=== PATIENT | female | born 1995 | race Caucasian/White ===

== ENCOUNTER → 2021-02-11 14:50 | Outpatient (CLI) | payer OTHER, SELFPAY ==
[2021-02-11 15:15] LABS: COVID19 -Nasal RAPID POSITIVE (Negative)
== END ==
PROVIDERS: Visit Provider Physician Assistant
DX: U07.1 COVID-19 (principal)
CPT/HCPCS: 87635

== ENCOUNTER → 2021-08-29 07:06 | Outpatient (CLI) | payer OTHER, SELFPAY ==
[2021-08-29 09:34] LABS: Glucose 1 Hour 126 mg/dL (70-170)
[2021-08-29 09:34] LABS: Glucose Fasting 81 mg/dL (70-100)
[2021-08-29 09:38] LABS: Glucose Tol Interpretation INTERPRETATION
[2021-08-29 10:32] LABS: Glucose 2 Hour 115 mg/dL (70-140)
== END ==
PROVIDERS: Referring Provider Nurse Practitioner Obstetrics & Gynecology; Visit Provider Nurse Practitioner Obstetrics & Gynecology
DX: Z13.1 Encounter for screening for diabetes mellitus (principal)
CPT/HCPCS: 36415; 82951; 82952

== ENCOUNTER → 2021-09-28 12:15 | Outpatient (CLI) | payer OTHER, SELFPAY ==
--- NOTE | 2021-09-28 | DI.US.S_ITS ---
PROCEDURE: US OB >= 14 WEEKS FETUS INDICATIONS: 20 WEEK ANATOMY OUTSIDE/PRIOR DATING DATA: Last menstrual period (LMP): 05/03/2021. LMP-based estimated date of delivery (SILVIO): 02/07/2022 First dating scan (date and location): 09/28/2021. Estimated date of delivery (SILVIO) from first dating scan: 02/04/2022. TECHNIQUE: Real-time scanning was performed of the fetus, with image documentation and biometric measurements. COMPARISON: None. FINDINGS: General: A single living intrauterine gestation is present. Presentation: Transverse, head is towards maternal right side. Placenta: Placental position is right anterior, without previa. Amniotic fluid index: 18.9 cm, normal range is 5-24 cm. Single deepest vertical pocket is 5.6 cm. heart rate: 141 beats per minute. Maternal cervical canal: 4.4 cm long. Normal lower limit is 2.5 cm. biometrics: Biparietal diameter: 5.2 cm, 21 weeks, 6 days. Head circumference: 19.3 cm, 21 weeks, 4 days. Abdominal circumference: 16.0 cm, 21 weeks, 1 day. Femur length: 3.7 cm, 21 weeks, 6 days Clinically estimated gestational age: . 21 weeks, 1 day. Composite gestational age from present scan: 21 weeks, 4 days. Estimated weight and percentile: 426 g, 62% Anatomic survey: Neuro: Ventricles are non-dilated at less than 10 mm. Cisterna magna is normal at 3-11 mm. Cerebellum is normal in size and morphology. Nuchal skin fold: Normal at less than 6 mm between 14-21 weeks gestational age. Face: Nose and lips, facial profile are normal. Spine: No evidence for spina bifida. Heart: 4-chambered heart is present, with normal ventricular outflow tracts. Diaphragm: Diaphragm is intact. Stomach: Left-sided stomach is present. Kidneys: No hydronephrosis. Normal is less than 5 mm in 2nd trimester, less than 7 mm in 3rd trimester. Cord: 3-vessel cord has orthotopic insertion. Bladder: Normal in size. Extremities: All 4 extremities identified. IMPRESSION: 1. Single live intrauterine with fetus in transverse presentation. heart rate is 141 beats per minute. Normal amount of amniotic fluid. Normal growth with estimated weight measures 426 g and is at 62%. 2. Normal anatomic survey. We strive to produce accurate, complete, and clear reports of imaging services. To assist us in improving patient care, this report was composed using standard report templates and voice recognition software. Therefore, it may contain abnormal punctuation, insertions and/or omissions. Occasional wrong-word or sound-alike substitutions may occur. Though we review the report and make efforts to correct it, we do recommend that the report be read carefully in proper context to recognize any text inaccuracies. Dictated by: Mk Wallace M.D. on 09/28/2021 at 14:12 Approved by: Mk Wallace M.D. on 09/28/2021 at 14:15
== END ==
PROVIDERS: Referring Provider Nurse Practitioner Obstetrics & Gynecology; Visit Provider Nurse Practitioner Obstetrics & Gynecology
DX: Z34.92 Encounter for supervision of normal pregnancy, unspecified, second trimester (principal); Z3A.21 21 weeks gestation of pregnancy
CPT/HCPCS: 76811

== ENCOUNTER → 2021-10-31 07:10 | Outpatient (CLI) | payer OTHER, SELFPAY ==
[2021-10-31 08:55] LABS: Hematocrit 36.8 % (36-46); Hemoglobin 11.9 g/dL (12.0-16.0); Mean Corpuscular HGB Conc 32.4 % (30-36); Mean Corpuscular Hemoglobin 27.8 PG (26-34); Platelet Count 308 X10^3/uL (150-400); Red Blood Cell Count 4.28 X10^6/uL (4.0-5.2)
[2021-10-31 09:20] LABS: Glucose Fasting 80 mg/dL (70-100)
[2021-10-31 09:53] LABS: Glucose Tol Interpretation INTERPRETATION
[2021-10-31 10:15] LABS: Glucose 1 Hour 93 mg/dL (70-170)
[2021-10-31 11:44] LABS: Glucose 2 Hour 114 mg/dL (70-140)
== END ==
PROVIDERS: Referring Provider Nurse Practitioner Obstetrics & Gynecology; Visit Provider Nurse Practitioner Obstetrics & Gynecology
DX: Z34.90 Encounter for supervision of normal pregnancy, unspecified, unspecified trimester (principal); Z3A.26 26 weeks gestation of pregnancy
CPT/HCPCS: 36415; 82951; 82952; 85027

== ENCOUNTER 2021-12-29 15:35 | Observation (INO) | payer OTHER, SELFPAY ==
[2021-12-29] VITALS (9 sets, daily range): BP systolic 122–141; BP diastolic 66–97; PULSE 97–116; RESP 18–29; TEMP 36.8; O2SAT 96–98; BMI 44.1
--- NOTE | 2021-12-29 15:51 | DI.RAD.S_ITS ---
PROCEDURE: XR CHEST 2V INDICATIONS: shortness of breath TECHNIQUE: 2 views of the chest were acquired. COMPARISON: None. FINDINGS: Surgical changes and devices: None. Lungs and pleura: Lungs are clear. No pleural effusions or pneumothorax. Mediastinum: Mediastinal contours are normal. Heart size is normal. Bones and chest wall: No suspicious bony abnormalities. Soft tissues appear unremarkable. IMPRESSION: No acute pulmonary process. Dictated by: Radha Lind M.D. on 12/29/2021 at 15:21 Approved by: Radha Lind M.D. on 12/29/2021 at 15:21
--- NOTE | 2021-12-29 16:24 | ED_ITS ---
HPI - Chest Pain General Chief Complaint: Chest Pain Stated Complaint: Troubled breathing, possible UTI Time Seen by Provider: 12/29/21 16:05 Source: patient Mode of arrival: Ambulatory Limitations: no limitations History of Present Illness HPI narrative: Patient is a 26-year-old female currently 34 weeks history of asthma presenting today this chest discomfort and shortness of breath. She says been ongoing for the last 4 days. She has been using her albuterol inhaler but not getting much relief. She says that she has or shortness of breath with exertion normal all. She experiences some chest tightness as well. She denies any fever or cough. She is having some abdominal pain affect yesterday she felt like she did when she stood up yesterday but today it is better. No vaginal bleeding. She also is having some low back discomfort with has low discomfort. No vaginal bleeding. Related Data Previous Rx's Medication Instructions Recorded albuterol sulfate 90 mcg/actuation 2 puff INHALATION Q4-6H PRN #8.5 g 02/11/21 aerosol inhaler cephalexin 500 mg capsule 500 mg PO BID 7 Days #14 cap 12/29/21 Review of Systems Review of Systems Narrative: GENERAL: Denies chills, fatigue, malaise, fever, sweats, travel HEENT: Denies sinus pain, ear pain, sore throat, difficulty swallowing, neck pain RESPIRATORY: See HPI CARDIOVASCULAR: see HPI GASTROINTESTINAL: Denies nausea, vomiting, abdominal pain, diarrhea, constipation, melena. : Denies dysuria, frequency, incontinence, hematuria, urinary retention, flank pain. MUSCULOSKELETAL: Denies weakness, joint pain, or bony pain SKIN: No rash, no erythema, no pruritus NEUROLOGIC: Denies weakness, dizziness, headache, numbness, change in speech, confusion PSYCHIATRIC: No concerning psychosocial issues. 12 point review of systems is negative except for those stated above and HPI Patient History Social History Smoking Status: Never smoker Smoking Status: Never smoker Exam Initial Vital Signs Initial Vital Signs: Vital Signs Temperature 98.3 F 12/29/21 15:50 Pulse Rate 116 H 12/29/21 15:50 Respiratory Rate 18 12/29/21 15:50 Blood Pressure 122/85 12/29/21 15:50 Pulse Oximetry 98 12/29/21 15:50 GENERAL: Alert pleasant 26-year-old female and in no acute distress. HEENT: Head atraumatic,EOMI, pupils reactive, face symmetric, moist mucous membranes CARDIOVASCULAR: Regular rate and rhythm without murmurs, rubs or gallops. RESPIRATORY: Breath sounds equal bilaterally, no wheezes rales or rhonchi. ABDOMEN: Soft, nontender. Gravid nontender. Normoactive bowel sounds all 4 quadrants. No guarding or rebound. : No CVA tenderness EXTREMITIES: Normal range of motion, no clubbing or edema. Neurovascularly intact NEUROLOGICAL: Alert and oriented x4.Normal gait and speech. SKIN: Warm, dry, no laceration, no petechiae, no rashes or lesions. Course Orders Ordered: ED Orders 12/29/21 15:51 XR chest 2V Stat EKG-12 Lead Stat Measure peak expiratory flow ONCE RT Consult Eval and Treat Now 12/29/21 16:05 UA Complete [Urinalysis and Microscopic] Stat 12/29/21 16:19 COVID19 -Nasal RAPID/Pre-Proc Stat Complete Blood Count AUTO DIFF Stat Comprehensive Metabolic Panel Stat NT-proBNP (BNP-Adult 18+) Stat Prothrombin Time INR Stat 12/29/21 17:55 Troponin & CK Cardiac Panel Stat Discontinued Medications Albuterol (Albuterol 2.5 Mg/3 Ml Neb (Adult)) 2.5 mg INH NOW ONE Stop: 12/29/21 16:32 Last Admin: 12/29/21 17:33 Dose: 2.5 mg Documented by: RIYA Lactated Ringer's (Lactated Ringers) 1,000 mls @ 1,000 mls/hr IV BOLUS ONE Stop: 12/29/21 18:01 Last Infusion: 12/29/21 18:13 Dose: 0 mls/hr Documented by: Admin: 12/29/21 17:05 Dose: 1,000 mls/hr Documented by: OMAR Vital Signs Vital signs: Vital Signs - 8 hr 12/29/21 15:50 12/29/21 16:13 12/29/21 16:30 Temperature 98.3 F Pulse Rate 116 H 104 H 98 H Respiratory Rate 18 19 Blood Pressure 122/85 140/97 H Pulse Oximetry 98 97 97 12/29/21 17:00 12/29/21 17:30 12/29/21 18:00 Temperature Pulse Rate 101 H 100 H 99 H Respiratory Rate 29 H 23 25 H Blood Pressure 132/66 141/79 H 126/74 Pulse Oximetry 96 98 96 12/29/21 18:30 12/29/21 19:00 12/29/21 19:30 Temperature Pulse Rate 103 H 97 H 98 H Respiratory Rate 19 20 24 Blood Pressure 127/78 127/82 123/77 Pulse Oximetry 97 97 96 MDM - Chest Pain Lab Data Result diagrams: 12/29/21 16:19 12/29/21 16:19 Labs: Lab Results 12/29/21 12/29/21 12/29/21 Range/Units 16:05 16:19 16:19 WBC 18.4 H (4.5-11.0) X10^3/uL RBC 4.24 (4.0-5.2) X10^6/uL Hgb 11.7 L (12.0-16.0) g/dL Hct 34.5 L (36-46) % MCV 81.4 (80-100) fL MCH 27.5 (26-34) PG MCHC 33.8 (30-36) % RDW 13.1 (11.6-14.8) % Plt Count 346 (150-400) X10^3/uL Neut % (Auto) 74.7 (50-75) % Lymph % (Auto) 16.8 L (25-40) % [place] % (Auto) 5.6 (3-14) % Eos % (Auto) 2.0 (2-4) % Baso % (Auto) 0.9 (0-2) % Neut # (Auto) 43159 H (4737-0751) /uL Lymph # (Auto) 3100 (2692-2673) /uL [place] # (Auto) 1000 H (0-900) /uL Eos # (Auto) 400 (0-450) /uL Baso # (Auto) 200 H (0-100) /uL PT 11.1 (10.1-12.7) SECONDS INR 1.0 (0.9-1.3) Sodium (137-145) mmol/L Potassium (3.4-5.1) mmol/L Chloride (98-107) mmol/L Carbon Dioxide (22-32) mmol/L BUN (7-17) mg/dL Creatinine (0.52-1.04) mg/dL Estimated GFR (>60) mL/min BUN/Creatinine Ratio (6-22) Glucose (70-100) mg/dL Lactate Calcium (8.4-10.2) mg/dL Total Bilirubin (0.2-1.3) mg/dL AST (14-36) IU/L ALT (<35) IU/L Alkaline Phosphatase (38-126) U/L Total Creatine Kinase (30-135) U/L CK-MB (CK-2) CK-MB (CK-2) Rel Index Troponin I (0.01-0.034) ng/mL NT-Pro-B Natriuret Pep (<125) pg/mL Total Protein (6.3-8.2) g/dL Albumin (3.5-5.0) g/dL Globulin (1.7-4.1) g/dL Albumin/Globulin Ratio (1.0-2.8) Urine Color Yellow Urine Appearance Clear Urine pH 7.0 (4.5-8.0) Ur Specific [place] 1.010 (1.000-1.035) Urine Protein Negative (Negative) Urine Glucose (UA) Negative (Negative) g/dL Urine Ketones Negative (NEGATIVE) Urine Occult Blood Negative (Negative) Urine Nitrate Negative (Negative) Urine Bilirubin Negative (NEGATIVE) Urine Urobilinogen 0.2 (0.2) E.U./dL Ur Leukocyte Esterase Negative (NEGATIVE) Urine RBC 0-1/hpf (0-5/HPF) Urine WBC 0-1/hpf (0-5/HPF) Ur Squamous Epith Cells 1-5 /hpf (0-5/HPF) Urine Bacteria Moderate (10-30) H (None) Ur Culture Indicated? Cult not indicated SARS-CoV-2 (PCR) (Negative) 12/29/21 12/29/21 12/29/21 Range/Units 16:19 16:19 16:19 WBC (4.5-11.0) X10^3/uL RBC (4.0-5.2) X10^6/uL Hgb (12.0-16.0) g/dL Hct (36-46) % MCV (80-100) fL MCH (26-34) PG MCHC (30-36) % RDW (11.6-14.8) % Plt Count (150-400) X10^3/uL Neut % (Auto) (50-75) % Lymph % (Auto) (25-40) % [place] % (Auto) (3-14) % Eos % (Auto) (2-4) % Baso % (Auto) (0-2) % Neut # (Auto) (1608-9507) /uL Lymph # (Auto) (7039-3273) /uL [place] # (Auto) (0-900) /uL Eos # (Auto) (0-450) /uL Baso # (Auto) (0-100) /uL PT (10.1-12.7) SECONDS INR (0.9-1.3) Sodium 135 L (137-145) mmol/L Potassium 3.9 (3.4-5.1) mmol/L Chloride 107 (98-107) mmol/L Carbon Dioxide 19 L (22-32) mmol/L BUN 9 (7-17) mg/dL Creatinine 0.52 (0.52-1.04) mg/dL Estimated GFR > 60 (>60) mL/min BUN/Creatinine Ratio 17.3 (6-22) Glucose 87 (70-100) mg/dL Lactate Cancelled Calcium 8.8 (8.4-10.2) mg/dL Total Bilirubin 0.3 (0.2-1.3) mg/dL AST 22 (14-36) IU/L ALT 17 (<35) IU/L Alkaline Phosphatase 140 H (38-126) U/L Total Creatine Kinase (30-135) U/L CK-MB (CK-2) CK-MB (CK-2) Rel Index Troponin I (0.01-0.034) ng/mL NT-Pro-B Natriuret Pep < 11 (<125) pg/mL Total Protein 7.2 (6.3-8.2) g/dL Albumin 4.0 (3.5-5.0) g/dL Globulin 3.2 (1.7-4.1) g/dL Albumin/Globulin Ratio 1.3 (1.0-2.8) Urine Color Urine Appearance Urine pH (4.5-8.0) Ur Specific [place] (1.000-1.035) Urine Protein (Negative) Urine Glucose (UA) (Negative) g/dL Urine Ketones (NEGATIVE) Urine Occult Blood (Negative) Urine Nitrate (Negative) Urine Bilirubin (NEGATIVE) Urine Urobilinogen (0.2) E.U./dL Ur Leukocyte Esterase (NEGATIVE) Urine RBC (0-5/HPF) Urine WBC (0-5/HPF) Ur Squamous Epith Cells (0-5/HPF) Urine Bacteria (None) Ur Culture Indicated? SARS-CoV-2 (PCR) Negative (Negative) 12/29/21 Range/Units 17:55 WBC (4.5-11.0) X10^3/uL RBC (4.0-5.2) X10^6/uL Hgb (12.0-16.0) g/dL Hct (36-46) % MCV (80-100) fL MCH (26-34) PG MCHC (30-36) % RDW (11.6-14.8) % Plt Count (150-400) X10^3/uL Neut % (Auto) (50-75) % Lymph % (Auto) (25-40) % [place] % (Auto) (3-14) % Eos % (Auto) (2-4) % Baso % (Auto) (0-2) % Neut # (Auto) (1676-9408) /uL Lymph # (Auto) (3545-8636) /uL [place] # (Auto) (0-900) /uL Eos # (Auto) (0-450) /uL Baso # (Auto) (0-100) /uL PT (10.1-12.7) SECONDS INR (0.9-1.3) Sodium (137-145) mmol/L Potassium (3.4-5.1) mmol/L Chloride (98-107) mmol/L Carbon Dioxide (22-32) mmol/L BUN (7-17) mg/dL Creatinine (0.52-1.04) mg/dL Estimated GFR (>60) mL/min BUN/Creatinine Ratio (6-22) Glucose (70-100) mg/dL Lactate Calcium (8.4-10.2) mg/dL Total Bilirubin (0.2-1.3) mg/dL AST (14-36) IU/L ALT (<35) IU/L Alkaline Phosphatase (38-126) U/L Total Creatine Kinase 70 (30-135) U/L CK-MB (CK-2) TNP CK-MB (CK-2) Rel Index TNP Troponin I < 0.012 (0.01-0.034) ng/mL NT-Pro-B Natriuret Pep (<125) pg/mL Total Protein (6.3-8.2) g/dL Albumin (3.5-5.0) g/dL Globulin (1.7-4.1) g/dL Albumin/Globulin Ratio (1.0-2.8) Urine Color Urine Appearance Urine pH (4.5-8.0) Ur Specific [place] (1.000-1.035) Urine Protein (Negative) Urine Glucose (UA) (Negative) g/dL Urine Ketones (NEGATIVE) Urine Occult Blood (Negative) Urine Nitrate (Negative) Urine Bilirubin (NEGATIVE) Urine Urobilinogen (0.2) E.U./dL Ur Leukocyte Esterase (NEGATIVE) Urine RBC (0-5/HPF) Urine WBC (0-5/HPF) Ur Squamous Epith Cells (0-5/HPF) Urine Bacteria (None) Ur Culture Indicated? SARS-CoV-2 (PCR) (Negative) Imaging Data Chest x-ray: Radiologist's Impression: t: Ann Camarillo MR#: [id number] : 1995 Acct:[id number] Age/Sex: 26 / F Date of Service: 12/29/21 Loc: Accession Number: [id number] ?? Procedure: XR chest 2V Ordering Provider: Leah Nguyen D.O. PROCEDURE:? XR CHEST 2V ? INDICATIONS:? shortness of breath ? TECHNIQUE:? 2 views of the chest were acquired.? ? COMPARISON:? None. ? FINDINGS:? ? Surgical changes and devices:? None.? ? Lungs and pleura:? Lungs are clear.? No pleural effusions or pneumothorax.? ? Mediastinum:? Mediastinal contours are normal.? Heart size is normal.? ? Bones and chest wall:? No suspicious bony abnormalities.? Soft tissues appear unremarkable.? ? IMPRESSION:? No acute pulmonary process. ? ? Dictated by: Radha Lind M.D. on 12/29/2021 at 15:21 ? ? Approved by: Radha Lind M.D. on 12/29/2021 at 15:21? ECG Data Interpretation: Normal sinus rhythm rate 104 LA interval 142 QRS [address] changes no T- wave inversions no priors to compare MDM Narrative Medical decision making narrative: Patient has a history of a of asthma she has had increasing shortness of breath and some chest tightness. No fever or productive cough. Chest x-ray is negative. She Is Given albuterol, no significant change. She is noted to have leukocytosis but likely related to . Urinalysis does not show leukocytes or nitrates but is positive for bacteria without wbc's. Treat her for a UTI. She is given a L fluid while in the emergency department as well. Patient is then taken over to L&D for further evaluation. Discharge Plan Departure Patient Disposition: Home Clinical Impression: Asthma, UTI (urinary tract infection)
[2021-12-29 16:45] LABS: Add Manual Diff / Slide Review NO; Basophils Absolute Auto 200 /uL (0-100); Basophils Percent Auto 0.9 % (0-2); Eosinophils Absolute Auto 400 /uL (0-450); Hematocrit 34.5 % (36-46); Hemoglobin 11.7 g/dL (12.0-16.0); Lymphocytes Absolute Auto 3100 /uL (1100-4500); Lymphocytes Percent Auto 16.8 % (25-40); Mean Corpuscular HGB Conc 33.8 % (30-36); Mean Corpuscular Hemoglobin 27.5 PG (26-34); Mean Corpuscular Volume 81.4 fL (80-100); Monocytes Absolute Auto 1000 /uL (0-900); Monocytes Percent Auto 5.6 % (3-14); Neutrophils Absolute Auto 13800 /uL (1500-7000); Neutrophils Percent Auto 74.7 % (50-75); Platelet Count 346 X10^3/uL (150-400); Red Blood Cell Count 4.24 X10^6/uL (4.0-5.2); Red Cell Distribution Width 13.1 % (11.6-14.8); White Blood Cell Count 18.4 X10^3/uL (4.5-11.0)
--- NOTE | 2021-12-29 16:49 | PC.NURSE ---
Pt reports 5/10 substernal chest pressure, intermittent SOB, dizziness and occasional spots in my vision that began 12/26/21. States she is 34 weeks . heart assessed at 159 via doppler. Pt took tylenol this morning and reported no relief of chest pressure.
[2021-12-29 16:58] LABS: Prothrombin Time 11.1 SECONDS (10.1-12.7)
[2021-12-29 17:03] LABS: Alanine Aminotransferase 17 IU/L (<35); Albumin Globulin Ratio 1.3 (1.0-2.8); Alkaline Phosphatase 140 U/L (38-126); Aspartate Aminotransferase 22 IU/L (14-36); BUN Creatinine Ratio 17.3 (6-22); Bilirubin Total 0.3 mg/dL (0.2-1.3); Blood Urea Nitrogen 9 mg/dL (7-17); Calcium 8.8 mg/dL (8.4-10.2); Carbon Dioxide 19 mmol/L (22-32); Chloride 107 mmol/L (98-107); Estimated Glomerular Filt Rate > 60 mL/min (>60); Globulin 3.2 g/dL (1.7-4.1); Glucose 87 mg/dL (70-100); HEMOLYSIS < 15 (0-50); Potassium 3.9 mmol/L (3.4-5.1); Sodium 135 mmol/L (137-145); Total Protein 7.2 g/dL (6.3-8.2)
[2021-12-29] MEDS: LACTATED RINGERS 1,000 ML 1000 ML IV (17:05)
[2021-12-29 17:06] LABS: COVID19 -Nasal RAPID Negative (Negative)
[2021-12-29 17:12] LABS: NT-proBNP (BNP-Adult 18+) < 11 pg/mL (<125)
[2021-12-29] MEDS: ALBUTEROL 2.5 MG/3 ML NEB (ADULT) INH (17:33)
[2021-12-29 18:07] LABS: Creatine Kinase 70 U/L (30-135)
[2021-12-29 18:20] LABS: Troponin I < 0.012 ng/mL (0.01-0.034)
[2021-12-29 19:15] LABS: Appearance Urine UA CLEAR; Bilirubin Urine UA NEGATIVE (NEGATIVE); Color Urine UA YELLOW; Glucose Urine UA NEGATIVE (Negative); Ketones Urine UA NEGATIVE (NEGATIVE); Leukocyte Esterase Urine UA NEGATIVE (NEGATIVE); Nitrite Urine UA NEGATIVE (Negative); Occult Blood Urine UA NEGATIVE (Negative); Protein Urine UA NEGATIVE (Negative); Urobilinogen Urine UA 0.2 E.U./dL (0.2)
[2021-12-29 19:22] LABS: Bacteria Urine Moderate (10-30); Culture Indicated Urine Cult Not Indicated; RBC Urine 0-1/HPF (0-5/HPF); Squamous Epithelial Cell Urine 1-5 /HPF (0-5/HPF); WBC Urine 0-1/HPF (0-5/HPF)
--- NOTE | 2021-12-29 19:37 | PC.NURSE ---
Pt discharging to Center, called Center concerning IV and they requested IV stay until their evaluation, state they will d/c the IV.
--- NOTE | 2021-12-29 20:46 | PM.OBTRLD ---
Visit Information Visit Information Date of evaluation: 12/29/21 Primary OB Provider: Gloria Bowman On-call OB Provider: Maria Del Carmen Laureano Reason for Evaluation: Yes non-stress test Vital Signs Vital Signs: Vital Signs - 8 hr 12/29/21 15:50 12/29/21 16:13 12/29/21 16:30 Temperature 98.3 F Pulse Rate 116 H 104 H 98 H Respiratory Rate 18 19 Blood Pressure 122/85 140/97 H Pulse Oximetry 98 97 97 12/29/21 17:00 12/29/21 17:30 12/29/21 18:00 Temperature Pulse Rate 101 H 100 H 99 H Respiratory Rate 29 H 23 25 H Blood Pressure 132/66 141/79 H 126/74 Pulse Oximetry 96 98 96 12/29/21 18:30 12/29/21 19:00 12/29/21 19:30 Temperature Pulse Rate 103 H 97 H 98 H Respiratory Rate 19 20 24 Blood Pressure 127/78 127/82 123/77 Pulse Oximetry 97 97 96 [facility] Social History Smoking Status: Never smoker Exam Vital Signs (past 8 hours): - 12/29/21 15:50 12/29/21 16:13 12/29/21 16:30 Temperature 98.3 F Pulse Rate 116 H 104 H 98 H Respiratory Rate 18 19 Blood Pressure 122/85 140/97 H Pulse Oximetry 98 97 97 12/29/21 17:00 12/29/21 17:30 12/29/21 18:00 Temperature Pulse Rate 101 H 100 H 99 H Respiratory Rate 29 H 23 25 H Blood Pressure 132/66 141/79 H 126/74 Pulse Oximetry 96 98 96 12/29/21 18:30 12/29/21 19:00 12/29/21 19:30 Temperature Pulse Rate 103 H 97 H 98 H Respiratory Rate 19 20 24 Blood Pressure 127/78 127/82 123/77 Pulse Oximetry 97 97 96 Oxygen Delivery Method Room Air Objective Labs Result Diagrams: 12/29/21 16:19 12/29/21 16:19 Labs: Laboratory Results - last 24 hr 12/29/21 12/29/21 12/29/21 16:05 16:19 16:19 WBC 18.4 H RBC 4.24 Hgb 11.7 L Hct 34.5 L MCV 81.4 MCH 27.5 MCHC 33.8 RDW 13.1 Plt Count 346 Neut % (Auto) 74.7 Lymph % (Auto) 16.8 L [place] % (Auto) 5.6 Eos % (Auto) 2.0 Baso % (Auto) 0.9 Neut # (Auto) 43357 H Lymph # (Auto) 3100 [place] # (Auto) 1000 H Eos # (Auto) 400 Baso # (Auto) 200 H PT 11.1 INR 1.0 Sodium Potassium Chloride Carbon Dioxide BUN Creatinine Estimated GFR BUN/Creatinine Ratio Glucose Lactate Calcium Total Bilirubin AST ALT Alkaline Phosphatase Total Creatine Kinase CK-MB (CK-2) CK-MB (CK-2) Rel Index Troponin I NT-Pro-B Natriuret Pep Total Protein Albumin Globulin Albumin/Globulin Ratio Urine Color Yellow Urine Appearance Clear Urine pH 7.0 Ur Specific [place] 1.010 Urine Protein Negative Urine Glucose (UA) Negative Urine Ketones Negative Urine Occult Blood Negative Urine Nitrate Negative Urine Bilirubin Negative Urine Urobilinogen 0.2 Ur Leukocyte Esterase Negative Urine RBC 0-1/hpf Urine WBC 0-1/hpf Ur Squamous Epith Cells 1-5 /hpf Urine Bacteria Moderate (10-30) H Ur Culture Indicated? Cult not indicated SARS-CoV-2 (PCR) 12/29/21 12/29/21 12/29/21 16:19 16:19 16:19 WBC RBC Hgb Hct MCV MCH MCHC RDW Plt Count Neut % (Auto) Lymph % (Auto) [place] % (Auto) Eos % (Auto) Baso % (Auto) Neut # (Auto) Lymph # (Auto) [place] # (Auto) Eos # (Auto) Baso # (Auto) PT INR Sodium 135 L Potassium 3.9 Chloride 107 Carbon Dioxide 19 L BUN 9 Creatinine 0.52 Estimated GFR > 60 BUN/Creatinine Ratio 17.3 Glucose 87 Lactate Cancelled Calcium 8.8 Total Bilirubin 0.3 AST 22 ALT 17 Alkaline Phosphatase 140 H Total Creatine Kinase CK-MB (CK-2) CK-MB (CK-2) Rel Index Troponin I NT-Pro-B Natriuret Pep < 11 Total Protein 7.2 Albumin 4.0 Globulin 3.2 Albumin/Globulin Ratio 1.3 Urine Color Urine Appearance Urine pH Ur Specific [place] Urine Protein Urine Glucose (UA) Urine Ketones Urine Occult Blood Urine Nitrate Urine Bilirubin Urine Urobilinogen Ur Leukocyte Esterase Urine RBC Urine WBC Ur Squamous Epith Cells Urine Bacteria Ur Culture Indicated? SARS-CoV-2 (PCR) Negative 12/29/21 17:55 WBC RBC Hgb Hct MCV MCH MCHC RDW Plt Count Neut % (Auto) Lymph % (Auto) [place] % (Auto) Eos % (Auto) Baso % (Auto) Neut # (Auto) Lymph # (Auto) [place] # (Auto) Eos # (Auto) Baso # (Auto) PT INR Sodium Potassium Chloride Carbon Dioxide BUN Creatinine Estimated GFR BUN/Creatinine Ratio Glucose Lactate Calcium Total Bilirubin AST ALT Alkaline Phosphatase Total Creatine Kinase 70 CK-MB (CK-2) TNP CK-MB (CK-2) Rel Index TNP Troponin I < 0.012 NT-Pro-B Natriuret Pep Total Protein Albumin Globulin Albumin/Globulin Ratio Urine Color Urine Appearance Urine pH Ur Specific [place] Urine Protein Urine Glucose (UA) Urine Ketones Urine Occult Blood Urine Nitrate Urine Bilirubin Urine Urobilinogen Ur Leukocyte Esterase Urine RBC Urine WBC Ur Squamous Epith Cells Urine Bacteria Ur Culture Indicated? SARS-CoV-2 (PCR) Evaluation Evaluation Baseline heart rate: 130 Variability: Moderate (11-25) monitor accelerations: Present Monitor Decelerations: Absent Category of Tracing: Reactive Diagnosis, Plan/Disposition Final Diagnosis (1) 34 weeks gestation of : Status: Acute Plan/Disposition Plan: 26 year old at 34 weeks gestation evaluated in the ER for chest pain, SOB and possible UTI. Work up reassuring, labs and CXR normal. Urine without infection. She was then sent to the center for NST which is reactive. Denies contractions, leaking or bleeding. Follow up for next OB appointment or return to center as indicated. OB Disposition: home
== END 2021-12-29 20:50 | disposition home or self-care (01) ==
LOC: ED 19:33 → LABOR 19:51
PROVIDERS: Admitting Provider Family Medicine; Emergency Provider Emergency Medicine; Referring Provider Family Medicine; Visit Provider Family Medicine
DX: O26.893 Other specified pregnancy related conditions, third trimester (principal); R07.9 Chest pain, unspecified; J45.909 Unspecified asthma, uncomplicated; O23.43 Unspecified infection of urinary tract in pregnancy, third trimester; N39.0 Urinary tract infection, site not specified; Z3A.34 34 weeks gestation of pregnancy; Z20.822 Contact with and (suspected) exposure to COVID-19
CPT/HCPCS: 36415; 59025; 71046; 80053; 81001; 82550; 83880; 84484; 85025; 85610; 87635; 93005; 93010; 99284; C9803; G0378; J7613

== ENCOUNTER → 2022-01-13 15:22 | Outpatient (ROUT) | payer OTHER, SELFPAY | PROVIDERS: Visit Provider Nurse Practitioner Obstetrics & Gynecology | DX: Z34.90 Encounter for supervision of normal pregnancy, unspecified, unspecified trimester (principal); Z36.85 Encounter for antenatal screening for Streptococcus B; Z3A.36 36 weeks gestation of pregnancy | CPT/HCPCS: 87081 ==

== ENCOUNTER 2022-02-07 05:43 | Inpatient (IN) | payer OTHER, MEDICAID, SELFPAY ==
[2022-02-07 07:51] LABS: Creatinine Urine Random 42.9 mg/dL; Protein (Total) Urine Random 1.3 mg/dL (0-12); Protein Creatinine Ratio Urine 0.03 GRAM/24H
--- NOTE | 2022-02-07 07:58 | PM.OBTRLD ---
Visit Information Visit Information Date of evaluation: 02/07/22 Primary OB Provider: Gloria Bowman On-call OB Provider: Alexandro Calle Reason for Evaluation: Yes other Comments/Additional reasons for admission: 26YO @ 40 weeks EGA by LMP and 7wk US who presents for evaluation of blood pressure. Was feeling dizzy in the shower last night and checked her BP a few times overnight, all were elevated >140/90. No SOLORIO, vision changes, RUQ pain or increased edema. Uncomplicated PN care w/ CNM. Agreeable to IOL at any time. Desires low intervention . is present and supportive. PFSH Social History Smoking Status: Never smoker Objective Labs Labs: Laboratory Results - last 24 hr 02/07/22 07:00 U Random Total Protein 1.3 Urine Creatinine 42.9 Protein/Creatinin Ratio 0.03
[2022-02-07 08:13] LABS: Uric Acid 3.9 mg/dL (2.5-6.2)
[2022-02-07 08:39] LABS: Add Manual Diff / Slide Review NO; Basophils Absolute Auto 100 /uL (0-100); Basophils Percent Auto 0.4 % (0-2); Eosinophils Absolute Auto 200 /uL (0-450); Eosinophils Percent Auto 1.4 % (2-4); Hematocrit 34.5 % (36-46); Hemoglobin 11.4 g/dL (12.0-16.0); Lymphocytes Absolute Auto 3000 /uL (1100-4500); Lymphocytes Percent Auto 20.3 % (25-40); Mean Corpuscular HGB Conc 33.1 % (30-36); Mean Corpuscular Volume 78.4 fL (80-100); Monocytes Absolute Auto 900 /uL (0-900); Monocytes Percent Auto 5.9 % (3-14); Neutrophils Absolute Auto 10700 /uL (1500-7000); Platelet Count 308 X10^3/uL (150-400); Red Cell Distribution Width 13.8 % (11.6-14.8); White Blood Cell Count 14.9 X10^3/uL (4.5-11.0)
--- NOTE | 2022-02-07 08:39 | P.HPOB_ITS ---
OB HPI Date/Time Date of admission: 02/07/22 Date Patient Seen: 02/07/22 Time Patient Seen: 07:20 History of Present Condition Chief complaint: OBS : 1 Para: 0 Estimated Date of Delivery: 02/07/22 Estimated Gestational Age (weeks): 40.0 Narrative: Ann Camarillo is a 26 year old female @ 40 weeks EGA by LMP and 7wk US who presents for evaluation of blood pressure. Was feeling dizzy in the shower last night and checked her BP a few times overnight, all were elevated >140/90. No SOLORIO, vision changes, RUQ pain or increased edema. Uncomplicated PN care w/ CNM. Labile BPs in clinic with first elevated BP @ 36 weeks and negative preeclampsia labs at that time. Agreeable to IOL at any time. Desires low intervention . is present and supportive. Comments: VS: BP 142/92, HR 90, T 36.1C Temporal Indications Indication for induction OB: gestational HTN/pre-eclampsia History of Present care: good care, initiated at week # (8), number of visits (10) and pounds weight gain (19) Dating criteria: LMP confirmed by 1st trimester US Ultrasounds: normal mid trimester US Obstetrical complications: gestational hypertension Medical complications: none Preadmission Labs Blood type: O (+) positive -: Antibody screen: negative, GBS status: negative, HBsAG: negative, HIV: negative and RPR/VDLR: negative -: Chlamydia screen: not detected and Gonorrhea screen: not detected -: Rubella: immune and Varicella: immune HCT: 36.8 HCAB: negative PAP: Normal Cell-free DNA: Negative Narrative: Hgb A1c: 5.1, Early 2hr gtt: 81/126/115, 25wk 2hr gtt: 80/93/114 Evaluation Evaluation Baseline heart rate: 135 Variability: Moderate (11-25) monitor accelerations: Present Monitor Decelerations: Absent Contraction Frequency (minutes): 0 Category of Tracing: Reactive Status: Category l Dilation (cm): 1.5 Effacement (%): 75 Dilation: 1-2 cm Effacement: 60-70% station: -3 Position of cervix: posterior Consistency: soft Stone score: 5 Comments: Macdonald balloon placed during exam and inflated w/ 60mL NS. [facility] Medical History (Updated 02/07/22 @ 08:54 by Gloria Bowman CNM) Anxiety Asthma Bipolar 1 disorder Depression Morbid obesity with BMI of 40.0-44.9, adult PCOS (polycystic ovarian syndrome) Surgical History (Updated 02/07/22 @ 08:54 by Gloria Bowman CNM) H/O bilateral breast reduction surgery Social History (Updated 02/07/22 @ 08:55 by Gloria Bowman CNM) marital status: household members: spouse lives independently: Yes occupational status: employed Smoking Status: Never smoker Meds Home Medications and Allergies Home Medications Medication Instructions Recorded Confirmed Type albuterol sulfate 90 mcg/actuation 2 puff inhalation Q4-6H PRN 02/11/21 02/11/21 Rx aerosol inhaler shortness of breath or wheezing #8.5 grams Allergies Allergy/AdvReac Type Severity Reaction Status Date / Time No Known Drug Allergies Allergy Verified 02/07/22 07:03 Review of Systems Review of Systems ROS: Yes All systems reviewed with the patient and are negative except as otherwise documented OB Exam Resp Effort & Inspection: normal respiratory effort Auscultation: clear to auscultation bilaterally Cardio Rate: regular rate Rhythm: regular rhythm Presentation: vertex Objective Labs Result Diagrams: 02/07/22 07:40 02/07/22 07:40 Labs: Laboratory Results - last 24 hr 02/07/22 02/07/22 07:00 07:30 Uric Acid 3.9 U Random Total Protein 1.3 Urine Creatinine 42.9 Protein/Creatinin Ratio 0.03 SARS-CoV-2: POSITIVE Assessment and Plan Assessment and Plan Assessment and Plan narrative: A: Term [place]ara IOL for GHTN No indication for GBS prophylaxis BMI 42 Asthma Droplet precautions indicated Cat I FHR P: Admit, routine orders. Obtained informed consent for IOL for GHTN prior to initiating cervical ripening. Low dose (not to exceed 6mu/min) pitocin until Macdonald balloon is out. Discussed POC w/ who is in agreement. BPs Q hour and continuous EFM.
[2022-02-07 08:46] LABS: Aspartate Aminotransferase 36 IU/L (14-36); Blood Urea Nitrogen 11 mg/dL (7-17); Estimated Glomerular Filt Rate > 60 mL/min (>60)
[2022-02-07 09:26] LABS: COVID19 -Nasal RAPID POSITIVE (Negative)
[2022-02-07] MEDS: ONDANSETRON 4 MG/2 ML INJ IV (11:10)
[2022-02-07 12:19] VITALS: BP 141/98
--- NOTE | 2022-02-07 12:25 | PM.OBPNLAB ---
Date/Time Date Patient Seen: 02/07/22 Time Patient Seen: 12:25 Pain Control Pain control: tolerating well (breathing through regular contractions) Comments: Has been vomiting and ambulating in the room. Nausea improved with IV Zofran. COVID precautions in place. VS: BP 128/78, HR 92bp, RR 18/min. T 35.6C Temporal Pelvic Exam Effacement (%): 75 station: -3 Comments: CE deferred. Macdonald balloon still in place. Contractions Monitor mode: External Pitocin rate (mU/min): 0 Contraction frequency (min): 2 Contraction duration (min): 1 Contraction pattern: Regular Contraction intensity: Moderate Status status: Category l Heart Rate Baseline: 135 Monitor Accelerations: Present Monitor Decelerations: Absent Assessment and Plan Assessment: induction ongoing Plan: continuous present management and begin patient augmentation Comments: RN unable to initiate low dose pitocin d/t staffing. Plan to augment w/ pitocin, per protocol 1, soon. Reassess after Macdonald balloon is out.
[2022-02-07] MEDS: LACTATED RINGERS 1,000 ML 100 ML IV (13:34)
[2022-02-07] MEDS: METOCLOPRAMIDE 10 MG/2 ML INJ IV (13:36)
[2022-02-07] MEDS: fentaNYL 100 MCG/2 ML INJ IV (13:39)
[2022-02-07] MEDS: OXYTOCIN PREMIX 30 UNIT/500 ML PLAST..BAG IV (14:10)
--- NOTE | 2022-02-07 16:28 | PM.OBPNLAB ---
Date/Time Date Patient Seen: 02/07/22 Time Patient Seen: 16:00 Pain Control Pain control: epidural (resting comfortably) Comments: VS: 120/56, HR 107bpm, T 36.3C Temporal Pelvic Exam Dilation (cm): 7 Effacement (%): 90 station: -1 Comments: Macdonald bag removed from vagina prior to exam. BBOW. Contractions Monitor mode: External Pitocin rate (mU/min): 1 Contraction frequency (min): 2 Contraction duration (min): 1 Contraction pattern: Regular Contraction intensity: Moderate Status status: Category l Heart Rate Baseline: 130 Monitor Accelerations: Present Monitor Decelerations: Absent Monitor Variability: Moderate Assessment and Plan Assessment: active labor Plan: continuous present management Comments: Reassess in 4 hours or sooner, PRN
--- NOTE | 2022-02-07 20:01 | PM.OBPRVD ---
Events: Induced HTN Labor & Delivery Delivery date: 02/07/22 Intrapartal Events: None Cervical ripening method: per Macdonald bulb protocol Induction method: none Delivery augmentation: pitocin Delivery monitor: external FHT and external uterine Route of delivery: Episiotomy description: None L&D Laceration Description: Perineal - 1st Degree Delivery repair: chromic (3.0) Estimated blood loss (mL): 150 Anesthesia Type: Epidural Narrative: Ann began to feel increasing rectal pressure with an anterior lip. Was assisted to high Johnson[employer] and labored down for 30 minutes. Pushing was initiated at 1853. Patient pushed well on her left side with coaching and encouragement. NSVB of a vigorous baby girl in LILIANE position. A compound right hand was manually reduced. The shoulders delivered without additional maneuvers and a loose body cord was noted. was placed on maternal abdomen for drying and skin to skin. Remaining 30 units of pitocin in 500mL LR was increased to 250mL/hr for AMTSL. After cessation of pulsation, the cord was double clamped by CNM and cut by FOB. Cord blood sample was collected. Gentle cord traction led to spontaneous, Schultze delivery of an apparently intact placenta. Fundus was immediately firm and bleeding was minimal. Inspection revealed a short first degree perineal laceration, repaired w/ 3.0 chromic in the usual fashion, under adequate epidural anesthesia. QBL 150mL. Both mother and baby stable and skin to skin as I left the room. [place] Baby 1: Infant gender: Female Presentation: vertex Position: Right Occiput Anterior Placenta delivery description: Spontaneous Cord Vessel Description: 3 Vessels and Around Body x1 score (1 min): 9 score (5 min): 9 weight: 3.68 kg Plan for aftercare: Routine care
[2022-02-07] MEDS: KETOROLAC 30 MG/ML VIAL IV (22:17)
[2022-02-08] MEDS: IBUPROFEN 600 MG TABLET PO ×3 (04:24→18:02)
--- NOTE | 2022-02-08 07:36 | P.DS_ITS ---
Discharge Providers Provider Date of admission: 02/07/22 05:43 Discharge Date: 02/08/22 Primary care physician: LORRIE Arellano Consults: 02/08/22 19:59 Consult to Cant Hooker Routine Comment: Discharge provider: Gloria Bowman CNM Summary Hospital Course Date Patient Seen: 02/08/22 Time Patient Seen: 07:36 Diagnoses: O70.0 Hospital Course: PPD1 S/P NSVB w/ 1st degree perineal laceration. Voiding and ambulating independently. Needs lots of help with breast feeding. Tolerating a general diet. Pain is well controlled w/ PO medication. Vaginal bleeding is minimal with no clots. Feels ready for d/c to home once breast feeding is better established. Peripartum Data Delivery Method: Natural Vaginal Laceration Description: Perineal - 1st Degree Episiotomy description: None complications: none [place] 1: Gender: Female Disposition of : home Discharge Diagnosis (1) COVID-19 affecting puerperium: Status: Acute Problem Details: asymptomatic (2) First degree perineal laceration during delivery: Status: Acute Problem Details: routine course Status at Discharge Cognitive/behavioral status at discharge: oriented Functional status at discharge: independent ambulation Overall status at discharge: patient is progressing back to baseline Time Spent with Patient Time attestation: Total time spent providing and/or coordinating discharge services: Objective Labs Result Diagrams: 02/07/22 07:40 02/07/22 07:40 Labs: Laboratory Results - last 24 hr 02/07/22 02/07/22 02/07/22 07:00 07:30 07:40 WBC 14.9 H RBC 4.40 Hgb 11.4 L Hct 34.5 L MCV 78.4 L MCH 26.0 MCHC 33.1 RDW 13.8 Plt Count 308 Neut % (Auto) 72.0 Lymph % (Auto) 20.3 L [place] % (Auto) 5.9 Eos % (Auto) 1.4 L Baso % (Auto) 0.4 Neut # (Auto) 05862 H Lymph # (Auto) 3000 [place] # (Auto) 900 Eos # (Auto) 200 Baso # (Auto) 100 BUN Creatinine Estimated GFR BUN/Creatinine Ratio Uric Acid 3.9 AST U Random Total Protein 1.3 Urine Creatinine 42.9 Protein/Creatinin Ratio 0.03 SARS-CoV-2 (PCR) Blood Type Antibody Screen 02/07/22 02/07/22 02/07/22 07:40 08:52 08:52 WBC RBC Hgb Hct MCV MCH MCHC RDW Plt Count Neut % (Auto) Lymph % (Auto) [place] % (Auto) Eos % (Auto) Baso % (Auto) Neut # (Auto) Lymph # (Auto) [place] # (Auto) Eos # (Auto) Baso # (Auto) BUN 11 Creatinine 0.58 Estimated GFR > 60 BUN/Creatinine Ratio 19.0 Uric Acid 4.0 AST 36 U Random Total Protein Urine Creatinine Protein/Creatinin Ratio SARS-CoV-2 (PCR) Positive H Blood Type O Positive Antibody Screen Negative Exam Vital Signs (past 8 hours): BP 113/74mmHg HR 95bp, RR 18/min, T 36.4C Temporal Other: Fundus firm @ u-1, lochia scant, no clots. Perineum well approximated. Discharge Plan Discharge Plan Patient Disposition: Home Provider Discharge Comment: once is independent, after contultation Discharge orders & Medications Prescriptions: New ibuprofen 600 mg Tablet 600 mg PO Q6HR PRN (Reason: Pain, Mild (1-3)) 14 Days Qty: 60 0RF Continued albuterol sulfate 90 mcg/actuation HFA aerosol inhaler 2 puff inhalation Q4-6H PRN (Reason: shortness of breath or wheezing) Qty: 8.5 2RF Follow up/Referrals: Gloria Bowman CNM [[employer]] - (1. 12:45pm Sunday, February 22, 2022 TeleHealth Call on 2. 10:15am Sunday, March 20, 2022 appointment in office) Diet/Activity/Treatments Diet: Diet as Tolerated Activity: pelvic rest x 6 weeks Skin/Wound/Dressing Care Report to your healthcare provider any signs of infection, such as:: chills, fever, increased pain, unusual drainage and unusual redness Visit Report/Discharge Packet Instructions: Depression
[2022-02-08] MEDS: ACETAMINOPHEN 325 MG TABLET 650 MG PO ×2 (10:29→18:02)
[2022-02-08] MEDS: DERMOPLAST SPRAY 20% 60 ML 1 SPRAY TOP (10:29)
[2022-02-08 16:29] VITALS: BP 114/67; PULSE 87; RESP 18; TEMP 36.6
== END 2022-02-08 18:17 | disposition home or self-care (01) | DRG 805 ==
PROVIDERS: Admitting Provider Nurse Practitioner Obstetrics & Gynecology; Visit Provider Nurse Practitioner Obstetrics & Gynecology
DX: O98.52 Other viral diseases complicating childbirth (principal); U07.1 COVID-19; Z37.0 Single live birth; O48.0 Post-term pregnancy; Z3A.40 40 weeks gestation of pregnancy; O13.4 Gestational [pregnancy-induced] hypertension without significant proteinuria, complicating childbirth; O70.0 First degree perineal laceration during delivery
CPT/HCPCS: 01967; 36415; 59025; 59050; 82570; 84156; 84450; 84550; 85025; 86850; 86900; 86901; 87635; C9803; G0379; J1885; J2405; J2590; J2765; J3010

== ENCOUNTER → 2023-11-14 13:31 | Outpatient (CLI) | payer OTHER, MEDICAID, SELFPAY ==
[2023-11-14 14:49] LABS: Hemoglobin A1C% w Est Avg Glu 5.2 % (4.0-6.0)
[2023-11-14 15:14] LABS: BUN Creatinine Ratio 15.3 (6-22); Blood Urea Nitrogen 9 mg/dL (7-17); Estimated Glomerular Filt Rate > 60 mL/min (>60)
== END ==
PROVIDERS: PCP Nurse Practitioner Family; Referring Provider Nurse Practitioner Family; Visit Provider Nurse Practitioner Family
DX: R73.03 Prediabetes (principal)
CPT/HCPCS: 36415; 82565; 83036; 84520

== ENCOUNTER 2023-12-17 09:26 | Emergency (ER) | payer OTHER, MEDICAID, SELFPAY ==
[2023-12-17 09:32] VITALS: BP 121/87; PULSE 88; RESP 14; TEMP 36.3; O2SAT 99; BMI 42.3
--- NOTE | 2023-12-17 09:35 | DI.US.S_ITS ---
PROCEDURE: US OB <= 14 WEEKS FETUS INDICATIONS: vag bleeding, lmp 09/19/23, + IUP per previous us. OUTSIDE/PRIOR DATING DATA: Last menstrual period (LMP): 09/19/2023. LMP-based estimated date of delivery (SILVIO): 06/25/2024. First dating scan (date and location): 12/17/2023. Estimated date of delivery (SILVIO) from first dating scan: 06/20/2024. TECHNIQUE: Real-time scanning was performed of the fetus and maternal pelvic organs, with image documentation. Endovaginal scanning was also performed to better visualize the fetus and maternal ovaries. COMPARISON: None. FINDINGS: Embryo: Single live intrauterine with gestational age of 13 weeks 3 days corresponding to crown-rump length at 7.3 cm. Heart rate: 152 beats per minute Maternal organs: Ovaries are not well seen. IMPRESSION: Single live intrauterine with gestational age today of 13 weeks 3 days. We strive to produce accurate, complete, and clear reports of imaging services. To assist us in improving patient care, this report was composed using standard report templates and voice recognition software. Therefore, it may contain abnormal punctuation, insertions and/or omissions. Occasional wrong-word or sound-alike substitutions may occur. Though we review the report and make efforts to correct it, we do recommend that the report be read carefully in proper context to recognize any text inaccuracies. Dictated by: Radha Lind M.D. on 12/17/2023 at 11:43 Approved by: Radha Lind M.D. on 12/17/2023 at 11:44
[2023-12-17 10:02] LABS: Add Manual Diff / Slide Review NO; Basophils Absolute Auto 100 /uL (0-100); Basophils Percent Auto 0.6 % (0-2); Eosinophils Absolute Auto 200 /uL (0-450); Eosinophils Percent Auto 1.8 % (2-4); Hemoglobin 12.6 g/dL (12.0-16.0); Lymphocytes Absolute Auto 3500 /uL (1100-4500); Lymphocytes Percent Auto 27.7 % (25-40); Mean Corpuscular HGB Conc 33.2 % (30-36); Mean Corpuscular Hemoglobin 26.5 PG (26-34); Monocytes Absolute Auto 600 /uL (0-900); Monocytes Percent Auto 4.4 % (3-14); Neutrophils Absolute Auto 8200 /uL (1500-7000); Neutrophils Percent Auto 65.5 % (50-75); Platelet Count 315 X10^3/uL (150-400); Red Blood Cell Count 4.76 X10^6/uL (4.0-5.2); Red Cell Distribution Width 16.2 % (11.6-14.8); White Blood Cell Count 12.5 X10^3/uL (4.5-11.0)
[2023-12-17 10:08] LABS: Alanine Aminotransferase 14 IU/L (<35); Albumin Globulin Ratio 1.4 (1.0-2.8); Alkaline Phosphatase 112 U/L (38-126); Aspartate Aminotransferase 17 IU/L (14-36); Bilirubin Total 0.4 mg/dL (0.2-1.3); Blood Urea Nitrogen 6 mg/dL (7-17); Calcium 8.7 mg/dL (8.4-10.2); Carbon Dioxide 22 mmol/L (22-32); Chloride 108 mmol/L (98-107); Estimated Glomerular Filt Rate > 60 mL/min (>60); Globulin 2.8 g/dL (1.7-4.1); Glucose 89 mg/dL (70-100); HEMOLYSIS < 15 (0-50); Potassium 3.8 mmol/L (3.4-5.1); Sodium 135 mmol/L (137-145); Total Protein 6.8 g/dL (6.3-8.2)
--- NOTE | 2023-12-17 10:42 | ED.GENADULT ---
HPI - General Adult General Chief complaint: Vaginal Bleeding Stated complaint: 12 WEEKS , BLEEDING Time Seen by Provider: 12/17/23 09:57 Source: patient Mode of arrival: Ambulatory History of Present Illness HPI narrative: 28-year-old at 12 weeks comes in complaining of blood in the toilet after voiding. She initially thought that it was coming from her vagina, she placed a pad and came to the emergency department immediately. She now is wondering if it was simply gross hematuria. She notes the has been going well, she has not complaining of vaginal discharge, pelvic cramping or any loss of vaginal fluid. She also is not having any suprapubic tenderness, dysuria, flank pain, fevers or general malaise. No nausea vomiting or diarrhea. Related Data Home Medications Medication Instructions Recorded Confirmed metformin 500 mg tablet 500 mg PO BID 11/14/23 11/14/23 Previous Rx's Medication Instructions Recorded albuterol sulfate 90 mcg/actuation 2 puff inhalation Q4-6H PRN 02/11/21 aerosol inhaler shortness of breath or wheezing #8.5 grams metformin 500 mg tablet,extended 500 mg PO BID #180 tabs 11/14/23 release 24 hr Allergies Allergy/AdvReac Type Severity Reaction Status Date / Time fluoxetine [From Prozac] Allergy Severe Agitated Verified 12/17/23 09:35 nitrofurantoin Allergy Severe Nausea Verified 12/17/23 09:35 [From Macrobid] Review of Systems Review of Systems Narrative: Pertinent positive and negative findings as per HPI Patient History Medical History Anxiety Depression PCOS (polycystic ovarian syndrome) Bipolar 1 disorder Morbid obesity with BMI of 40.0-44.9, adult Asthma Surgical History H/O bilateral breast reduction surgery Social History marital status: household members: spouse lives independently: Yes occupational status: employed Smoking Status: Former smoker Smoking Status: Former smoker alcohol intake frequency: 0-2 drinks per day Substance Use Type: does not use Exam Initial Vital Signs Initial Vital Signs: Vital Signs Temperature 97.3 F L 12/17/23 09:32 Pulse Rate 88 12/17/23 09:32 Respiratory Rate 14 12/17/23 09:32 Blood Pressure 121/87 12/17/23 09:32 Pulse Oximetry 99 12/17/23 09:32 Oxygen Delivery Method Room Air 12/17/23 09:32 General: Alert appropriate in no acute distress Respiratory: Able to speak in full sentences, no obvious respiratory distress Abdomen: No lower quadrant or pelvic pain on palpation. No flank tenderness. Skin: No obvious rashes, warm and dry Neurologic: Grossly intact no obvious asymmetries or abnormalities Psych: appropriate insight and affect, cooperative Course Orders Ordered: ED Orders 12/17/23 09:35 US OB <= 14 weeks fetus Stat 12/17/23 09:50 Complete Blood Count AUTO DIFF Stat Comprehensive Metabolic Panel Stat HCG Quantitative /Beta subunit Stat Vital Signs Vital signs: Vital Signs - 8 hr 12/17/23 09:32 Temperature 97.3 F L Pulse Rate 88 Respiratory Rate 14 Blood Pressure 121/87 Pulse Oximetry 99 Oxygen Delivery Method Room Air Medical Decision Making Lab Data 12/17/23 09:50 12/17/23 09:50 Labs: Lab Results 12/17/23 Range/Units 09:50 WBC 12.5 H (4.5-11.0) X10^3/uL RBC 4.76 (4.0-5.2) X10^6/uL Hgb 12.6 (12.0-16.0) g/dL Hct 38.0 (36-46) % MCV 80.0 (80-100) fL MCH 26.5 (26-34) PG MCHC 33.2 (30-36) % RDW 16.2 H (11.6-14.8) % Plt Count 315 (150-400) X10^3/uL Neut % (Auto) 65.5 (50-75) % Lymph % (Auto) 27.7 (25-40) % [place] % (Auto) 4.4 (3-14) % Eos % (Auto) 1.8 L (2-4) % Baso % (Auto) 0.6 (0-2) % Neut # (Auto) 8200 H (4972-3248) /uL Lymph # (Auto) 3500 (7790-6264) /uL [place] # (Auto) 600 (0-900) /uL Eos # (Auto) 200 (0-450) /uL Baso # (Auto) 100 (0-100) /uL Sodium 135 L (137-145) mmol/L Potassium 3.8 (3.4-5.1) mmol/L Chloride 108 H (98-107) mmol/L Carbon Dioxide 22 (22-32) mmol/L BUN 6 L (7-17) mg/dL Creatinine 0.46 L (0.52-1.04) mg/dL Estimated GFR > 60 (>60) mL/min BUN/Creatinine Ratio 13.0 (6-22) Glucose 89 (70-100) mg/dL Calcium 8.7 (8.4-10.2) mg/dL Total Bilirubin 0.4 (0.2-1.3) mg/dL AST 17 (14-36) IU/L ALT 14 (<35) IU/L Alkaline Phosphatase 112 (38-126) U/L Total Protein 6.8 (6.3-8.2) g/dL Albumin 4.0 (3.5-5.0) g/dL Globulin 2.8 (1.7-4.1) g/dL Albumin/Globulin Ratio 1.4 (1.0-2.8) MDM Narrative Medical decision making narrative: CC: with bleeding, question vaginal versus urinary Complicating co-morbidities: 12 week , BMI of 42 Data collected from: patient Differential considered: Urinary tract infection, miscarriage, cervical bleeding Exam documented above, pertinent findings include: Exam is entirely benign. Patient has not noticed any additional bleeding since arrival in the emergency department. Urine is quite concentrated, has gross hematuria and quite a bit of debris appreciated Lab Test results independently reviewed as above. Pertinent findings: CBC shows mild leukocytosis without significant left shift consistent with CMP is unremarkable Imaging studies independently reviewed: Initial impression of ultrasound shows 13.3 weeks in size heart rate in the 150 range, active fetus, no signs of abnormalities or placental abruption Discussion: 28-year-old woman at 12-13 weeks gestational age with what appears to be a developing urinary tract infection without signs or symptoms of sepsis. With urinary tract infection early asymptomatic will treat with amoxicillin to make sure that group B strep is covered. Urine will be cultured and she will be contacted should antibiotic choice need to be changed. Reviewed signs and symptoms of miscarriage as well as developing sepsis and pyelonephritis and patient or are well aware of need to return to the emergency department with any of these. At this point additional imaging, blood work or hospitalization are not required. Questions are answered and they are safe for discharge Discharge Plan Departure Patient Disposition: Home Clinical Impression: 12 weeks gestation of Urinary tract infection Qualifiers: Urinary tract infection type: acute cystitis Hematuria presence: with hematuria Qualified Code(s): N30.01 - Acute cystitis with hematuria Instructions: DI for Urinary Tract Infection (UTI) Activity Restrictions/Additional Instructions: Thank you for coming in today Your urine is quite concentrated, I would recommend quite a bit more water today. It does look like the bleeding is coming from your bladder and in your urine rather than your vagina. I am going to treat you with the amoxicillin for 7 days for a bladder infection. Your urine did we cultured and if changes to antibiotics required we will contact you. In the meantime, if you notice fevers, chills, flank pain or other signs of sickness you do need to return to the ER We did ultrasound your baby. Baby appears to be growing appropriately and there are no complications. The bleeding does not appear to be coming from your vagina If you find that you are getting worse or develop any new symptoms, please feel free to return to the emergency department for further evaluation. Prescriptions: No Action albuterol sulfate 90 mcg/actuation HFA aerosol inhaler 2 puff inhalation Q4-6H PRN (Reason: shortness of breath or wheezing) Qty: 8.5 2RF metformin 500 mg tablet 500 mg PO BID metformin 500 mg tablet extended release 24 hr 500 mg PO BID Qty: 180 2RF Referrals: Valencia Albert FNP-BC [Primary Care Provider] - Stand Alone Forms: Patient Portal/API
[2023-12-17 10:49] LABS: HCG Quantitative /Beta subunit 28313 mIU/mL
[2023-12-17 11:18] LABS: Appearance Urine UA CLOUDY; Bilirubin Urine UA NEGATIVE (NEGATIVE); Color Urine UA RED; Glucose Urine UA NEGATIVE (Negative); Ketones Urine UA NEGATIVE (NEGATIVE); Leukocyte Esterase Urine UA TRACE (NEGATIVE); Nitrite Urine UA NEGATIVE (Negative); Occult Blood Urine UA 3+ (Negative); Protein Urine UA 2+ (Negative); Specific Gravity Urine UA 1.015 (1.000-1.035)
[2023-12-17 11:20] VITALS: BP 126/77; PULSE 73; RESP 16; O2SAT 98
[2023-12-17 11:20] LABS: pH Urine UA 8.5 (4.5-8.0)
[2023-12-17 11:27] LABS: Bacteria Urine Many (>30); Culture Indicated Urine Specimen Cultured; RBC Urine 30-100/HPF (0-5/HPF); Squamous Epithelial Cell Urine 1-5 /HPF (0-5/HPF); Urine Volume 10mL (spun); WBC Urine 0-1/HPF (0-5/HPF)
== END 2023-12-17 11:20 | disposition home or self-care (01) ==
PROVIDERS: Emergency Provider Emergency Medicine; PCP Nurse Practitioner Family
DX: O23.11 Infections of bladder in pregnancy, first trimester (principal); N30.01 Acute cystitis with hematuria; Z3A.12 12 weeks gestation of pregnancy
CPT/HCPCS: 36415; 76801; 80053; 81001; 84702; 85025; 87086; 99281; 99283

== ENCOUNTER 2023-12-23 07:42 | Observation (INO) | payer OTHER, MEDICAID, SELFPAY ==
[2023-12-23] VITALS (28 sets, daily range): BP systolic 99–165; BP diastolic 60–113; PULSE 67–114; RESP 10–34; TEMP 36.3–36.7; O2SAT 95–100; BMI 42.3
[2023-12-23 08:15] LABS: Appearance Urine UA CLOUDY; Bilirubin Urine UA NEGATIVE (NEGATIVE); Color Urine UA RED; Glucose Urine UA NEGATIVE (Negative); Ketones Urine UA TRACE (NEGATIVE); Leukocyte Esterase Urine UA TRACE (NEGATIVE); Nitrite Urine UA NEGATIVE (Negative); Occult Blood Urine UA 3+ (Negative); Protein Urine UA 2+ (Negative); Specific Gravity Urine UA >=1.030 (1.000-1.035)
[2023-12-23 08:16] LABS: Bacteria Urine Occasional (0-1); Culture Indicated Urine Specimen Cultured; RBC Urine >100/HPF (0-5/HPF); Squamous Epithelial Cell Urine 0-1 /HPF (0-5/HPF); Urine Volume 9; WBC Urine 1-5/HPF (0-5/HPF); pH Urine UA 5.5 (4.5-8.0)
--- NOTE | 2023-12-23 08:20 | ED.FEMALEGU ---
HPI - Female Genitourinary General Chief complaint: Urogenital-Female Stated complaint: bladder infect. spread to kidneys per pt/14wk preg Time Seen by Provider: 12/23/23 08:20 Source: patient, RN notes reviewed and old records reviewed Mode of arrival: Ambulatory Limitations: no limitations History of Present Illness HPI Narrative: 28-year-old female 14 weeks who was seen a week ago initially thought she was having vaginal bleeding but then thought hematuria and was started on amoxicillin. Patient's urine culture from 12/17/2023 shows mixed Gram-positive harry. Patient also had ultrasound single intrauterine live 13 weeks and 3 days of 52 beats per minute. Patient states she has not had any additional bleeding throughout the week until today. She has had increasing suprapubic pain that is felt crampy and then radiating up to her left flank. Patient denies any fevers or chills. When the pain became quite intense she has been nauseated had some episodes of vomiting but that just started today. She states she has had a bowel movement yesterday thought she was little constipated but did not feel like she did not have a bowel movement today. She denies any dysuria, urgency or frequency. She denies any persistent hematuria this week. She denies any vaginal bleeding or fluid leakage. Patient states she did take a dose of Tylenol at 7:00 a.m. patient states she has almost completed her amoxicillin. She does have allergies to fluoxetine and Macrobid. Former smoker, occasional alcohol, no recreational drugs. Valencia Albert is her primary care. Gloria Kerns is her provider. Related Data Home Medications Medication Instructions Recorded Confirmed vit 122-ferrous fumarate 1 tab PO DAILY 12/23/23 12/23/23 27 mg iron-folic acid 800 mcg tablet ( Multi) Previous Rx's Medication Instructions Recorded albuterol sulfate 90 mcg/actuation 2 puff inhalation Q4-6H PRN 02/11/21 aerosol inhaler shortness of breath or wheezing #8.5 grams amoxicillin 500 mg capsule 500 mg PO TID #21 caps 12/17/23 Allergies Allergy/AdvReac Type Severity Reaction Status Date / Time fluoxetine [From Prozac] AdvReac Severe Agitated Verified 12/23/23 08:59 nitrofurantoin AdvReac Severe Nausea Verified 12/23/23 08:59 [From Macrobid] Review of Systems Review of Systems ROS Unobtainable: All systems reviewed & are unremarkable except as noted in HPI and below Patient History Medical History Ovarian cyst (~2015) Anxiety Depression PCOS (polycystic ovarian syndrome) Bipolar 1 disorder (~2014) Morbid obesity with BMI of 40.0-44.9, adult Asthma Surgical History Anesthesia H/O bilateral breast reduction surgery (~01/2018) Family History Mother Hypertension Mental health problem Brother Mental health problem Brother Mental health problem Sister Mental health problem Grandfather Mental health problem Grandmother Diabetes mellitus Grandfather Skin cancer Diabetes mellitus Grandmother Mental health problem alcohol intake frequency: 0-2 drinks per day Substance Use Type: does not use Exam Narrative Exam Narrative: GENERAL: Alert and oriented x three, obese female in moderate distress HEENT: Head normocephalic, atraumatic, EOMI, pupils reactive, face symmetric, moist mucous membranes NECK: Supple, full range of motion CARDIOVASCULAR: Regular rate and rhythm without murmurs, rubs or gallops. RESPIRATORY: Breath sounds equal bilaterally, no wheezes rales or rhonchi. ABDOMEN: Soft, nontender. Normoactive bowel sounds all 4 quadrants. No guarding or rebound, rigidity, no mass : No CVA tenderness bilaterally EXTREMITIES: Normal range of motion, no clubbing or edema. Neurovascularly intact NEUROLOGICAL: Cranial nerves II through XII grossly intact. Moving all extremities SKIN: Warm, dry, no petechiae, no rashes or lesions. Initial Vital Signs Initial Vital Signs: Vital Signs Temperature 98.1 F 12/23/23 07:55 Pulse Rate 85 12/23/23 07:55 Respiratory Rate 16 12/23/23 07:55 Blood Pressure 116/87 12/23/23 07:55 Pulse Oximetry 99 12/23/23 07:55 Oxygen Delivery Method Room Air 12/23/23 07:55 Course Orders Ordered: Acetaminophen (Acetaminophen 325 Mg Tablet) 975 mg PO Q8H PRN PRN Reason: Pain, Mild (1-3) Last Admin: 12/24/23 08:12 Dose: 975 mg Documented By: CLP Albuterol (Albuterol 2.5 Mg/3 Ml Neb (Adult)) 2.5 mg INH Q4H PRN PRN Reason: shortness of breath or wheezing Hydromorphone HCl (Hydromorphone 1 Mg Inj) 1 mg IV Q3H PRN PRN Reason: Pain, Severe (7-10) Last Admin: 12/24/23 13:18 Dose: 1 mg Documented By: Admin: 12/24/23 10:05 Dose: 1 mg Documented By: Admin: 12/24/23 04:02 Dose: 1 mg Documented By: Admin: 12/23/23 22:21 Dose: 1 mg Documented By: Admin: 12/23/23 16:35 Dose: 1 mg Documented By: EV Hydromorphone HCl (Hydromorphone 2 Mg Tablet) 2 mg PO Q3H PRN PRN Reason: Pain, Moderate (4-6) Last Admin: 12/23/23 15:08 Dose: 2 mg Documented By: EV Ondansetron HCl 8 mg/ Sodium (Chloride) 54 mls @ 216 mls/hr IV Q6HR PRN PRN Reason: Nausea And Vomiting Last Infusion: 12/24/23 08:15 Dose: Infused Documented By: Admin: 12/24/23 08:00 Dose: 216 mls/hr Documented By: Infusion: 12/24/23 00:12 Dose: Infused Documented By: Admin: 12/23/23 23:57 Dose: 216 mls/hr Documented By: Infusion: 12/23/23 17:45 Dose: Infused Documented By: Admin: 12/23/23 16:25 Dose: 216 mls/hr Documented By: EV Ceftriaxone Sodium 1,000 mg/ (Sodium Chloride) 100 mls @ 200 mls/hr IV Q24H JOY Metformin HCl (Metformin Hcl 500 Mg Tablet) 500 mg PO BIDWM JOY Last Admin: 12/24/23 08:19 Dose: Not Given Documented By: Admin: 12/23/23 14:54 Dose: Not Given Documented By: EV Naloxone HCl (Naloxone 0.4 Mg/Ml Vial) 0.2 mg IV Q2MIN PRN PRN Reason: Opiate Reversal Sodium Chloride (Sodium Chloride 0.9% Flush) 10 ml IV BID JOY Last Admin: 12/24/23 08:01 Dose: 10 ml Documented By: Admin: 12/23/23 20:54 Dose: 10 ml Documented By: Admin: 12/23/23 14:45 Dose: 10 ml Documented By: EV Sodium Chloride (Sodium Chloride 0.9% Flush) 10 ml IV PRN PRN PRN Reason: Flush Discontinued Medications Hydromorphone HCl (Hydromorphone 0.5 Mg Inj) 0.5 mg IV NOW ONE Stop: 12/23/23 12:13 Last Admin: 12/23/23 13:09 Dose: 0.5 mg Documented By: ES Sodium Chloride (Normal Saline 0.9%) 1,000 mls @ 1,000 mls/hr IV BOLUS ONE Stop: 12/23/23 09:48 Last Infusion: 12/23/23 10:04 Dose: Infused Documented By: Admin: 12/23/23 09:02 Dose: 1,000 mls/hr Documented By: RB Lidocaine HCl 9 ml/ Sodium (Chloride) 59 mls @ 354 mls/hr IV NOW ONE Stop: 12/23/23 09:47 Last Infusion: 12/23/23 10:59 Dose: Infused Documented By: Admin: 12/23/23 10:44 Dose: 354 mls/hr Documented By: RB Sodium Chloride (Normal Saline 0.9%) 1,000 mls @ 1,000 mls/hr IV BOLUS ONE Stop: 12/23/23 13:11 Last Admin: 12/23/23 13:09 Dose: 1,000 mls/hr Documented By: ES Ceftriaxone Sodium 1,000 mg/ (Sodium Chloride) 100 mls @ 200 mls/hr IV NOW ONE Stop: 12/23/23 12:14 Last Infusion: 12/23/23 14:19 Dose: Infused Documented By: Admin: 12/23/23 13:09 Dose: 200 mls/hr Documented By: ES Potassium Chloride/Dextrose/Sod Cl (Dextrose 5%-0.45%Ns W/Kcl 20meq) 1,000 mls @ 125 mls/hr IV CONT JOY Last Infusion: 12/23/23 22:43 Dose: Infused Documented By: Admin: 12/23/23 14:43 Dose: 125 mls/hr Documented By: EV Ceftriaxone Sodium 1,000 mg/ (Sodium Chloride) 100 mls @ 200 mls/hr IV NOW ONE Stop: 12/23/23 14:59 Last Admin: 12/23/23 14:48 Dose: 200 mls/hr Documented By: EV Lorazepam (Lorazepam 2 Mg/Ml Inj) 0.5 mg IV NOW ONE Stop: 12/23/23 09:55 Last Admin: 12/23/23 09:58 Dose: 0.5 mg Documented By: RB Metoclopramide HCl (Metoclopramide 10 Mg/2 Ml Inj) 10 mg IV NOW ONE Stop: 12/23/23 12:13 Last Admin: 12/23/23 13:09 Dose: 10 mg Documented By: ES Morphine Sulfate (Morphine 4 Mg/Ml Inj) 4 mg IV NOW ONE Stop: 12/23/23 08:50 Last Admin: 12/23/23 09:01 Dose: 4 mg Documented By: RB Morphine Sulfate (Morphine 4 Mg/Ml Inj) 4 mg IV NOW ONE Stop: 12/23/23 10:22 Last Admin: 12/23/23 10:25 Dose: 4 mg Documented By: RB Ondansetron HCl (Ondansetron 4 Mg/2 Ml Inj) 4 mg IV NOW ONE Stop: 12/23/23 08:50 Last Admin: 12/23/23 09:01 Dose: 4 mg Documented By: RB Sodium Chloride (Sodium Chloride 0.9% Flush) 10 ml IV BID JOY Last Admin: 12/23/23 09:01 Dose: 10 ml Documented By: RB Sodium Chloride (Sodium Chloride 0.9% Flush) 10 ml IV PRN PRN PRN Reason: Flush Last Admin: 12/23/23 10:44 Dose: 10 ml Documented By: Admin: 12/23/23 10:35 Dose: 10 ml Documented By: Admin: 12/23/23 10:26 Dose: 10 ml Documented By: Admin: 12/23/23 09:56 Dose: 10 ml Documented By: Admin: 12/23/23 09:02 Dose: 10 ml Documented By: RB Vital Signs Vital signs: Vital Signs - 8 hr 12/23/23 07:55 12/23/23 09:11 12/23/23 09:11 Temperature 98.1 F Pulse Rate 85 79 Respiratory Rate 16 15 Blood Pressure 116/87 120/68 Pulse Oximetry 99 Oxygen Delivery Method Room Air 12/23/23 09:15 12/23/23 09:15 12/23/23 09:30 Temperature Pulse Rate 81 Respiratory Rate 17 Blood Pressure 113/79 121/75 Pulse Oximetry 95 Oxygen Delivery Method 12/23/23 09:30 12/23/23 09:45 12/23/23 09:45 Temperature Pulse Rate 76 67 Respiratory Rate 13 18 Blood Pressure 114/67 Pulse Oximetry 99 100 Oxygen Delivery Method 12/23/23 10:00 12/23/23 10:01 12/23/23 10:16 Temperature Pulse Rate 81 76 75 Respiratory Rate 34 H 24 Blood Pressure Pulse Oximetry 100 Oxygen Delivery Method 12/23/23 10:16 12/23/23 10:30 12/23/23 10:31 Temperature Pulse Rate 76 75 Respiratory Rate 20 24 Blood Pressure 138/83 Pulse Oximetry 99 99 Oxygen Delivery Method 12/23/23 10:32 12/23/23 10:32 12/23/23 10:46 Temperature Pulse Rate 78 81 Respiratory Rate 23 Blood Pressure 121/80 Pulse Oximetry 98 97 Oxygen Delivery Method 12/23/23 10:46 12/23/23 11:00 12/23/23 11:01 Temperature Pulse Rate 74 74 Respiratory Rate 16 18 Blood Pressure 133/82 Pulse Oximetry 98 98 Oxygen Delivery Method 12/23/23 11:01 12/23/23 11:15 12/23/23 11:15 Temperature Pulse Rate 76 Respiratory Rate 16 Blood Pressure 162/97 H 165/113 H Pulse Oximetry 98 Oxygen Delivery Method 12/23/23 11:30 12/23/23 11:31 12/23/23 11:31 Temperature Pulse Rate 79 81 Respiratory Rate 23 19 Blood Pressure 153/72 H Pulse Oximetry 97 97 Oxygen Delivery Method Room Air MDM - Female Genitourinary Lab Data 12/23/23 08:41 12/23/23 08:41 Labs: Lab Results 12/23/23 12/23/23 12/23/23 Range/Units 07:45 08:30 08:41 WBC 17.6 H (4.5-11.0) X10^3/uL RBC 4.97 (4.0-5.2) X10^6/uL Hgb 13.1 (12.0-16.0) g/dL Hct 39.8 (36-46) % MCV 80.0 (80-100) fL MCH 26.4 (26-34) PG MCHC 33.0 (30-36) % RDW 16.3 H (11.6-14.8) % Plt Count 322 (150-400) X10^3/uL Neut % (Auto) 77.6 H (50-75) % Lymph % (Auto) 17.2 L (25-40) % [place] % (Auto) 3.5 (3-14) % Eos % (Auto) 1.1 L (2-4) % Baso % (Auto) 0.6 (0-2) % Neut # (Auto) 47700 H (8614-8331) /uL Lymph # (Auto) 3000 (0962-7612) /uL [place] # (Auto) 600 (0-900) /uL Eos # (Auto) 200 (0-450) /uL Baso # (Auto) 100 (0-100) /uL Sodium 135 L (137-145) mmol/L Potassium 3.9 (3.4-5.1) mmol/L Chloride 104 (98-107) mmol/L Carbon Dioxide 25 (22-32) mmol/L BUN 11 (7-17) mg/dL Creatinine 0.55 (0.52-1.04) mg/dL Estimated GFR > 60 (>60) mL/min BUN/Creatinine Ratio 20.0 (6-22) Glucose 95 (70-100) mg/dL Lactate 1.5 (0.7-2.1) mmol/L Calcium 9.5 (8.4-10.2) mg/dL Total Bilirubin 0.3 (0.2-1.3) mg/dL AST 20 (14-36) IU/L ALT 17 (<35) IU/L Alkaline Phosphatase 111 (38-126) U/L Total Protein 7.5 (6.3-8.2) g/dL Albumin 4.4 (3.5-5.0) g/dL Globulin 3.1 (1.7-4.1) g/dL Albumin/Globulin Ratio 1.4 (1.0-2.8) Lipase 68 (23-300) U/L Procalcitonin < 0.03 (<0.5) ng/mL Urine Color Red Urine Appearance Cloudy Urine pH 5.5 (4.5-8.0) Ur Specific Linch >=1.030 H (1.000-1.035) Urine Protein 2+ H (Negative) Urine Glucose (UA) Negative (Negative) g/dL Urine Ketones Trace H (NEGATIVE) Urine Occult Blood 3+ H (Negative) Urine Nitrate Negative (Negative) Urine Bilirubin Negative (NEGATIVE) Urine Urobilinogen 1.0 (0.2) E.U./dL Ur Leukocyte Esterase Trace H (NEGATIVE) Urine RBC >100/hpf H (0-5/HPF) Urine WBC 1-5/hpf (0-5/HPF) Ur Squamous Epith Cells 0-1 /hpf (0-5/HPF) Urine Bacteria Occasional (0-1) (None) Ur Culture Indicated? Specimen cultured Vol Urine Centrifuged 9 MDM Narrative Medical decision making narrative: UA today shows 2+ protein trace ketones 3+ blood, trace leuks greater than 100 RBCs. Patient appears quite uncomfortable. She notes pain started fairly abruptly today has been asymptomatic without any hematuria that she had visualized at home for the past several days suspect she might possibly have a kidney stone she does have blood and trace leuks. Pyelonephritis is in the differential as well. Vitals are not suspicious for sepsis. Sodium is 135 potassium 3 9 chloride 104 with a CO2 of 25 and a BUN 11 creatinine 0.55 otherwise appropriate LFTs. Lactate is 1.5 protocol is 0.03 blood cultures were obtained. Labs white count of 17, was 12.5 on 12/17/2023 normal hemoglobin platelets of 322. Renal ultrasound, mild left-sided hydro, no free fluid normal size and echotexture. No significant bladder abnormality but patient had voided prior to the study. OB ultrasound, normal interval growth compared to prior ultrasound low echogenicity fluid adjacent tip of the placenta most likely related to venous legs differential includes some cardiac hemorrhage concordant preliminary with heart tones at 1:39 a.m. fluid index was not measured but within normal limits by visual inspection. UA above shows protein trace ketones 3+ blood trace leuks greater than 100 RBCs. Patient received fluids, Zofran and a dose of narcotic pain medication as she has already had Tylenol 2 hours prior to evaluation, patient had some improvement but pain then returned was given additional dose of narcotic pain medication while awaiting lidocaine for possible kidney stone. Patient states lidocaine may has been more helpful. She is still quite nauseated trend crackers but still having some emesis. Was given additional dose of medication as well as pain medication she states it helps but she is never gone below 5/10. Reviewed her findings so far. Patient's workup could be consistent with kidney stone, pyelo as a possibility patient does have possible small subchorionic hemorrhage but seems unlikely to be causing her flank pain. Patient's vitals so far been appropriate. Spoke with on-call account services associate, spoke with Dr. Foley asks for cath urine sample. Continue with antibiotics until pyelonephritis ruled out. Asks for admit to medicine but if problematic can admit to OB service with medicine consult, consult with urology. Spoke with Dr. Evans, will consult. Discussed we will get urine cath specimen. Ultrasound did not show ureteral jets but patient had just voided. Seem somewhat more consistent with kidney stone but working on ruling out pyelonephritis as well. Spoke with Dr. Danielson, hospitalist: Happy to see patient would ask patient can be admitted to OBGYN with them to consult. Spoke with Dr. Foley, he asked that patient be admitted to his service we will hold off on medicine consultation. Discharge Plan Departure Patient Disposition: Admitted As Inpatient Clinical Impression: Flank pain Hematuria Qualifiers: Hematuria type: gross Qualified Code(s): R31.0 - Gross hematuria Admit Date/Time: 12/23/23 13:16 Admit Provider: Alexandro Foley
--- NOTE | 2023-12-23 08:49 | DI.US.S_ITS ---
PROCEDURE: US RENAL COMPLETE INDICATIONS: Left flank pain, pelvic pain, hematuria, 14 weeks preg TECHNIQUE: Real-time scanning was performed of the kidneys and bladder, with image documentation. COMPARISON: [facility], [place], 12/23/2023, 9:39. FINDINGS: Kidneys: Kidneys are normal in size. Right kidney measures 9.9 cm long; left kidney measures 11.6 cm long. Right renal cortical thickness is 1.2 cm; left renal cortical thickness is 1.2 cm. Renal cortical echotexture is normal. No nephrolithiasis. No suspicious solid mass lesions. There is mild left-sided hydronephrosis. Bladder: The patient voided prior to this study, which limits evaluation. No significant bladder abnormality can be seen. Miscellaneous: No free pelvic fluid. This is a technically difficult scan, secondary to the patient's sitting up and vomiting during scanning. IMPRESSION: Mild left-sided hydronephrosis is seen. Note: Concordant preliminary findings given by the sheeter operator upon the completion of the examination to Dr. Scott at 10:20 a.m. on December 23, 2023. Dictated by: Judson Do M.D. on 12/23/2023 at 9:51 Approved by: Judson Do M.D. on 12/23/2023 at 9:52
--- NOTE | 2023-12-23 08:49 | DI.US.S_ITS ---
PROCEDURE: US OB LIMITED INDICATIONS: Left flank pain, pelvic pain, hematuria, 14 weeks preg OUTSIDE/PRIOR DATING DATA: Last menstrual period (LMP): 09/19/2023. LMP-based estimated date of delivery (SILVIO): 06/25/2024. First dating scan (date and location): 12/17/2023. Estimated date of delivery (SILVIO) from first dating scan: 06/20/2024. TECHNIQUE: Real-time scanning was performed of the fetus, with image documentation and biometric measurements. COMPARISON: [facility], RENAL COMPLETE, 12/23/2023, 9:51. [facility], OB <= 14 WEEKS FETUS, 12/17/2023, 10:19. FINDINGS: General: A single living intrauterine gestation is present. Presentation: Transverse. Placenta: Placental position is posterior, without previa. Adjacent to the tip of the placenta, there can be seen low echogenicity fluid, measuring 3.4 x 2.3 x 3 cm. Amniotic fluid index: Not measured. Within normal limits by visual inspection. heart rate: 139 beats per minute. Maternal cervical canal: Not well seen. biometrics: Biparietal diameter: 2.6 cm equals 14 weeks 3 days Head circumference: 10 cm equals 14 weeks 4 days Abdominal circumference: 8.4 cm equals 14 weeks 5 days Femur length: 1.4 cm equals 14 weeks 0 days Clinically estimated gestational age: 14 weeks 4 days Composite gestational age from present scan: 14 weeks 2 days Estimated weight and percentile: Not calculated Other: Not applicable. IMPRESSION: A single live intrauterine is seen. Normal interval growth when compared to the prior ultrasound examination. Low echogenicity fluid can be seen adjacent to the tip of the placenta, which is most likely related to venous lakes. Differential diagnosis includes subchorionic hemorrhage. Please consider short-term follow-up. Note: Concordant preliminary findings given by the winchman/crane operator upon the completion of the examination to Dr. Scott at 10:30 a.m. We strive to produce accurate, complete, and clear reports of imaging services. To assist us in improving patient care, this report was composed using standard report templates and voice recognition software. Therefore, it may contain abnormal punctuation, insertions and/or omissions. Occasional wrong-word or sound-alike substitutions may occur. Though we review the report and make efforts to correct it, we do recommend that the report be read carefully in proper context to recognize any text inaccuracies. Dictated by: Judson Do M.D. on 12/23/2023 at 9:47 Approved by: Judson Do M.D. on 12/23/2023 at 9:51
[2023-12-23 08:55] LABS: Add Manual Diff / Slide Review NO; Basophils Absolute Auto 100 /uL (0-100); Basophils Percent Auto 0.6 % (0-2); Eosinophils Absolute Auto 200 /uL (0-450); Eosinophils Percent Auto 1.1 % (2-4); Hematocrit 39.8 % (36-46); Hemoglobin 13.1 g/dL (12.0-16.0); Lymphocytes Absolute Auto 3000 /uL (1100-4500); Lymphocytes Percent Auto 17.2 % (25-40); Mean Corpuscular Hemoglobin 26.4 PG (26-34); Monocytes Absolute Auto 600 /uL (0-900); Monocytes Percent Auto 3.5 % (3-14); Neutrophils Absolute Auto 13700 /uL (1500-7000); Neutrophils Percent Auto 77.6 % (50-75); Platelet Count 322 X10^3/uL (150-400); Red Blood Cell Count 4.97 X10^6/uL (4.0-5.2); Red Cell Distribution Width 16.3 % (11.6-14.8); White Blood Cell Count 17.6 X10^3/uL (4.5-11.0)
[2023-12-23 09:01] LABS: Alanine Aminotransferase 17 IU/L (<35); Albumin 4.4 g/dL (3.5-5.0); Albumin Globulin Ratio 1.4 (1.0-2.8); Alkaline Phosphatase 111 U/L (38-126); Aspartate Aminotransferase 20 IU/L (14-36); Bilirubin Total 0.3 mg/dL (0.2-1.3); Blood Urea Nitrogen 11 mg/dL (7-17); Calcium 9.5 mg/dL (8.4-10.2); Carbon Dioxide 25 mmol/L (22-32); Chloride 104 mmol/L (98-107); Estimated Glomerular Filt Rate > 60 mL/min (>60); Globulin 3.1 g/dL (1.7-4.1); Glucose 95 mg/dL (70-100); HEMOLYSIS < 15 (0-50); Lipase 68 U/L (23-300); Potassium 3.9 mmol/L (3.4-5.1); Sodium 135 mmol/L (137-145); Total Protein 7.5 g/dL (6.3-8.2)
[2023-12-23] MEDS: ONDANSETRON 4 MG/2 ML INJ IV (09:01)
[2023-12-23] MEDS: MORPHINE 4 MG/ML INJ IV ×2 (09:01→10:25)
[2023-12-23] MEDS: SODIUM CHLORIDE 0.9% FLUSH 10 ML IV ×8 (09:01→20:54)
[2023-12-23] MEDS: SODIUM CHLORIDE 0.9% 1,000 ML 1000 ML IV ×2 (09:02→13:09)
[2023-12-23 09:06] LABS: Lactate (Lactic Acid) 1.5 mmol/L (0.7-2.1)
[2023-12-23 09:24] LABS: Procalcitonin < 0.03 ng/mL (<0.5)
[2023-12-23] MEDS: LORazepam 2 MG/ML INJ 0.5 MG IV (09:58)
[2023-12-23] MEDS: LIDOCAINE 2% (PF) 9 ML in SODIUM CHLORIDE 0.9% 50 ML 354 ML IV (10:44)
[2023-12-23] MEDS: HYDROMORPHONE 0.5 MG INJ IV (13:09)
[2023-12-23] MEDS: cefTRIAXone 1,000 MG in SODIUM CHLORIDE 0.9% 100 ML 200 MG IV ×2 (13:09→14:48)
[2023-12-23] MEDS: METOCLOPRAMIDE 10 MG/2 ML INJ IV (13:09)
[2023-12-23] MEDS: DEXTROSE 5%-0.45NS W/KCL 20MEQ 1,000 ML 125 MEQ IV (14:43)
[2023-12-23] MEDS: HYDROMORPHONE 2 MG TABLET PO (15:08)
[2023-12-23] MEDS: ONDANSETRON 8 MG in SODIUM CHLORIDE 0.9% 50 ML 216 MG IV ×2 (16:25→23:57)
[2023-12-23] MEDS: HYDROMORPHONE 1 MG INJ IV ×2 (16:35→22:21)
--- NOTE | 2023-12-23 18:56 | P.HPOB_ITS ---
History of Present Illness History of Present Illness Reason for admission: other (Left flank and hematuria) Narrative: Ann Camarillo is a 28 year old , SILVIO 06/20/2024 admitted now 14+ 2 weeks gestational age due to gross hematuria and left flank pain. Patient began having blood in her urine on 12/17/2023, was originally diagnosed with a UTI and initiated on amoxicillin 500 mg t.i.d. but her urine culture showed mixed harry. The hematuria continued but this morning the patient began having severe left- sided flank pain associated with intractable nausea and vomiting for which she came to the emergency department. A repeat culture is pending but urinalysis today again shows 2+ proteinuria and large blood. Renal and obstetrical ultrasounds earlier with the OB ultrasound demonstrating appropriate growth and a viable IUP. Renal ultrasound shows mild left-sided hydronephrosis but no ureterolithiasis or nephrolithiasis was noted. Patient denies vaginal bleeding, uterine cramping, leakage per vagina, or change in vaginal discharge. [facility] Medical History Ovarian cyst (~2015) Anxiety Depression PCOS (polycystic ovarian syndrome) Bipolar 1 disorder (~2014) Morbid obesity with BMI of 40.0-44.9, adult Asthma Surgical History Anesthesia H/O bilateral breast reduction surgery (~01/2018) Family History Mother Hypertension Mental health problem Brother Mental health problem Brother Mental health problem Sister Mental health problem Grandfather Mental health problem Grandmother Diabetes mellitus Grandfather Skin cancer Diabetes mellitus Grandmother Mental health problem Social History marital status: household members: spouse lives independently: Yes occupational status: employed Smoking Status: Former smoker Meds Home Medications and Allergies Home Medications Medication Instructions Recorded Confirmed Type albuterol sulfate 90 mcg/actuation 2 puff inhalation Q4-6H PRN 02/11/21 12/23/23 Rx aerosol inhaler shortness of breath or wheezing #8.5 grams amoxicillin 500 mg capsule 500 mg PO TID #21 caps 12/17/23 12/23/23 Rx vit 122-ferrous fumarate 1 tab PO DAILY 12/23/23 12/23/23 History 27 mg iron-folic acid 800 mcg tablet ( Multi) Allergies Allergy/AdvReac Type Severity Reaction Status Date / Time fluoxetine [From Prozac] AdvReac Severe Agitated Verified 12/23/23 08:59 nitrofurantoin AdvReac Severe Nausea Verified 12/23/23 08:59 [From Macrobid] Review of Systems Review of Systems Narrative: Problem-specific ROS positives included in HPI Exam Vital Signs (past 8 hours): - 12/23/23 11:00 12/23/23 11:01 12/23/23 11:01 Temperature Pulse Rate 74 74 Respiratory Rate 16 18 Blood Pressure 162/97 H Pulse Oximetry 98 98 Oxygen Delivery Method 12/23/23 11:15 12/23/23 11:15 12/23/23 11:30 Temperature Pulse Rate 76 79 Respiratory Rate 16 23 Blood Pressure 165/113 H Pulse Oximetry 98 97 Oxygen Delivery Method 12/23/23 11:31 12/23/23 11:31 12/23/23 11:50 Temperature Pulse Rate 81 79 Respiratory Rate 19 16 Blood Pressure 153/72 H Pulse Oximetry 97 97 Oxygen Delivery Method Room Air 12/23/23 11:50 12/23/23 12:00 12/23/23 12:00 Temperature Pulse Rate 91 H Respiratory Rate 24 Blood Pressure 131/82 139/102 H Pulse Oximetry 99 Oxygen Delivery Method 12/23/23 12:15 12/23/23 12:15 12/23/23 12:30 Temperature Pulse Rate 77 75 Respiratory Rate 17 18 Blood Pressure 139/91 H Pulse Oximetry 99 98 Oxygen Delivery Method 12/23/23 12:30 12/23/23 12:45 12/23/23 12:45 Temperature Pulse Rate 114 H Respiratory Rate 18 Blood Pressure 137/91 H 126/86 Pulse Oximetry 98 Oxygen Delivery Method 12/23/23 13:00 12/23/23 13:00 12/23/23 13:16 Temperature Pulse Rate 72 Respiratory Rate 10 L Blood Pressure 136/73 134/94 H Pulse Oximetry 98 Oxygen Delivery Method 12/23/23 13:16 12/23/23 13:30 12/23/23 13:30 Temperature Pulse Rate 85 76 Respiratory Rate 18 16 Blood Pressure 126/82 Pulse Oximetry 98 97 Oxygen Delivery Method 12/23/23 14:27 Temperature 97.7 F Pulse Rate 77 Respiratory Rate 16 Blood Pressure 105/60 Pulse Oximetry 99 Oxygen Delivery Method Oxygen Delivery Method Room Air Const General: cooperative and comfortable Nutritional Appearance: average body habitus Orientation: alert and oriented x3 HENMT Head: normal to inspection, atraumatic and abrasion Ears: hearing grossly normal bilaterally Face and sinus: face symmetric Eyes General: appearance normal, both eyes and all related structures Conjunctivae: conjunctivae normal Sclera: sclerae normal EOM: EOM intact bilaterally Neck Neck: normal visual inspection Resp Effort & Inspection: normal respiratory effort and able to speak in complete sentences Auscultation: clear to auscultation bilaterally Cardio Rate: regular rate Rhythm: regular rhythm Heart Sounds: S1 normal, S2 normal and no murmurs GI Inspection: normal to inspection and incision (Surgical dressings clean and dry) Palpation: soft, no hepatosplenomegaly and tender (Mild, diffuse postsurgical tenderness) External Female Exam: other (No significant bleeding noted) Uterus Location (Fundal Height): 14 Extrem General: no calf tenderness Psych Appearance: grossly normal Mental Status: mental status grossly normal Speech and Movement: speech and movement normal Mood: congruent mood Affect: normal affect Attitude: cooperative Thought Process: normal Thought Content: normal Judgment: judgment good Objective Imaging OB US: Radiologist's impression: PROCEDURE: US OB LIMITED, 12/23/2023 INDICATIONS: Left flank pain, pelvic pain, hematuria, 14 weeks preg OUTSIDE/PRIOR DATING DATA: Last menstrual period (LMP): 09/19/2023. LMP-based estimated date of delivery (SILVIO): 06/25/2024. First dating scan (date and location): 12/17/2023. Estimated date of delivery (SILVIO) from first dating scan: 06/20/2024. TECHNIQUE: Real-time scanning was performed of the fetus, with image documentation and biometric measurements. COMPARISON: [facility], RENAL COMPLETE, 12/23/2023, 9:51. [facility], OB <= 14 WEEKS FETUS, 12/17/2023, 10:19. FINDINGS: General: A single living intrauterine gestation is present. Presentation: Transverse. Placenta: Placental position is posterior, without previa. Adjacent to the tip of the placenta, there can be seen low echogenicity fluid, measuring 3.4 x 2.3 x 3 cm. Amniotic fluid index: Not measured. Within normal limits by visual inspection. heart rate: 139 beats per minute. Maternal cervical canal: Not well seen. biometrics: Biparietal diameter: 2.6 cm equals 14 weeks 3 days Head circumference: 10 cm equals 14 weeks 4 days Abdominal circumference: 8.4 cm equals 14 weeks 5 days Femur length: 1.4 cm equals 14 weeks 0 days Clinically estimated gestational age: 14 weeks 4 days Composite gestational age from present scan: 14 weeks 2 days Estimated weight and percentile: Not calculated Other: Not applicable. IMPRESSION: A single live intrauterine is seen. Normal interval growth when compared to the prior ultrasound examination. Low echogenicity fluid can be seen adjacent to the tip of the placenta, which is most likely related to venous lakes. Differential diagnosis includes subchorionic hemorrhage. Please consider short-term follow-up. Note: Concordant preliminary findings given by the dental amalgam processor upon the completion of the examination to Dr. Scott at 10:30 a.m. Renal US: Radiologist's impression: PROCEDURE: US RENAL COMPLETE INDICATIONS: Left flank pain, pelvic pain, hematuria, 14 weeks preg TECHNIQUE: Real-time scanning was performed of the kidneys and bladder, with image documentation. COMPARISON: [facility], , OB LIMITED, 12/23/2023, 9:39. FINDINGS: Kidneys: Kidneys are normal in size. Right kidney measures 9.9 cm long; left kidney measures 11.6 cm long. Right renal cortical thickness is 1.2 cm; left renal cortical thickness is 1.2 cm. Renal cortical echotexture is normal. No nephrolithiasis. No suspicious solid mass lesions. There is mild left-sided hydronephrosis. Bladder: The patient voided prior to this study, which limits evaluation. No significant bladder abnormality can be seen. Miscellaneous: No free pelvic fluid. This is a technically difficult scan, secondary to the patient's sitting up and vomiting during scanning. IMPRESSION: Mild left-sided hydronephrosis is seen. Note: Concordant preliminary findings given by the dental amalgam processor upon the completion of the examination to Dr. Scott at 10:20 a.m. on December 23, 2023. Labs 12/23/23 08:41 12/23/23 08:41 Labs: Laboratory Results - last 24 hr 12/23/23 12/23/23 12/23/23 07:45 08:30 08:41 WBC 17.6 H RBC 4.97 Hgb 13.1 Hct 39.8 MCV 80.0 MCH 26.4 MCHC 33.0 RDW 16.3 H Plt Count 322 Neut % (Auto) 77.6 H Lymph % (Auto) 17.2 L Placer % (Auto) 3.5 Eos % (Auto) 1.1 L Baso % (Auto) 0.6 Neut # (Auto) 50871 H Lymph # (Auto) 3000 Placer # (Auto) 600 Eos # (Auto) 200 Baso # (Auto) 100 Sodium 135 L Potassium 3.9 Chloride 104 Carbon Dioxide 25 BUN 11 Creatinine 0.55 Estimated GFR > 60 BUN/Creatinine Ratio 20.0 Glucose 95 Lactate 1.5 Calcium 9.5 Total Bilirubin 0.3 AST 20 ALT 17 Alkaline Phosphatase 111 Total Protein 7.5 Albumin 4.4 Globulin 3.1 Albumin/Globulin Ratio 1.4 Lipase 68 Procalcitonin < 0.03 Urine Color Red Urine Appearance Cloudy Urine pH 5.5 Ur Specific [place] >=1.030 H Urine Protein 2+ H Urine Glucose (UA) Negative Urine Ketones Trace H Urine Occult Blood 3+ H Urine Nitrate Negative Urine Bilirubin Negative Urine Urobilinogen 1.0 Ur Leukocyte Esterase Trace H Urine RBC >100/hpf H Urine WBC 1-5/hpf Ur Squamous Epith Cells 0-1 /hpf Urine Bacteria Occasional (0-1) Ur Culture Indicated? Specimen cultured Vol Urine Centrifuged 9 Assessment & Plan Assessment and plan (1) : Qualifiers: Weeks of gestation: 14 weeks Qualified Code(s): Z3A.14 - 14 weeks gestation of Status: Acute (2) Hematuria: Qualifiers: Hematuria type: gross Qualified Code(s): R31.0 - Gross hematuria Status: Acute (3) Flank pain: Status: Acute (4) Hydronephrosis of left kidney: Status: Acute Assessment & Plan narrative: Admit for intravenous hydration, prophylactic antibiotic therapy, antiemetic therapy, and pain management; see admission orders. Urology consult submitted to Dr. Evans. Further decisions regarding evaluation/treatment will be based on patient's clinical response and results of the urology consultation.
[2023-12-24 00:12] VITALS: BP 110/68; PULSE 74; RESP 17; TEMP 36.6; O2SAT 96
[2023-12-24 04:00] VITALS: BP 120/78; PULSE 86; RESP 18; TEMP 36.6; O2SAT 96
[2023-12-24] MEDS: HYDROMORPHONE 1 MG INJ IV ×6 (04:02→23:54)
[2023-12-24 07:00] VITALS: BP 121/86; PULSE 76; RESP 18; TEMP 36.2; O2SAT 98
[2023-12-24] MEDS: ONDANSETRON 8 MG in SODIUM CHLORIDE 0.9% 50 ML 216 MG IV ×2 (08:00→15:39)
[2023-12-24] MEDS: SODIUM CHLORIDE 0.9% FLUSH 10 ML IV ×2 (08:01→20:56)
[2023-12-24] MEDS: ACETAMINOPHEN 325 MG TABLET 975 MG PO (08:12)
[2023-12-24 11:00] VITALS: BP 121/70; PULSE 74; RESP 16; TEMP 36.4; O2SAT 97
[2023-12-24] MEDS: cefTRIAXone 1,000 MG in SODIUM CHLORIDE 0.9% 100 ML 200 MG IV (14:48)
--- NOTE | 2023-12-24 15:13 | CM.DANOTE ---
Patient is a 28 yo female who was admitted INPT on 12/23/23 for failed outpt Abx and pyelonephritis. Pt has ANGIE POSEY and KAREEM for insurance and her PCP is Valencia Albert. EMR was reviewed. Per OBGYN, pt is 14 weeks and failed out abx for UTI and admitted with hematuria and pyelonephritis and Urologist to consult. Pt lives in [place] with her spouse and child and works at baseline and active and independent and does not use DME for ambulation. Pt does not anticipate any discharge planning needs at this time and preference is home with family when medically stable. Pt anticipates spouse can transport at d/c. Plan: SW to follow closely for medical progress to confirm safe plan of discharge home with family to [place] and outpt f/u. ARIANA Woods Discharge Planning/Care Management CM Discharge Assessment Start: 12/24/23 15:10 Freq: Status: Active Protocol: Document 12/24/23 15:11 BF (Rec: 12/24/23 15:13 BF [id number]) Discharge Planning Assessment Assigned Roll Over Loader ARIANA Kenny DPOA/Assigned Designee Name informally spouse Jakob Contact Information [phone] Advance Directives? No Advance Directives on File No History Provided By Patient,Significant Other, Medical Record Has Patient been admitted in last 30 No days? Prior Living Arrangements House Household Members spouse,children Type of transporation used prior to Drives own vehicle admit Independent with ADL's Yes Is patient alert and oriented? Yes Caregiver for Another Yes: child at home Barriers to Discharge No Discharge Plan Home Transportation Arrangement Likely spouse to transport at d/c Referrals Initiated None needed Whiteboard Updated in Patient Room with Yes name and ext. # of Roll Over Loader Review Status In Process Please Provide Date Initial DC 12/24/23 Assessment Was Performed Next Review Type Continued Stay Review
[2023-12-24] MEDS: HYDROMORPHONE 2 MG TABLET PO (15:39)
--- NOTE | 2023-12-24 16:32 | P.CONS_ITS ---
History of Present Illness Consult details Date Patient Seen: 12/24/23 Time Patient Seen: 06:10 Chief complaint: bladder infect. spread to kidneys per pt/14wk preg Reason for consult: Left renal colic Requesting provider: Alexandro Calle Narrative: Ann is a 28-year-old female at 14 weeks' gestation that presented to the [facility] ED last night with complaint of acute onset hematuria followed by severe left flank and lower abdominal pain. By history, she had had a history of a recent UTI treated with oral antibiotics. Review of the microbiology laboratory does not reveal a positive culture documenting a bacterial pathogen. She denies a history of previous stones. Urinalysis at presentation demonstrated many bacteria, many rbc's, and 1-5 epithelial cells per high-power field. Current culture indicates preliminary growth is scant and too early to characterize. Renal ultrasound demonstrated mild left hydronephrosis without visible stone. She would voided just prior to the ultrasound and ureteral jets could not be assessed. She was admitted for observation of her, and the baby as well as pain control and empiric treatment for possible left pyelonephritis. She reports that she has required fairly consistent and regular administration of IV Dilaudid for pain management since admission. She has been voiding in a commode hat without recovery of an offending stone. She reports that her urine is nearly normal in coloration over the last few hours. She describes her pain in the very low back with some radiation into the left groin/inguinal region. Denies dysuria. Meds Home Medications and Allergies Home Medications Medication Instructions Recorded Confirmed Type albuterol sulfate 90 mcg/actuation 2 puff inhalation Q4-6H PRN 02/11/21 12/23/23 Rx aerosol inhaler shortness of breath or wheezing #8.5 grams amoxicillin 500 mg capsule 500 mg PO TID #21 caps 12/17/23 12/23/23 Rx vit 122-ferrous fumarate 1 tab PO DAILY 12/23/23 12/23/23 History 27 mg iron-folic acid 800 mcg tablet ( Multi) Allergies Allergy/AdvReac Type Severity Reaction Status Date / Time fluoxetine [From Prozac] AdvReac Severe Agitated Verified 12/23/23 08:59 nitrofurantoin AdvReac Severe Nausea Verified 12/23/23 08:59 [From Macrobid] Review of Systems Review of Systems ROS: Yes All systems reviewed with the patient and are negative except as otherwise documented Exam Vital Signs (past 8 hours): - 12/24/23 11:00 Temperature 97.6 F Pulse Rate 74 Respiratory Rate 16 Blood Pressure 121/70 Pulse Oximetry 97 Oxygen Flow Rate 0 Oxygen Delivery Method Room Air Oxygen Flow Rate 0 Narrative Exam Narrative: She is a well-developed, over nourished young woman in a mild element of distress. She repositioned herself a couple of times during the interview and bedside exam. Objective Labs 12/23/23 08:41 12/23/23 08:41 [facility] Medical History (Updated 12/24/23 @ 16:39 by Juan Carlos Evans MD) History of UTI Hydronephrosis, left Left flank pain Ovarian cyst (~2015) Anxiety Depression PCOS (polycystic ovarian syndrome) Bipolar 1 disorder (~2014) Morbid obesity with BMI of 40.0-44.9, adult Asthma Surgical History Anesthesia H/O bilateral breast reduction surgery (~01/2018) Family History Mother Hypertension Mental health problem Brother Mental health problem Brother Mental health problem Sister Mental health problem Grandfather Mental health problem Grandmother Diabetes mellitus Grandfather Skin cancer Diabetes mellitus Grandmother Mental health problem Social History marital status: household members: spouse and children lives independently: Yes occupational status: employed Tobacco & Substance Use Smoking Status: Former smoker Assessment & Plan Assessment and plan (1) Left flank pain: Status: Acute (2) Hydronephrosis, left: Status: Acute (3) History of UTI: Status: Acute Plan 1. Observe clinical course, pain control, and continue to strain all urine for possible stone. 2. Await final culture and sensitivity and treat as indicated while on empiric antibiotic therapy for presumed/possible left pyelonephritis. 3. Option of placement of left stent verses left ureteroscopy with or without laser lithotripsy of ureteral stone was discussed at length and in detail. In the case of the former option, if she proved not to tolerate the stent in the coming weeks, 1 still could opt for ureteroscopic intervention while still in the 2nd trimester. Explained contraindication to high-dose imaging techniques in this setting. It is clear that if she does have a ureteral stone, that she has spontaneous passage, and capture for analysis. It was agreed, to assume NPO status after midnight tonight with clinical reassessment tomorrow morning. I informed them that it is important that we signs and symptoms before more serious consideration of the to interventional options I explained above.
[2023-12-24 16:46] VITALS: BP 116/77; PULSE 88; RESP 18; TEMP 36.4; O2SAT 100
[2023-12-24 20:00] VITALS: BP 133/70; PULSE 82; RESP 17; TEMP 36.2; O2SAT 98
[2023-12-24] MEDS: SODIUM CHLORIDE 0.9% 1,000 ML 75 ML IV (20:55)
[2023-12-25] VITALS (13 sets, daily range): BP systolic 91–135; BP diastolic 44–97; PULSE 80–99; RESP 9–18; TEMP 35.8–36.4; O2SAT 95–100; BMI 42.3
[2023-12-25] MEDS: HYDROMORPHONE 1 MG INJ IV ×4 (03:24→11:18)
[2023-12-25] MEDS: HYDROMORPHONE 2 MG TABLET PO (05:09)
[2023-12-25] MEDS: ONDANSETRON 8 MG in SODIUM CHLORIDE 0.9% 50 ML 216 MG IV (07:36)
--- NOTE | 2023-12-25 09:28 | PM.PN.1 ---
Subjective Subjective Date Patient Seen: 12/25/23 Time Patient Seen: 09:28 Interval history: 28yo at 14+4wks now hospital day #2 after being admitted from the ER for flank pain and hematuria. She has been treated for presumed pyelonephritis, however her clinical course at this point seems more consistent with nephrolithiasis. Her pain has been tolerable with IV Dilaudid, and she currently rates her pain a 4/10 after a recent dose. She said her pain prior to that was a 7 to 9/10. She is experiencing extreme nausea when she has pain, however now that her pain is controlled at the moment, she does not have any nausea. She is scheduled to go to the OR today with urology at 12:30 p.m. Exam Vital Signs (past 8 hours): - 12/25/23 04:00 12/25/23 07:41 Temperature 97.1 F L 97.1 F L Pulse Rate 84 80 Respiratory Rate 18 18 Blood Pressure 132/97 H 121/84 Pulse Oximetry 97 98 Oxygen Flow Rate 0 0 Oxygen Delivery Method Room Air Oxygen Flow Rate 0 Const General: comfortable and No acute distress Nutritional Appearance: obese Resp Effort & Inspection: normal respiratory effort and able to speak in complete sentences Psych Mood: congruent mood Affect: normal affect Objective Labs 12/23/23 08:41 12/23/23 08:41 [facility] Medical History (Updated 12/25/23 @ 09:38 by Deirdre Espitia DO) First degree perineal laceration during delivery History of UTI Hydronephrosis, left Left flank pain Ovarian cyst (~2015) Anxiety Depression PCOS (polycystic ovarian syndrome) Bipolar 1 disorder (~2014) Morbid obesity with BMI of 40.0-44.9, adult Asthma Surgical History Anesthesia H/O bilateral breast reduction surgery (~01/2018) Family History Mother Hypertension Mental health problem Brother Mental health problem Brother Mental health problem Sister Mental health problem Grandfather Mental health problem Grandmother Diabetes mellitus Grandfather Skin cancer Diabetes mellitus Grandmother Mental health problem Social History marital status: household members: spouse and children lives independently: Yes occupational status: employed Smoking Status: Former smoker Assessment & Plan Assessment and plan (1) Left flank pain: Status: Acute (2) Hydronephrosis of left kidney: Status: Acute Assessment & Plan narrative: 28-year-old at 14+4 weeks admitted for flank pain, hydronephrosis, and hematuria. Patient has plans to go to the OR today with urology for stent procedure. -will plan to do an ultrasound post-procedure to ensure well being -will continue to follow along with urology while she is in the hospital Time Spent With Patient Time with patient: less than 30 minutes
[2023-12-25] MEDS: SODIUM CHLORIDE 0.9% 1,000 ML 75 ML IV (11:17)
[2023-12-25] MEDS: LACTATED RINGERS 1,000 ML 21 ML IV (12:00)
[2023-12-25] MEDS: CEFAZOLIN 2 GM/100 ML PREMIX 100 ML IV (12:38)
--- NOTE | 2023-12-25 12:43 | SUR.OPER ---
Lithotomy on padded OR bed, head on pillow, arms secured on padded arm boards at <90 degrees abduction. Legs secured in padded yellow fins stirrups.
--- NOTE | 2023-12-25 12:58 | PM.PREOP ---
Pre-operative Note Interval Note History & Physical reviewed/Exam performed by Physician: Yes Changes to H&P: No H&P completed within 30 days and has changed as indicated here:: In the interval since admission she is continued to have unrelenting left flank and low pelvic pain difficult to control with Dilaudid intravenously. Blood and urine cultures are negative. The patient and her , Jakob, have elected to proceed with cystoscopy, left ureteral stone manipulation, and left stent placement as discussed at length in detail 12/24/2023.
--- NOTE | 2023-12-25 12:59 | PM.OP.1 ---
Operative Date/Time/Diagnoses Date of procedure: 12/25/23 Pre-op diagnosis: 1. Left flank pain 2. Hematuria 3. Left hydronephrosis Post-op diagnosis: same Procedure & Clinicians Procedure: 1. Cystoscopy/left ureteral stone manipulation without removal. 2. Cystoscopy/placement left ureteral stent (6 Citizen [place] by 22-32 cm multi-length). Same procedure as scheduled: Yes Indications: 1. Intractable left flank pain. 2. Gross hematuria. 3. 14 week IUP. Surgeon: Juan Carlos Evans Click Yes if Unassisted: Yes Anesthesia Type: General Operative Notes Findings: 1. Urethra-normal position without mass, lesion, or discharge. 2. Bladder-normal urothelium throughout. There were variably sized, tiny to small, heme containing amorphous debris lying dependently base. Immediately following advancement of the 0.35 hybrid ureteral guidewire somewhat cloudy, hemorrhagic obstructive efflux was witnessed emanating from the left ureteral orifice. Closure Type: not applicable Specimen(s): none sent (Recovered material from left ureter following dilation.) Applied: other (Six [place] by 22-32 cm multi-length stent) Estimated Blood Loss (mL): 0 Blood products transfused: none Procedure in detail: The patient was positioned in supine and was administered general anesthesia. She was then repositioned in semi lithotomy with appropriate placement of radiographic lead apron posterior to the pelvis and lower abdomen. The lower abdomen, genitalia, and groin were then prepped and draped in sterile fashion. A 22 [place] panendoscope was then advanced into lower urinary tract under direct visualization with the findings as described above. Next a 0.35 hybrid guidewire was advanced through the working port of the panendoscope and advanced in the left collecting system under direct visualization. A fluoroscopic window was carefully positioned at the very uppermost left abdomen and a brief spot film verified positioning of the coil within the left intrarenal collecting system. Next, 18 [place] by 6 cm length balloon dilating catheter was advanced over the hybrid guidewire and positioned across the left ureteral vesicle junction. The balloon was then inflated to 18 atmospheres and held in position for 5 minutes. The balloon was then deflated and backloaded off the hybrid guidewire. A 6 [place] by 22-32 cm multilink stent was then selected. This was then advanced over the hybrid guidewire under direct visualization. A 2nd, brief spot film over the left renal collecting system confirmed appropriately positioned proximal coil of the stent. The hybrid guidewire was then removed. No retrieval line was left attached. The bladder was then drained completely and the panendoscope removed. The patient was then repositioned in supine, was awakened, then transported recovery in stable condition. Complications: none Post-operative Condition: stable Disposition: PACU Plan for aftercare: Transfer to acute care-obstetrical service.
--- NOTE | 2023-12-25 13:19 | SUR.PHASEI ---
heart tones 134-141 per Janelle, center RN.
[2023-12-25] MEDS: ONDANSETRON 4 MG/2 ML INJ IV (13:31)
--- NOTE | 2023-12-25 13:35 | SUR.PHASEI ---
Ultrasound done at bedside by Dr. Espitia.
--- NOTE | 2023-12-25 13:37 | SUR.PHASEI ---
Report called to Amie Rizzo.
--- NOTE | 2023-12-25 13:41 | CM.DPC ---
DCP Cont: Per MD and Urology Consult, pt taken to OR today for stent placement for ureteral stone and may need another 1-2 days pending progress. Per RN, still no concerns noted and pt remains independent in room. Plan: SW to follow post stent placement to confirm safe d/c home with family and any further identified discharge planning needs. ARIANA Woods
--- NOTE | 2023-12-25 13:52 | SUR.PHASEI ---
Patient transferred to the floor. Bedside report given to Amie Winter VS stable. Patient awake and oriented.
[2023-12-25] MEDS: AMOXICILLIN 250 MG CAPSULE 500 MG PO (16:25)
--- NOTE | 2023-12-25 16:49 | PM.DS.1 ---
History of Present Illness History of Present Illness Chief complaint: bladder infect. spread to kidneys per pt/14wk preg Discharge Providers Provider Date of admission: 12/23/23 13:16 Discharge Date: 12/25/23 Primary care physician: SHARATH Lynch Consults: 12/23/23 13:54 Consult to Urology Routine Comment: Consulting Provider: Juan Carlos Evans Reason for consultation: L. flank pain and hydronephrosis Has provider been notified: Yes Discharge provider: Deirdre Espitia DO Summary Hospital Course Discharge Diagnosis: Left flank pain Left hydronephrosis Hematuria at 14wks EGA Hospital Course: 28yo at 14wks EGA admitted from the ER for severe left flank pain and hematuria. She was initially treated for pyelonephritis, however her urine culture was mixed harry and unable to be speciated. She remained afebrile during her hospital admission. She was evaluated by urology, and underwent cystoscopy with left ureteral stent placement on 12/25/23 with significant improvement in her pain. Thus on hospital day #2, she was discharged to home and advised to follow-up with urology and her care provider. Status at Discharge Cognitive/behavioral status at discharge: oriented Functional status at discharge: independent ambulation Overall status at discharge: patient is progressing back to baseline Time Spent with Patient Time spent: Less than 30 minutes Exam Vital Signs (past 8 hours): - 12/25/23 13:04 12/25/23 13:09 12/25/23 13:17 Temperature 97.4 F L Pulse Rate 99 H 92 H 91 H Respiratory Rate 18 9 L 12 Blood Pressure 91/44 L 107/65 101/66 Pulse Oximetry 100 99 99 Oxygen Delivery Method Simple Mask Room Air Room Air Oxygen Flow Rate 8 12/25/23 13:20 12/25/23 13:34 12/25/23 13:50 Temperature 96.8 F L 97.6 F Pulse Rate 86 87 82 Respiratory Rate 9 L 12 14 Blood Pressure 108/72 110/72 132/91 H Pulse Oximetry 99 98 98 Oxygen Delivery Method Room Air Room Air Oxygen Flow Rate 0 12/25/23 14:20 Temperature Pulse Rate 80 Respiratory Rate 12 Blood Pressure 117/75 Pulse Oximetry 95 Oxygen Delivery Method Oxygen Flow Rate 0 Oxygen Delivery Method Room Air Oxygen Flow Rate 0 Const General: comfortable and No acute distress Resp Effort & Inspection: normal respiratory effort and able to speak in complete sentences Neuro Cognition: normal cognition Speech: speech normal Psych Mood: congruent mood Affect: normal affect Objective Labs 12/23/23 08:41 12/23/23 08:41 [facility] Medical History (Updated 12/25/23 @ 09:38 by Deirdre Espitia DO) First degree perineal laceration during delivery History of UTI Hydronephrosis, left Left flank pain Ovarian cyst (~2015) Anxiety Depression PCOS (polycystic ovarian syndrome) Bipolar 1 disorder (~2014) Morbid obesity with BMI of 40.0-44.9, adult Asthma Surgical History Anesthesia H/O bilateral breast reduction surgery (~01/2018) Family History Mother Hypertension Mental health problem Brother Mental health problem Brother Mental health problem Sister Mental health problem Grandfather Mental health problem Grandmother Diabetes mellitus Grandfather Skin cancer Diabetes mellitus Grandmother Mental health problem Social History marital status: household members: spouse and children lives independently: Yes occupational status: employed Smoking Status: Former smoker Discharge Assessment & Plan Assessment and Plan Assessment: 28yo at 14wks EGA with left hydronephrosis and stent placement. Plan of Treatment: -discharge home with Urology follow-up outpatient -follow-up with care provider Discharge Plan Discharge Plan Patient Disposition: Home Provider Discharge Comment: You may take tylenol as needed for pain. You may use oxycodone as needed for breakthrough pain. Follow-up with urology and midwifery care as scheduled. Discharge orders & Medications Prescriptions: New oxycodone 5 mg capsule 5 mg PO Q6H PRN (Reason: pain) Qty: 7 0RF Continued albuterol sulfate 90 mcg/actuation HFA aerosol inhaler 2 puff inhalation Q4-6H PRN (Reason: shortness of breath or wheezing) Qty: 8.5 2RF amoxicillin 500 mg capsule 500 mg PO TID Qty: 21 0RF Multi 27-800 mg-mcg Tablet 1 tab PO DAILY Follow up/Referrals: Juan Carlos Evans MD [Physician] - McKittrick,Brandee S, CNM, PAD MACHINE OPERATOR [Advanced Operational Risk Analyst] - Diet/Activity/Treatments Diet: Diet as Tolerated Activity: As tolerated. Skin/Wound/Dressing Care Report to your healthcare provider any signs of infection, such as:: chills, fever, increased pain and unusual drainage Visit Report/Discharge Packet Instructions: DI for Cystoscopy, DI for Prescription Opioid Use, DI for Ureteral Stent Placement Stand Alone Forms: Patient Portal/API, Stroke Signs & Symptoms Discharge Data Primary Care Provider: Valencia Albert
--- NOTE | 2023-12-25 20:04 | PC.NURSE ---
Pt feels ready to d/c to home. Since the stent was placed the intense pain she had this morning is gone. Spouse is at bedside. Discharge packet given and reviewed. RX has been esent. Questions answered. Pt will make her appts tomorrow.
[2024-01-04 11:10] LABS: Ca oxalate dihydrate 100 % (.); Size <1 mm (.)
== END 2023-12-25 18:20 | disposition home or self-care (01) | DRG 566 ==
LOC: ED 13:17 → AC 12-24 08:32
PROVIDERS: Specialist; Admitting Provider Obstetrics & Gynecology; Emergency Provider Emergency Medicine; PCP Nurse Practitioner Family; Referring Provider Emergency Medicine; Visit Provider Obstetrics & Gynecology
PROC: (CPT 52330; principal; 2023-12-25 12:00)
DX: O99.891 Other specified diseases and conditions complicating pregnancy (principal); N13.30 Unspecified hydronephrosis; R31.0 Gross hematuria; O26.893 Other specified pregnancy related conditions, third trimester; J45.909 Unspecified asthma, uncomplicated; Z3A.14 14 weeks gestation of pregnancy; Z87.891 Personal history of nicotine dependence
CPT/HCPCS: 52330; 52332; 36415; 76770; 76815; 80053; 81001; 82365; 83605; 83690; 84145; 85025; 87040; 87086; 96365; 96375; 96376; 99233; 99284; 99285; G0378; J0690; J0696; J1170; J2060; J2270; J2405; J2704; J2765; J3010

== ENCOUNTER → 2023-12-27 14:47 | Outpatient (CLI) | payer OTHER, MEDICAID, SELFPAY ==
[2023-12-23 14:02] VITALS: BMI 42.3
[2023-12-27 16:17] LABS: Appearance Urine UA TURBID; Bilirubin Urine UA NEGATIVE (NEGATIVE); Color Urine UA RED; Glucose Urine UA NEGATIVE (Negative); Ketones Urine UA TRACE (NEGATIVE); Leukocyte Esterase Urine UA 1+ (NEGATIVE); Nitrite Urine UA NEGATIVE (Negative); Occult Blood Urine UA 3+ (Negative); Protein Urine UA 3+ (Negative); Specific Gravity Urine UA 1.025 (1.000-1.035); Urobilinogen Urine UA 0.2 E.U./dL (0.2)
[2023-12-27 16:20] LABS: Bacteria Urine Occasional (0-1); Culture Indicated Urine Specimen Cultured; Mucus Urine 1+ (Negative); RBC Urine >100/HPF (0-5/HPF); Squamous Epithelial Cell Urine 1-5 /HPF (0-5/HPF); Urine Volume 10mL (spun); WBC Urine 1-5/HPF (0-5/HPF)
== END ==
PROVIDERS: PCP Nurse Practitioner Family; Referring Provider Specialist; Visit Provider Specialist
DX: N13.30 Unspecified hydronephrosis (principal); R10.9 Unspecified abdominal pain; R31.0 Gross hematuria; N30.01 Acute cystitis with hematuria
CPT/HCPCS: 81001; 87086

== ENCOUNTER → 2024-01-09 10:35 | Outpatient (CLI) | payer OTHER, MEDICAID, SELFPAY ==
[2023-12-23 14:02] VITALS: BMI 42.3
== END ==
PROVIDERS: PCP Nurse Practitioner Family; Visit Provider Specialist
DX: Z87.440 Personal history of urinary (tract) infections (principal); R31.9 Hematuria, unspecified
CPT/HCPCS: 87086

== ENCOUNTER 2024-01-11 20:34 | Inpatient (IN) | payer OTHER, MEDICAID, SELFPAY ==
[2023-12-23 14:02] VITALS: BMI 42.3
[2024-01-11 20:38] VITALS: BP 122/83; PULSE 79; RESP 16; TEMP 36.4; O2SAT 99; BMI 42.3
[2024-01-11] MEDS: ONDANSETRON 4 MG/2 ML INJ IV (21:04)
[2024-01-11 21:17] LABS: Add Manual Diff / Slide Review NO; Basophils Absolute Auto 200 /uL (0-100); Basophils Percent Auto 0.8 % (0-2); Eosinophils Absolute Auto 600 /uL (0-450); Eosinophils Percent Auto 2.8 % (2-4); Hematocrit 38.2 % (36-46); Hemoglobin 12.8 g/dL (12.0-16.0); Lymphocytes Absolute Auto 4800 /uL (1100-4500); Lymphocytes Percent Auto 21.4 % (25-40); Mean Corpuscular HGB Conc 33.6 % (30-36); Mean Corpuscular Hemoglobin 26.7 PG (26-34); Mean Corpuscular Volume 79.4 fL (80-100); Monocytes Absolute Auto 1000 /uL (0-900); Monocytes Percent Auto 4.5 % (3-14); Neutrophils Absolute Auto 15700 /uL (1500-7000); Neutrophils Percent Auto 70.5 % (50-75); Platelet Count 389 X10^3/uL (150-400); Red Blood Cell Count 4.81 X10^6/uL (4.0-5.2); Red Cell Distribution Width 15.9 % (11.6-14.8); White Blood Cell Count 22.3 X10^3/uL (4.5-11.0)
[2024-01-11 21:21] LABS: Alanine Aminotransferase 22 IU/L (<35); Albumin 4.1 g/dL (3.5-5.0); Albumin Globulin Ratio 1.5 (1.0-2.8); Alkaline Phosphatase 109 U/L (38-126); Aspartate Aminotransferase 23 IU/L (14-36); Bilirubin Total 0.3 mg/dL (0.2-1.3); Blood Urea Nitrogen 11 mg/dL (7-17); Calcium 8.8 mg/dL (8.4-10.2); Carbon Dioxide 21 mmol/L (22-32); Chloride 106 mmol/L (98-107); Estimated Glomerular Filt Rate > 60 mL/min (>60); Globulin 2.8 g/dL (1.7-4.1); Glucose 89 mg/dL (70-100); HEMOLYSIS 16 (0-50); Lipase 87 U/L (23-300); Potassium 3.8 mmol/L (3.4-5.1); Sodium 135 mmol/L (137-145); Total Protein 6.9 g/dL (6.3-8.2)
[2024-01-11 21:47] LABS: Bacteria Urine Many (>30); Culture Indicated Urine Specimen Cultured; RBC Urine 10-30/HPF (0-5/HPF); Squamous Epithelial Cell Urine 10-30 /HPF (0-5/HPF); Urine Volume 10mL (spun); WBC Urine 10-30/HPF (0-5/HPF)
[2024-01-11] MEDS: MORPHINE 4 MG/ML INJ IV (22:02)
--- NOTE | 2024-01-11 22:07 | ED.ABDPAIN ---
HPI - Abdominal Pain General Chief Complaint: Abdominal Pain Stated Complaint: poss rt kidney issues/16 wks preg Time Seen by Provider: 01/11/24 21:42 Source: patient Mode of arrival: Family Vehicle History of Present Illness HPI narrative: 28-year-old female currently , , believes herself to be current gestation 16 weeks 3 days, care through [facility], recent visits for left-sided flank pain and hematuria, urine cultures were negative, course of antibiotics were given, recalls prior ultrasound left kidney showing dilated ureter/kidney, underwent ureteral stenting on 12/25/2023 with subsequent resolution of left flank pain. Her last antibiotic oral dose was finished on 12/26/2023. She was doing better, now complains of other right-sided pain increasing since Sunday now for 5 days, nausea today with multiple nonbloody episodes x5, no loose stools, no diarrhea. No syncope or presyncope symptoms, does not feel weak or dizzy. She has persisting nausea. Her right flank is still hurting. She has not tried any oral or other medications. Related Data Home Medications Medication Instructions Recorded Confirmed vit 122-ferrous fumarate 1 tab PO DAILY 12/23/23 01/12/24 27 mg iron-folic acid 800 mcg tablet ( Multi) oxycodone 5 mg tablet 5 mg PO Q6H PRN pain 01/12/24 01/12/24 Previous Rx's Medication Instructions Recorded albuterol sulfate 90 mcg/actuation 2 puff inhalation Q4-6H PRN 02/11/21 aerosol inhaler shortness of breath or wheezing #8.5 grams amoxicillin 500 mg capsule 500 mg PO TID #21 caps 12/17/23 Allergies Allergy/AdvReac Type Severity Reaction Status Date / Time fluoxetine [From Prozac] AdvReac Severe Agitated Verified 12/23/23 08:59 nitrofurantoin AdvReac Severe Nausea Verified 12/23/23 08:59 [From Macrobid] Patient History Medical History First degree perineal laceration during delivery History of UTI Hydronephrosis, left Left flank pain Ovarian cyst (~2015) Anxiety Depression PCOS (polycystic ovarian syndrome) Bipolar 1 disorder (~2014) Morbid obesity with BMI of 40.0-44.9, adult Asthma Surgical History Anesthesia H/O bilateral breast reduction surgery (~01/2018) Family History Mother Hypertension Mental health problem Brother Mental health problem Brother Mental health problem Sister Mental health problem Grandfather Mental health problem Grandmother Diabetes mellitus Grandfather Skin cancer Diabetes mellitus Grandmother Mental health problem Social History marital status: household members: spouse and children lives independently: Yes occupational status: employed Smoking Status: Former smoker alcohol intake: former Smoking Status: Former smoker alcohol intake frequency: 0-2 drinks per day Substance Use Type: does not use Exam Narrative Exam Narrative: GENERAL: Well-developed patient, in moderate distress due to right flank pain. HEAD: Atraumatic. Normocephalic. EYES: Pupils equal round and reactive. Extraocular motions intact. No scleral icterus. No injection or drainage. ENT: Nose without bleeding, purulent drainage. Throat without erythema, tonsillar hypertrophy or exudate. Airway patent. NECK: Trachea midline. Non tender CARDIOVASCULAR: Regular rate and rhythm without murmurs, gallops, or rubs. RESPIRATORY: Clear to auscultation. Breath sounds equal bilaterally. No wheezes, rales, or rhonchi. GASTROINTESTINAL: Obese, abdomen soft, non-tender, nondistended. Some CVAT right none on the left EXTREMITIES: No edema or joint tenderness. BACK: Nontender without deformity or crepitance. No flank tenderness. NEURO: AOx3. SKIN: No rash or erythema of visible areas Initial Vital Signs Initial Vital Signs: Vital Signs Temperature 97.6 F 01/11/24 20:38 Pulse Rate 79 01/11/24 20:38 Respiratory Rate 16 01/11/24 20:38 Blood Pressure 122/83 01/11/24 20:38 Pulse Oximetry 99 01/11/24 20:38 Oxygen Delivery Method Room Air 01/11/24 20:38 Course Orders Ordered: ED Orders 01/11/24 21:00 Complete Blood Count AUTO DIFF Stat Comprehensive Metabolic Panel Stat Lipase Stat 01/11/24 21:25 Urine Culture Stat Urine Microscopic Stat 01/11/24 22:25 Blood Culture Stat 01/11/24 22:39 US renal complete Stat Acetaminophen (Acetaminophen 325 Mg Tablet) 650 mg PO Q6H PRN PRN Reason: Fever/Mild Pain (1-3) Albuterol (Albuterol 2.5 Mg/3 Ml Neb (Adult)) 2.5 mg INH [id number] PRN PRN Reason: Dyspnea Docusate Sodium (Docusate 100 Mg Capsule) 100 mg PO BID JOY Hydralazine HCl (Hydralazine 20 Mg/Ml Vial) 10 mg IV Q6HR PRN PRN Reason: SBP>= 160 or DBP >=110 Sodium Chloride (Normal Saline 0.9%) 1,000 mls @ 100 mls/hr IV CONT JOY Last Admin: 01/12/24 03:14 Dose: 100 mls/hr Documented By: HOUSTON Ceftriaxone Sodium 1,000 mg/ (Sodium Chloride) 100 mls @ 200 mls/hr IV Q24H [facility] Melatonin (Melatonin 3 Mg Tablet) 9 mg PO BEDTIME PRN PRN Reason: insomnia Morphine Sulfate (Morphine 4 Mg/Ml Inj) 3 mg IV Q2HR JOY Last Admin: 01/12/24 05:23 Dose: Not Given Documented By: Admin: 01/12/24 03:19 Dose: 3 mg Documented By: HOUSTON Naloxone HCl (Naloxone 0.4 Mg/Ml Vial) 0.2 mg IV Q2MIN PRN PRN Reason: Opiate Reversal Ondansetron HCl (Ondansetron 4 Mg/2 Ml Inj) 4 mg IV Q8HR PRN PRN Reason: Nausea And Vomiting Last Admin: 01/12/24 03:57 Dose: 4 mg Documented By: HOUSTON Oxycodone HCl (Oxycodone Ir 10 Mg Tablet) 5 mg PO Q3H PRN PRN Reason: Pain, Severe (7-10) Vit/Calcium/Iron/Folic Ac ( Vit,Calc/Iron/Folic 1 Tablet) 1 tab PO DAILY [facility] Discontinued Medications Albuterol (Albuterol Hfa Mdi 60 Puff/8 Gm Inhaler) 2 puff INH Q4-6H PRN PRN Reason: shortness of breath or wheezing Hydromorphone HCl (Hydromorphone 0.5 Mg Inj) 0.5 mg IV NOW ONE Stop: 01/11/24 23:16 Last Admin: 01/11/24 23:31 Dose: 0.5 mg Documented By: ANTONIO Ceftriaxone Sodium 1,000 mg/ (Sodium Chloride) 100 mls @ 200 mls/hr IV NOW ONE Stop: 01/11/24 22:11 Last Infusion: 01/11/24 23:00 Dose: Infused Documented By: Admin: 01/11/24 22:29 Dose: 200 mls/hr Documented By: SEBASTIÁN Sodium Chloride (Normal Saline 0.9%) 1,000 mls @ 1,000 mls/hr IV BOLUS ONE Stop: 01/12/24 01:37 Last Admin: 01/12/24 03:43 Dose: Not Given Documented By: HOUSTON Morphine Sulfate (Morphine 4 Mg/Ml Inj) 4 mg IV NOW ONE Stop: 01/11/24 21:56 Last Admin: 01/11/24 22:02 Dose: 4 mg Documented By: KELBY Ondansetron HCl (Ondansetron 4 Mg Odt) 4 mg PO NOW PRN PRN Reason: Nausea And Vomiting Ondansetron HCl (Ondansetron 4 Mg/2 Ml Inj) 4 mg IV NOW PRN PRN Reason: Nausea And Vomiting Last Admin: 01/11/24 21:04 Dose: 4 mg Documented By: ANTONIO Vital Signs Vital signs: Vital Signs - 8 hr 01/11/24 20:38 Temperature 97.6 F Pulse Rate 79 Respiratory Rate 16 Blood Pressure 122/83 Pulse Oximetry 99 Oxygen Delivery Method Room Air MDM - Abdominal Pain Lab Data Attestation: I reviewed the patient's lab results. 01/11/24 21:00 01/11/24 21:00 Labs: Lab Results 01/11/24 01/11/24 Range/Units 21:00 21:25 WBC 22.3 H (4.5-11.0) X10^3/uL RBC 4.81 (4.0-5.2) X10^6/uL Hgb 12.8 (12.0-16.0) g/dL Hct 38.2 (36-46) % MCV 79.4 L (80-100) fL MCH 26.7 (26-34) PG MCHC 33.6 (30-36) % RDW 15.9 H (11.6-14.8) % Plt Count 389 (150-400) X10^3/uL Neut % (Auto) 70.5 (50-75) % Lymph % (Auto) 21.4 L (25-40) % Phillips % (Auto) 4.5 (3-14) % Eos % (Auto) 2.8 (2-4) % Baso % (Auto) 0.8 (0-2) % Neut # (Auto) 08130 H (5221-3747) /uL Lymph # (Auto) 4800 H (2467-7831) /uL Phillips # (Auto) 1000 H (0-900) /uL Eos # (Auto) 600 H (0-450) /uL Baso # (Auto) 200 H (0-100) /uL Sodium 135 L (137-145) mmol/L Potassium 3.8 (3.4-5.1) mmol/L Chloride 106 (98-107) mmol/L Carbon Dioxide 21 L (22-32) mmol/L BUN 11 (7-17) mg/dL Creatinine 0.58 (0.52-1.04) mg/dL Estimated GFR > 60 (>60) mL/min BUN/Creatinine Ratio 19.0 (6-22) Glucose 89 (70-100) mg/dL Calcium 8.8 (8.4-10.2) mg/dL Total Bilirubin 0.3 (0.2-1.3) mg/dL AST 23 (14-36) IU/L ALT 22 (<35) IU/L Alkaline Phosphatase 109 (38-126) U/L Total Protein 6.9 (6.3-8.2) g/dL Albumin 4.1 (3.5-5.0) g/dL Globulin 2.8 (1.7-4.1) g/dL Albumin/Globulin Ratio 1.5 (1.0-2.8) Triglycerides 188 H (35-150) mg/dL Cholesterol 294 H (140-199) mg/dL LDL Cholesterol, Calc 156 H (<100) mg/dL HDL Cholesterol 100 H (40-60) mg/dL Lipase 87 (23-300) U/L Urine RBC 10-30/hpf H (0-5/HPF) Urine WBC 10-30/hpf H (0-5/HPF) Ur Squamous Epith Cells 10-30 /hpf H D (0-5/HPF) Urine Bacteria Many (>30) H (None) Ur Culture Indicated? Specimen cultured Vol Urine Centrifuged 10ml (spun) Point of care testing: Urine Dip Bedside Urine Glucose Negative Bedside Urine Bilirubin - Negative Bedside Urine Ketone - Negative Urine Specific [place] 1.015 Bedside Urine Occult Blood +++ Bedside Urine pH 6.0 Bedside Urine Protein +/- 15 Bedside Urine Urobilinogen - Negative Bedside Urine Nitrite - Negative Bedside Urine Leukocytes +++ 500 Esterase Imaging Data US - abdomen: Radiologist's Impression: [address] [address] Ultrasound Report Signed Patient: Ann Camarillo MR#: [id number] : 1995 Acct:[id number] Age/Sex: 28 / F Date of Service: 01/11/24 Loc: ED Accession Number: [id number] Procedure: US renal complete Ordering Provider: Milton Renteria MD PROCEDURE: US RENAL COMPLETE INDICATIONS: LEFT URETERAL STENT; NEW RT FLANK PAIN TECHNIQUE: Real-time scanning was performed of the kidneys and bladder, with image documentation. COMPARISON: [facility], US, US RENAL COMPLETE, 12/23/2023, 9:51. FINDINGS: Kidneys: Kidneys are normal in size. Right kidney measures 10.6 cm long; left kidney measures 11.5 cm long. Right renal cortical thickness is 1.7 cm; left renal cortical thickness is 2.1 cm. Renal cortical echotexture is normal. No hydronephrosis or nephrolithiasis. No suspicious solid mass lesions. Bladder: Pre-void bladder volume is 119 mL. Post-void residual is 0 mL. Pre-void images demonstrate no intraluminal masses or stones. The right ureteral jet is seen. Left ureteral jet is not seen. Stent within the left bladder. Miscellaneous: No free pelvic fluid. heart rate 131 bpm. IMPRESSION: 1. No hydronephrosis. Left ureteral stent. 2. No postvoid residual. 3. heart rate 131 bpm. Dictated by: Gallo Lowe M.D. on 01/12/2024 at 1:08 Approved by: Gallo Lowe M.D. on 01/12/2024 at 1:10 MDM Narrative Medical decision making narrative: Current 16-17 weeks gestation, status post left-sided ureteral stenting on 12/25/23, urine cultures were negative, completed course of oral antibiotics on 12/26/23, now with 4 days duration increasing right-sided opposite side pain. Nausea and nonbloody emesis. No vaginal bleeding. White blood cell count 65649, lactate normal, urinalysis shows pyuria and hematuria with bacteriuria, urine culture requested, blood cultures sent, IV ceftriaxone antibiotic given. Ultrasound kidneys requested, also ultrasound of current . Ultrasound both kidneys, left-sided ureteral stent seen in the bladder windows, no hydronephrosis on that side, right side however has moderate hydro nephrosis and hydroureter. Live Tapia IUP on limited transabdominal view of . Case discussed with urology on-call, [facility] Dr. Moon, agrees with need for transfer for ureteral stenting, no local other bed alternatives known (from recent attempts to transfer alternate patient), he can consult through [facility] or [facility]. We will contact [facility] intake, to see if perinatology would be the accepting service, or hospitalist service, to coordinate consultation with Urology and possible right-sided ureteral stenting. 0030, discussed with intake 0115, renal ultrasound reported, see dictation radiologist, there is no hydronephrosis mentioned, left ureteral stent is noted. But there is no mention of right-sided hydronephrosis. This might preclude need for transfer for right-sided ureteral stenting. Consider admission here with hospitalist/obstetrics consulting, for treatment of right-sided pyelonephritis 0120, discussed with Obstetrics on-call here Dr. Calle, agrees with admission here he can consult, no urgent need for ureteral stenting based on radiologist over read of the ultrasound, no hydronephrosis mentioned. He requests admit to hospitalist Service, he will consult 0145, case discussed with Dr. [place] hospitalist, who requests update consult with urology for admission here, we will update [facility] urologist Dr. Moon regarding the normal ultrasound right-sided kidney, no hydronephrosis, anticipate admission here 0150, case discussed again with Dr. Moon Urology [facility] on-call, agrees with treatment appear, he can consult if needed. Hospitalist Dr Adler accepts patient for admission Critical Care Time Critical Care Time Critical Care Time: Yes Total Critical Care Time: 60 Attestation: The high probability of a clinically significant, sudden or life threatening deterioration of the [obstetric, renal, urologic] system(s) required my full and direct attention, intervention and personal management. The aggregate critical care time was [60] minutes. This time is in addition to time spent performing reported procedures but includes the following: [x] Data Review and interpretation [x] Patient assessment and monitoring of vital signs [x] Documentation x Medication orders and management Discharge Plan Departure Patient Disposition: [facility] Clinical Impression: Acute right flank pain, Hydroureter on right, 14-20 weeks gestation of , Urinary tract infection
[2024-01-11] MEDS: cefTRIAXone 1,000 MG in SODIUM CHLORIDE 0.9% 100 ML 200 MG IV (22:29)
--- NOTE | 2024-01-11 22:39 | DI.US.S_ITS ---
PROCEDURE: US RENAL COMPLETE INDICATIONS: LEFT URETERAL STENT; NEW RT FLANK PAIN TECHNIQUE: Real-time scanning was performed of the kidneys and bladder, with image documentation. COMPARISON: [facility], , RENAL COMPLETE, 12/23/2023, 9:51. FINDINGS: Kidneys: Kidneys are normal in size. Right kidney measures 10.6 cm long; left kidney measures 11.5 cm long. Right renal cortical thickness is 1.7 cm; left renal cortical thickness is 2.1 cm. Renal cortical echotexture is normal. No hydronephrosis or nephrolithiasis. No suspicious solid mass lesions. Bladder: Pre-void bladder volume is 119 mL. Post-void residual is 0 mL. Pre-void images demonstrate no intraluminal masses or stones. The right ureteral jet is seen. Left ureteral jet is not seen. Stent within the left bladder. Miscellaneous: No free pelvic fluid. heart rate 131 bpm. IMPRESSION: 1. No hydronephrosis. Left ureteral stent. 2. No postvoid residual. 3. heart rate 131 bpm. Dictated by: Gallo Lowe M.D. on 01/12/2024 at 1:08 Approved by: Gallo Lowe M.D. on 01/12/2024 at 1:10
[2024-01-11] MEDS: HYDROMORPHONE 0.5 MG INJ IV (23:31)
--- NOTE | 2024-01-12 02:44 | PC.NURSE ---
Pt report given to Emi STARK #[id number].
[2024-01-12 02:47] VITALS: BP 96/55; PULSE 88; RESP 16; O2SAT 97
[2024-01-12 02:50] VITALS: BMI 42.3
[2024-01-12 02:55] VITALS: BP 123/66; PULSE 87; RESP 18; TEMP 36; O2SAT 100
[2024-01-12 02:56] LABS: Cholesterol 294 mg/dL (140-199); HDL Cholesterol 100 mg/dL (40-60); LDL Cholesterol Calculated 156 mg/dL (<100); Triglycerides 188 mg/dL (35-150)
[2024-01-12] MEDS: SODIUM CHLORIDE 0.9% 1,000 ML 100 ML IV ×3 (03:14→22:11)
[2024-01-12] MEDS: MORPHINE 4 MG/ML INJ 3 MG IV ×3 (03:19→22:25)
[2024-01-12] MEDS: ONDANSETRON 4 MG/2 ML INJ IV ×3 (03:57→22:11)
--- NOTE | 2024-01-12 04:04 | PC.NURSE ---
0250 Pt. admitted from ER via wheelchair, accopmanied by her spouse Mr. Camarillo. Oriented to her room & encouraged to call for assistance if she needed to get up to the bathroom. Denies any fall for the last 3 months, C/O pain medicated with 3 mg. of IVP Morphine. Reported nausea, 4 mg. Zofran administered. Will continue plan of care & monitor.
--- NOTE | 2024-01-12 04:15 | PM.HP.1 ---
History of Present Illness History of Present Illness Chief complaint: poss rt kidney issues/16 wks preg Narrative: 28 years old female currently , gestation 16 weeks, presented to the ER with right-sided flank pain and hematuria since Sunday along with nausea and vomiting. The patient had similar symptoms with left flank pain when she was diagnosed kidney stone with hydronephrosis and underwent ureteral stent on 12/25/2023. She also had course of antibiotics at that time. Today she is coming with similar symptoms including the right flank pain, feeling weak, dizzy, nausea and vomiting. Denies any fever, shortness of breath chest pain. In the ER she had abdominal ultrasound which shows no hydronephrosis and left ureteral stent. Case discussed with Dr. Moon urologist metal fabrication supervisor from [facility] and recommended no transfer and manage her with antibiotics in our facility. He will consult if needed. Physical Therapy Assistant on-call Dr. Calle was also notified and agreed to consult for her . Laboratory shows WBC 22.3, creatinine 0.58 and UA shows UTI. She was given ceftriaxone 1 g IV and morphine 4 mg IV in the ED. [facility] Medical History First degree perineal laceration during delivery History of UTI Hydronephrosis, left Left flank pain Ovarian cyst (~2015) Anxiety Depression PCOS (polycystic ovarian syndrome) Bipolar 1 disorder (~2014) Morbid obesity with BMI of 40.0-44.9, adult Asthma Surgical History Anesthesia H/O bilateral breast reduction surgery (~01/2018) Family History Mother Hypertension Mental health problem Brother Mental health problem Brother Mental health problem Sister Mental health problem Grandfather Mental health problem Grandmother Diabetes mellitus Grandfather Skin cancer Diabetes mellitus Grandmother Mental health problem Social History marital status: household members: spouse and children lives independently: Yes occupational status: employed Smoking Status: Former smoker alcohol intake: former Meds Home Medications and Allergies Home Medications Medication Instructions Recorded Confirmed Type albuterol sulfate 90 mcg/actuation 2 puff inhalation Q4-6H PRN 02/11/21 01/12/24 Rx aerosol inhaler shortness of breath or wheezing #8.5 grams amoxicillin 500 mg capsule 500 mg PO TID #21 caps 12/17/23 01/12/24 Rx vit 122-ferrous fumarate 1 tab PO DAILY 12/23/23 01/12/24 History 27 mg iron-folic acid 800 mcg tablet ( Multi) oxycodone 5 mg tablet 5 mg PO Q6H PRN pain 01/12/24 01/12/24 History Allergies Allergy/AdvReac Type Severity Reaction Status Date / Time fluoxetine [From Prozac] AdvReac Severe Agitated Verified 12/23/23 08:59 nitrofurantoin AdvReac Severe Nausea Verified 12/23/23 08:59 [From Macrobid] Review of Systems Review of Systems ROS: Yes All systems reviewed with the patient and are negative except as otherwise documented Constitutional Constitutional: Reports as per HPI and Reports system reviewed and no additional complaints, except as documented Eyes Eyes: Reports as per HPI and Reports system reviewed and no additional complaints, except as documented ENT Ears, Nose, Mouth, and Throat: Yes as per HPI and Yes system reviewed and no additional complaints, except as documented Cardiovascular Cardiovascular: Reports system reviewed and no additional complaints, except as documented Respiratory Respiratory: Reports system reviewed and no additional complaints, except as documented Gastrointestinal Gastrointestinal: Reports system reviewed and no additional complaints, except as documented Genitourinary Genitourinary: Reports system reviewed and no additional complaints, except as documented Musculoskeletal Musculoskeletal: Reports system reviewed and no additional complaints, except as documented, Reports abnormal gait and Reports numbness Neurologic Neurologic: Reports system reviewed and no additional complaints, except as documented, Reports abnormal gait, Reports confusion and Reports numbness Psychiatric Psychiatric: Reports system reviewed and no additional complaints, except as documented and Reports confusion Exam Vital Signs (past 8 hours): - 01/11/24 20:38 01/12/24 02:47 01/12/24 02:55 Temperature 97.6 F 96.8 F L Pulse Rate 79 88 87 Respiratory Rate 16 16 18 Blood Pressure 122/83 96/55 L 123/66 Pulse Oximetry 99 97 100 Oxygen Delivery Method Room Air Room Air Oxygen Flow Rate 0 Oxygen Delivery Method Room Air Oxygen Flow Rate 0 Const General: cooperative, comfortable and well developed Orientation: alert and oriented x3 HENMT Head: normal to inspection, normocephalic and atraumatic Face and sinus: normal facial exam Mouth: oral mucosae normal and moist mucous membranes Throat: posterior oropharynx normal Eyes General: appearance normal, both eyes and all related structures Pupils: PERRL EOM: EOM intact bilaterally Neck Neck: normal visual inspection and full ROM Chest Chest: normal inspection of the chest Resp Effort & Inspection: normal respiratory effort and able to speak in complete sentences Auscultation: clear to auscultation bilaterally Cardio Palpation: normal PMI Rate: regular rate Rhythm: regular rhythm Heart Sounds: S1 normal and S2 normal GI Inspection: normal to inspection Palpation: soft and no hepatosplenomegaly Auscultation: normal bowel sounds Skin General: no rashes or lesions noted Lesions: no lesions Rashes: no rashes Trauma: no lacerations or abrasions Neuro General: patient alert, patient awake, patient oriented x3 and no focal motor deficits Cranial Nerves: CN's II-XI intact bilaterally Cognition: normal cognition Speech: speech normal Gait: normal gait Motor: muscle tone normal throughout Sensory Exam: no sensory deficits noted Extrem General: full ROM and no calf tenderness Psych Appearance: grossly normal Mental Status: mental status grossly normal Speech and Movement: speech and movement normal Objective Labs 01/11/24 21:00 01/11/24 21:00 Labs: Laboratory Results - last 24 hr 01/11/24 01/11/24 21:00 21:25 WBC 22.3 H RBC 4.81 Hgb 12.8 Hct 38.2 MCV 79.4 L MCH 26.7 MCHC 33.6 RDW 15.9 H Plt Count 389 Neut % (Auto) 70.5 Lymph % (Auto) 21.4 L H[place] % (Auto) 4.5 Eos % (Auto) 2.8 Baso % (Auto) 0.8 Neut # (Auto) 23043 H Lymph # (Auto) 4800 H Houghton # (Auto) 1000 H Eos # (Auto) 600 H Baso # (Auto) 200 H Sodium 135 L Potassium 3.8 Chloride 106 Carbon Dioxide 21 L BUN 11 Creatinine 0.58 Estimated GFR > 60 BUN/Creatinine Ratio 19.0 Glucose 89 Calcium 8.8 Total Bilirubin 0.3 AST 23 ALT 22 Alkaline Phosphatase 109 Total Protein 6.9 Albumin 4.1 Globulin 2.8 Albumin/Globulin Ratio 1.5 Triglycerides 188 H Cholesterol 294 H LDL Cholesterol, Calc 156 H HDL Cholesterol 100 H Lipase 87 Urine RBC 10-30/hpf H Urine WBC 10-30/hpf H Ur Squamous Epith Cells 10-30 /hpf H D Urine Bacteria Many (>30) H Ur Culture Indicated? Specimen cultured Vol Urine Centrifuged 10ml (spun) Assessment & Plan Assessment & Plan narrative: Acute pyelonephritis without any hydronephrosis. Meets the criteria for sepsis. -IV fluids -Pain medications, Tylenol for fever and antiemetics as needed -Blood culture, urine culture, -Antibiotics, ceftriaxone, -Monitor for urine retention, check post void residuals. -Urology consult for follow-up 16-week . -[employer] consult. -Restart vitamins. Asthma. Albuterol as needed Time Spent With Patient Time with patient: 50 to 69 minutes with 50% spent counseling/coordinating care Quality VTE Deep Vein Thrombosis/Pulmonary Embolism Present on Admission: No MIPS - Admit I confirm the patient?s Advance Care Plan is present, Code status is documented, Surrogate decision maker is in patient?s record [If Yes, STOP here]: Yes MIPS - Meds 'Current medications' to include all prescriptions, [id number] products, herbals, cannabis/cannabidiol products, and vitamin/mineral/dietary (nutritional) supplements. I have utilized all available resources to obtain, update, or review the patient?s current medications. [If Yes, STOP here]: Yes
--- NOTE | 2024-01-12 04:20 | PC.NURSE ---
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 seen patient to check heart rate reported HR. 130 & feels lots of movement.
[2024-01-12] MEDS: DOCUSATE 100 MG CAPSULE PO ×2 (08:31→20:42)
[2024-01-12] MEDS: PRENATAL VIT,CALC/IRON/FOLIC 1 TABLET 1 TAB PO (08:32)
[2024-01-12 11:56] LABS: Add Manual Diff / Slide Review NO; Basophils Absolute Auto 100 /uL (0-100); Basophils Percent Auto 0.7 % (0-2); Eosinophils Absolute Auto 500 /uL (0-450); Eosinophils Percent Auto 3.3 % (2-4); Hemoglobin 12.1 g/dL (12.0-16.0); Lymphocytes Absolute Auto 3400 /uL (1100-4500); Lymphocytes Percent Auto 24.3 % (25-40); Mean Corpuscular HGB Conc 33.5 % (30-36); Mean Corpuscular Hemoglobin 27.1 PG (26-34); Mean Corpuscular Volume 80.8 fL (80-100); Monocytes Absolute Auto 600 /uL (0-900); Monocytes Percent Auto 4.7 % (3-14); Neutrophils Absolute Auto 9300 /uL (1500-7000); Platelet Count 334 X10^3/uL (150-400); Red Blood Cell Count 4.46 X10^6/uL (4.0-5.2); Red Cell Distribution Width 15.8 % (11.6-14.8); White Blood Cell Count 13.8 X10^3/uL (4.5-11.0)
[2024-01-12 12:00] VITALS: BP 102/55; PULSE 73; RESP 12; TEMP 36.2; O2SAT 100
[2024-01-12 12:07] LABS: BUN Creatinine Ratio 13.1 (6-22); Blood Urea Nitrogen 8 mg/dL (7-17); Calcium 8.4 mg/dL (8.4-10.2); Carbon Dioxide 26 mmol/L (22-32); Chloride 108 mmol/L (98-107); Estimated Glomerular Filt Rate > 60 mL/min (>60); Glucose 75 mg/dL (70-100); HEMOLYSIS < 15 (0-50); Potassium 3.9 mmol/L (3.4-5.1); Sodium 137 mmol/L (137-145)
[2024-01-12 12:23] LABS: Procalcitonin 0.055 ng/mL (<0.5)
--- NOTE | 2024-01-12 13:04 | CM.DANOTE ---
Initial DCP Assessment Visit Note Reviewed EMR and team rounds for status updates. Met with pt at bedside to introduce self and role, pt was found to be awake/oriented, and able to discuss her needs/preferences for d/c back home once medically cleared. Pt lives independently with her spouse and small dtr in a [id number] apartment above her parents' house. Her mother is taking care of her dtr while pt is in the hospital. No anticipated home d/c needs identified at this time. Payor: Ashish Granados PCP: Valencia Albert Pt is a 28 year-old F readmitted due to R-sided flank pain for over 5-days. Her recent hospitalization in November was for a stent placement due to L-sided kidney infection and a course of antibiotics. Pt was found to have a R-sided kidney infection in the ED last evening, and was admitted with a plan for 48-hours of IV ABO's. Blood and urine cultures remain pending at this time. Pt is expressing feeling comfortable, and the center RN came up to the room and checked baby's heart rate, which is healthy and normal, lots of movement noted. DCP will continue to monitor and assist with any further evolving home d/c needs during this stay. Discharge Planning/Care Management Advanced directive, confirm from FAMILY Start: 01/12/24 03:37 Freq: Q24H Status: Active Protocol: Document 01/12/24 03:37 MP (Rec: 01/12/24 04:14 MP [id number]) Advance Directive, confirm on record Time 03:37 Person contacted Pt. Copy received No CM Discharge Assessment Start: 01/12/24 12:38 Freq: Status: Active Protocol: Document 01/12/24 12:38 DPL (Rec: 01/12/24 13:04 DPL [id number]) Discharge Planning Assessment Assigned Tank Operator ARIANA Li Advance Directives? No Advance Directives on File No History Provided By Patient,Medical Record Has Patient been admitted in last 30 Yes days? Comment Admitted 12/16-12/25/23 for L- sided kidney infection and stent placement. Prior Living Arrangements House Household Members spouse,children Type of transporation used prior to Drives own vehicle admit Independent with ADL's Yes Is patient alert and oriented? Yes Comment No anticipated d/c needs identified at this time. Barriers to Discharge No Discharge Plan Home Transportation Arrangement Likely spouse to transport at d/c Referrals Initiated None needed Review Status In Process Please Provide Date Initial DC 01/12/24 Assessment Was Performed
--- NOTE | 2024-01-12 13:59 | PM.HP.1 ---
History of Present Illness History of Present Illness Date Patient Seen: 01/12/24 Time Patient Seen: 13:59 Chief complaint: poss rt kidney issues/16 wks preg Narrative: 28 F approx 16 weeks with recent left ureteral stenting (possible pyelo?) for presumed nephrolithiasis who presented yesterday with worsening R flank pain and nausea. She had been given a week of amoxicillin on 12/16, but presented with worsening L flank pain a week later. She had stent placed with mild hydronephrosis noted on ultrasound and there was presumed to be a kidney stone at the time as the cause of her symptoms. She completed the remaining 2 days of amoxicillin at that time. Represented to urology clinic a few days ago with R flank pain, repeat UA grew multiple bacteria presumed contamination / not suitable for growth. This was similar to her prior culture as well from 12/16. Imaging this time of her R flank showed no R hydronephrosis. She was given ceftriaxone for presumed pyelonephritis, OB service requested admission to medicine service. heart rate was 131 on check by L&D. Patient feels much improved this morning, pain now at a 3/10, WBC has improved to 13.8 from on presentation. [facility] Medical History First degree perineal laceration during delivery History of UTI Hydronephrosis, left Left flank pain Ovarian cyst (~2015) Anxiety Depression PCOS (polycystic ovarian syndrome) Bipolar 1 disorder (~2014) Morbid obesity with BMI of 40.0-44.9, adult Asthma Surgical History Anesthesia H/O bilateral breast reduction surgery (~01/2018) Family History Mother Hypertension Mental health problem Brother Mental health problem Brother Mental health problem Sister Mental health problem Grandfather Mental health problem Grandmother Diabetes mellitus Grandfather Skin cancer Diabetes mellitus Grandmother Mental health problem Social History marital status: household members: spouse and children lives independently: Yes occupational status: employed Smoking Status: Former smoker alcohol intake: former Meds Home Medications and Allergies Home Medications Medication Instructions Recorded Confirmed Type albuterol sulfate 90 mcg/actuation 2 puff inhalation Q4-6H PRN 02/11/21 01/12/24 Rx aerosol inhaler shortness of breath or wheezing #8.5 grams amoxicillin 500 mg capsule 500 mg PO TID #21 caps 12/17/23 01/12/24 Rx vit 122-ferrous fumarate 1 tab PO DAILY 12/23/23 01/12/24 History 27 mg iron-folic acid 800 mcg tablet ( Multi) oxycodone 5 mg tablet 5 mg PO Q6H PRN pain 01/12/24 01/12/24 History Allergies Allergy/AdvReac Type Severity Reaction Status Date / Time fluoxetine [From Prozac] AdvReac Severe Agitated Verified 12/23/23 08:59 nitrofurantoin AdvReac Severe Nausea Verified 12/23/23 08:59 [From Macrobid] Review of Systems Review of Systems Narrative: All other systems reviewed with the patient and are negative unless otherwise stated. Exam Vital Signs (past 8 hours): - 01/12/24 12:00 Temperature 97.2 F L Pulse Rate 73 Respiratory Rate 12 Blood Pressure 102/55 L Pulse Oximetry 100 Oxygen Flow Rate 0 Oxygen Delivery Method Room Air Oxygen Flow Rate 0 Narrative Exam Narrative: Gen: WDWN female, no acute distress CV: RRR no m/r/g Pulm: CTA b/l Abd: S mildly tender RMQ, with R flank tenderness, improved. Ext: Trace edema b/l lower extremities. Neuro: No focal deficits, alert and oriented. Objective Labs 01/12/24 11:49 01/12/24 11:49 Labs: Laboratory Results - last 24 hr 01/11/24 01/11/24 01/12/24 21:00 21:25 11:49 WBC 22.3 H 13.8 H RBC 4.81 4.46 Hgb 12.8 12.1 Hct 38.2 36.0 MCV 79.4 L 80.8 MCH 26.7 27.1 MCHC 33.6 33.5 RDW 15.9 H 15.8 H Plt Count 389 334 Neut % (Auto) 70.5 67.0 Lymph % (Auto) 21.4 L 24.3 L Simpson % (Auto) 4.5 4.7 Eos % (Auto) 2.8 3.3 Baso % (Auto) 0.8 0.7 Neut # (Auto) 71234 H 9300 H Lymph # (Auto) 4800 H 3400 Simpson # (Auto) 1000 H 600 Eos # (Auto) 600 H 500 H Baso # (Auto) 200 H 100 Sodium 135 L 137 Potassium 3.8 3.9 Chloride 106 108 H Carbon Dioxide 21 L 26 BUN 11 8 Creatinine 0.58 0.61 Estimated GFR > 60 > 60 BUN/Creatinine Ratio 19.0 13.1 Glucose 89 75 Calcium 8.8 8.4 Total Bilirubin 0.3 AST 23 ALT 22 Alkaline Phosphatase 109 Total Protein 6.9 Albumin 4.1 Globulin 2.8 Albumin/Globulin Ratio 1.5 Triglycerides 188 H Cholesterol 294 H LDL Cholesterol, Calc 156 H HDL Cholesterol 100 H Lipase 87 Procalcitonin 0.055 Urine RBC 10-30/hpf H Urine WBC 10-30/hpf H Ur Squamous Epith Cells 10-30 /hpf H D Urine Bacteria Many (>30) H Ur Culture Indicated? Specimen cultured Vol Urine Centrifuged 10ml (spun) Assessment & Plan Assessment & Plan narrative: Acute pyelonephritis, R kidney, sepsis ruled out - sofa score of <2. - continue ceftriaxone 1g q24 hr. Follow up cultures. - given 48-72 hours of IV antibiotics recommended. - discharge on oral cephalosporin should cultures again come back as contaminated or mixed harry. - monitor leukocytosis and procalcitonin. 16-week . -CUT OFF SAW SET UP OPERATOR appreciated, FHR checks per their service. -Restart vitamins. Asthma. Albuterol as needed Code: Full per patient I have utilized all available immediate resources to obtain, update, or review the patient's current medications. Dispo: patient admitted under inpatient status. Discharge home possibly as soon as tomorrow evening if doing well. Additional history obtained via discussions with the overnight provider. These discussions contributed to the creation of the above assessment and plan. I have reviewed patient's presenting documentation, labs, and imaging personally. Time Spent With Patient Time with patient: 50 to 69 minutes with 50% spent counseling/coordinating care Quality VTE Deep Vein Thrombosis/Pulmonary Embolism Present on Admission: No
[2024-01-12] MEDS: ACETAMINOPHEN 325 MG TABLET 650 MG PO ×2 (15:49→22:18)
--- NOTE | 2024-01-12 15:54 | PC.NURSE ---
Pt Resting @ intervals throught out day. Med at 0900 w/ MS IVP, however declined med every 2 hrs. Med at 1555 w/ tylenol; will asses. IVF NS @ 100 infusing as per orders. Call light w/in reach, pt calls appropriately for needs. Continue w/plan of care.
[2024-01-12 18:00] VITALS: BP 108/68; PULSE 75; RESP 12; TEMP 35.9; O2SAT 99
[2024-01-12] MEDS: cefTRIAXone 1,000 MG in SODIUM CHLORIDE 0.9% 100 ML 200 MG IV (20:42)
--- NOTE | 2024-01-12 20:49 | PC.NURSE ---
Pt received 1 gram of ceftriaxone, 2 gram taken out of the pixis. this nurse was unable to scan AB however pt did received the right dose from this nurse.
[2024-01-13] VITALS: BP 124/69; PULSE 74; RESP 16; TEMP 36.2; O2SAT 100
[2024-01-13] MEDS: MORPHINE 4 MG/ML INJ 3 MG IV ×2 (00:30→05:41)
[2024-01-13 05:45] LABS: Add Manual Diff / Slide Review NO; Basophils Absolute Auto 100 /uL (0-100); Basophils Percent Auto 0.8 % (0-2); Eosinophils Absolute Auto 500 /uL (0-450); Eosinophils Percent Auto 4.1 % (2-4); Hematocrit 31.9 % (36-46); Hemoglobin 10.7 g/dL (12.0-16.0); Lymphocytes Absolute Auto 3700 /uL (1100-4500); Lymphocytes Percent Auto 29.8 % (25-40); Mean Corpuscular HGB Conc 33.5 % (30-36); Mean Corpuscular Hemoglobin 27.1 PG (26-34); Mean Corpuscular Volume 80.8 fL (80-100); Monocytes Absolute Auto 600 /uL (0-900); Monocytes Percent Auto 5.2 % (3-14); Neutrophils Absolute Auto 7500 /uL (1500-7000); Neutrophils Percent Auto 60.1 % (50-75); Platelet Count 272 X10^3/uL (150-400); Red Blood Cell Count 3.94 X10^6/uL (4.0-5.2); Red Cell Distribution Width 15.8 % (11.6-14.8); White Blood Cell Count 12.4 X10^3/uL (4.5-11.0)
[2024-01-13 06:00] VITALS: BP 103/64; PULSE 62; RESP 16; TEMP 36.1; O2SAT 97
[2024-01-13 06:16] LABS: Alanine Aminotransferase 14 IU/L (<35); Albumin Globulin Ratio 1.2 (1.0-2.8); Alkaline Phosphatase 83 U/L (38-126); Aspartate Aminotransferase 15 IU/L (14-36); BUN Creatinine Ratio 16.1 (6-22); Bilirubin Total 0.2 mg/dL (0.2-1.3); Blood Urea Nitrogen 9 mg/dL (7-17); Calcium 8.1 mg/dL (8.4-10.2); Carbon Dioxide 23 mmol/L (22-32); Chloride 110 mmol/L (98-107); Estimated Glomerular Filt Rate > 60 mL/min (>60); Globulin 2.5 g/dL (1.7-4.1); Glucose 77 mg/dL (70-100); HEMOLYSIS < 15 (0-50); Magnesium 1.8 mg/dL (1.6-2.3); Potassium 3.8 mmol/L (3.4-5.1); Sodium 135 mmol/L (137-145); Total Protein 5.5 g/dL (6.3-8.2)
[2024-01-13] MEDS: ONDANSETRON 4 MG/2 ML INJ IV (06:16)
[2024-01-13 06:18] LABS: Procalcitonin 0.034 ng/mL (<0.5)
[2024-01-13 08:00] VITALS: BP 154/85; PULSE 87; RESP 16; TEMP 36.1; O2SAT 99
[2024-01-13] MEDS: ACETAMINOPHEN 325 MG TABLET 650 MG PO ×2 (08:02→14:22)
[2024-01-13] MEDS: PRENATAL VIT,CALC/IRON/FOLIC 1 TABLET 1 TAB PO (08:02)
[2024-01-13] MEDS: DOCUSATE 100 MG CAPSULE PO (08:02)
[2024-01-13] MEDS: SODIUM CHLORIDE 0.9% 1,000 ML 100 ML IV (08:03)
--- NOTE | 2024-01-13 12:08 | PM.DS.1 ---
History of Present Illness History of Present Illness Date Patient Seen: 01/13/24 Chief complaint: poss rt kidney issues/16 wks preg Narrative: 28 F approx 16 weeks with recent left ureteral stenting (possible pyelo?) for presumed nephrolithiasis who presented yesterday with worsening R flank pain and nausea. She had been given a week of amoxicillin on 12/16, but presented with worsening L flank pain a week later. She had stent placed with mild hydronephrosis noted on ultrasound and there was presumed to be a kidney stone at the time as the cause of her symptoms. She completed the remaining 2 days of amoxicillin at that time. Represented to urology clinic a few days ago with R flank pain, repeat UA grew multiple bacteria presumed contamination / not suitable for growth. This was similar to her prior culture as well from 12/16. Imaging this time of her R flank showed no R hydronephrosis. She was given ceftriaxone for presumed pyelonephritis, OB service requested admission to medicine service. heart rate was 131 on check by L&D. Patient feels much improved this morning, pain now at a 3/10, WBC has improved to 13.8 from on presentation. Discharge Providers Provider Date of admission: 01/12/24 02:00 Discharge Date: 01/13/24 Primary care physician: Valencia Albert [facility]- Discharge provider: Juancarlos Rowe DO Summary Hospital Course Discharge Diagnosis: Acute pyelonephritis, R kidney, sepsis ruled out 16-week . Asthma. Hospital Course: 28 year old female with recent left nephrolithiasis with stent placement, 16 w presented with right flank pain. UA positive, but culture with mixed gram positive harry, consistent with multiple prior cultures. Patient had marked leukocytosis, improved quickly with improved R flank pain after initiation of ceftriaxone for presumed pyelonephritis. Urology did not recommend repeat stenting at this time, as imaging showed no hydronephrosis or stones. After 3 doses of IV antibiotics (72 hours total IV therapy) patient was feeling much improved and discharged home on oral cefdinir to complete 14 day total course of antibiotic therapy for pyelonephritis in . Time Spent with Patient Time spent: Greater than 30 minutes Exam Vital Signs (past 8 hours): - 01/13/24 06:00 01/13/24 08:00 Temperature 97 F L 97.0 F L Pulse Rate 62 87 Respiratory Rate 16 16 Blood Pressure 103/64 154/85 H Pulse Oximetry 97 99 Oxygen Flow Rate 0 Oxygen Delivery Method Room Air Oxygen Flow Rate 0 Narrative Exam Narrative: Gen: WDWN female, no acute distress CV: RRR no m/r/g Pulm: CTA b/l Abd: S mildly tender RMQ, with R flank tenderness, improved. Ext: Trace edema b/l lower extremities. Neuro: No focal deficits, alert and oriented. Objective Labs 01/13/24 05:29 01/13/24 05:29 Labs: Laboratory Results - last 24 hr 01/12/24 01/13/24 11:49 05:29 WBC 12.4 H RBC 3.94 L Hgb 10.7 L Hct 31.9 L MCV 80.8 MCH 27.1 MCHC 33.5 RDW 15.8 H Plt Count 272 Neut % (Auto) 60.1 Lymph % (Auto) 29.8 Bibb % (Auto) 5.2 Eos % (Auto) 4.1 H Baso % (Auto) 0.8 Neut # (Auto) 7500 H Lymph # (Auto) 3700 Bibb # (Auto) 600 Eos # (Auto) 500 H Baso # (Auto) 100 Sodium 137 135 L Potassium 3.9 3.8 Chloride 108 H 110 H Carbon Dioxide 26 23 BUN 8 9 Creatinine 0.61 0.56 Estimated GFR > 60 > 60 BUN/Creatinine Ratio 13.1 16.1 Glucose 75 77 Calcium 8.4 8.1 L Magnesium 1.8 Total Bilirubin 0.2 AST 15 ALT 14 Alkaline Phosphatase 83 Total Protein 5.5 L Albumin 3.0 L Globulin 2.5 Albumin/Globulin Ratio 1.2 Procalcitonin 0.055 0.034 COUNTS INCLUDE 234 BEDS AT THE [facility] Medical History First degree perineal laceration during delivery History of UTI Hydronephrosis, left Left flank pain Ovarian cyst (~2015) Anxiety Depression PCOS (polycystic ovarian syndrome) Bipolar 1 disorder (~2014) Morbid obesity with BMI of 40.0-44.9, adult Asthma Surgical History Anesthesia H/O bilateral breast reduction surgery (~01/2018) Family History Mother Hypertension Mental health problem Brother Mental health problem Brother Mental health problem Sister Mental health problem Grandfather Mental health problem Grandmother Diabetes mellitus Grandfather Skin cancer Diabetes mellitus Grandmother Mental health problem Social History marital status: household members: spouse and children lives independently: Yes occupational status: employed Smoking Status: Former smoker alcohol intake: former Discharge Plan Discharge Plan Patient Disposition: Home Provider Discharge Comment: You were admitted to the hospital with presumed pyelonephritis of your R kidney. Possible kidney stone or possible muscle spasm as well. Try to continue tyelnol only, but stronger pain medication or muscle relaxant can be taken but limit use as much as possible. Discharge orders & Medications Prescriptions: New cefdinir 300 mg capsule 300 mg PO BID 11 Days Qty: 22 0RF cyclobenzaprine 5 mg tablet 5 mg PO TID PRN (Reason: muscle spasm) 10 Days Qty: 20 0RF Continued albuterol sulfate 90 mcg/actuation HFA aerosol inhaler 2 puff inhalation Q4-6H PRN (Reason: shortness of breath or wheezing) Qty: 8.5 2RF Multi 27-800 mg-mcg Tablet 1 tab PO DAILY oxycodone 5 mg tablet 5 mg PO Q6H PRN (Reason: pain) Qty: 10 0RF Discontinued amoxicillin 500 mg capsule 500 mg PO TID Qty: 21 0RF Follow up/Referrals: Valencia Albert FNP- [Primary Care Provider] - Diet/Activity/Treatments Diet: Diet as Tolerated and Regular Activity: As tolerated, no restrictions Visit Report/Discharge Packet Stand Alone Forms: Patient Portal/API, Stroke Signs & Symptoms Discharge Data Primary Care Provider: Valencia Albert Quality VTE Deep Vein Thrombosis/Pulmonary Embolism Present on Admission: No
--- NOTE | 2024-01-13 12:28 | CM.DPC ---
DCP Discharge Home Per MD, pt started on new medication to see if it helps relieve her musculoskeletal pain and RN encouraging pt to ambulate today and pt to have one more dose of IV-Abx this evening (a little earlier than scheduled) for plan of discharge home later tonight on PO meds. No identified barriers or concerns at this time. ARIANA Woods
[2024-01-13] MEDS: CYCLOBENZAPRINE 10 MG TABLET 5 MG PO (16:13)
[2024-01-13 17:00] VITALS: BP 126/79; PULSE 80; RESP 16; TEMP 36.2; O2SAT 100
[2024-01-13] MEDS: cefTRIAXone 1,000 MG in SODIUM CHLORIDE 0.9% 100 ML 200 MG IV (17:05)
--- NOTE | 2024-01-13 17:42 | PC.NURSE ---
Pt is ready to be discharged home with Spouse and daughter. IV will be removed. Went over d/c instructions with Pt and Spouse-discussed d/c meds, time of last dose, reviewed stroke education, reminded Pt to take full course of abx as prescribed and to drink plenty of fluids to prevent constipation or dehydration. Pt to follow up as directed. Pt and Spouse denied further questions and Pt will be taken out via w/c by ELECTRICAL TESTS SUPERVISOR to POV with Spouse, daughter and all belongings.
== END 2024-01-13 18:30 | disposition home or self-care (01) | DRG 566 ==
LOC: ED 01-12 00:02 → AC 01-12 02:01
PROVIDERS: Internal Medicine; Admitting Provider Internal Medicine; Emergency Provider Emergency Medicine; PCP Nurse Practitioner Family; Referring Provider Emergency Medicine; Visit Provider Internal Medicine
DX: O23.02 Infections of kidney in pregnancy, second trimester (principal); O26.892 Other specified pregnancy related conditions, second trimester; J45.909 Unspecified asthma, uncomplicated; Z87.891 Personal history of nicotine dependence; Z3A.16 16 weeks gestation of pregnancy
CPT/HCPCS: 36415; 76770; 80048; 80053; 80061; 81003; 81015; 83690; 83735; 84145; 85025; 87040; 87086; 96365; 96375; 99284; 99291; J0696; J1170; J2270; J2405

== ENCOUNTER 2024-01-20 10:10 | Emergency (ER) | payer OTHER, MEDICAID, SELFPAY ==
[2024-01-20] VITALS (11 sets, daily range): BP systolic 115–130; BP diastolic 69–88; PULSE 76–98; RESP 18; TEMP 36.9; O2SAT 94–98; BMI 42.3
--- NOTE | 2024-01-20 10:18 | DI.US.S_ITS ---
PROCEDURE: US OB LIMITED INDICATIONS: bleeding and clots OUTSIDE/PRIOR DATING DATA: Last menstrual period (LMP): 09/19/2023. LMP-based estimated date of delivery (SILVIO): 06/25/2024. First dating scan (date and location): 12/17/2023. Estimated date of delivery (SILVIO) from first dating scan: 06/20/2024. The calculations are made using the clinical SILVIO of 06/24/2024. TECHNIQUE: Real-time scanning was performed of the fetus, with image documentation. Endovaginal scanning: Performed. COMPARISON: [facility], OB LIMITED, 12/23/2023, 9:39. FINDINGS: A single living intrauterine gestation is present. Presentation: Transverse, head to maternal left. Placenta: Placental position is posterior. Low lying 0.9 cm from the internal cervical os. The placental edge appears upturned. Amniotic fluid index: 14.9 cm, normal range is 5-24 cm. Single deepest vertical pocket is 4.7 cm. heart rate: 140 beats per minute. Maternal cervical canal: 4.9 cm long. Normal lower limit is 2.5 cm. Closed. No funneling. Clinically estimated gestational age: 17 weeks 5 days IMPRESSION: 1. [place]ia living intrauterine at 17 weeks 5 days based on prior dating. 2. Low lying placenta 0.9 cm from the internal cervical os. Hypoechoic retroplacental tissue is again seen. The placental edge has an upturned appearance. Retroplacental hematoma/placental abruption is a diagnostic consideration. However, this appears similar compared to the prior ultrasound 12/23/2023. 3. Cervix is closed. 4. Amniotic fluid is normal. Recommend anatomic survey ultrasound at 20 weeks. An intervening a pelvic ultrasound may be helpful if clinically indicated. Comment: Findings were discussed with Milton Renteria at 12:43 p.m. Dictated by: Gallo Lowe M.D. on 01/20/2024 at 12:31 Approved by: Gallo Lowe M.D. on 01/20/2024 at 12:46
[2024-01-20 10:53] LABS: Add Manual Diff / Slide Review NO; Basophils Absolute Auto 100 /uL (0-100); Basophils Percent Auto 0.7 % (0-2); Eosinophils Absolute Auto 300 /uL (0-450); Eosinophils Percent Auto 1.7 % (2-4); Hematocrit 36.9 % (36-46); Hemoglobin 12.4 g/dL (12.0-16.0); Lymphocytes Absolute Auto 3100 /uL (1100-4500); Lymphocytes Percent Auto 17.7 % (25-40); Mean Corpuscular HGB Conc 33.5 % (30-36); Mean Corpuscular Volume 80.6 fL (80-100); Monocytes Absolute Auto 500 /uL (0-900); Monocytes Percent Auto 2.8 % (3-14); Neutrophils Absolute Auto 13500 /uL (1500-7000); Neutrophils Percent Auto 77.1 % (50-75); Platelet Count 343 X10^3/uL (150-400); Red Blood Cell Count 4.58 X10^6/uL (4.0-5.2); Red Cell Distribution Width 15.7 % (11.6-14.8); White Blood Cell Count 17.6 X10^3/uL (4.5-11.0)
[2024-01-20 10:58] LABS: Alanine Aminotransferase 15 IU/L (<35); Albumin Globulin Ratio 1.3 (1.0-2.8); Alkaline Phosphatase 101 U/L (38-126); Aspartate Aminotransferase 20 IU/L (14-36); BUN Creatinine Ratio 12.5 (6-22); Bilirubin Total 0.3 mg/dL (0.2-1.3); Blood Urea Nitrogen 8 mg/dL (7-17); Calcium 8.8 mg/dL (8.4-10.2); Carbon Dioxide 21 mmol/L (22-32); Chloride 108 mmol/L (98-107); Estimated Glomerular Filt Rate > 60 mL/min (>60); Glucose 88 mg/dL (70-100); HEMOLYSIS < 15 (0-50); Sodium 136 mmol/L (137-145)
[2024-01-20 11:00] LABS: Appearance Urine UA CLOUDY; Color Urine UA RED; Glucose Urine UA NEGATIVE (Negative); Ketones Urine UA TRACE (NEGATIVE); Protein Urine UA 3+ (Negative); pH Urine UA 5.5 (4.5-8.0)
[2024-01-20 11:01] LABS: Bacteria Urine None Seen; Bilirubin Urine UA Negative (NEGATIVE); Leukocyte Esterase Urine UA 1+ (NEGATIVE); Nitrite Urine UA NEGATIVE (Negative); Occult Blood Urine UA 3+ (Negative); RBC Urine >100/HPF (0-5/HPF); Squamous Epithelial Cell Urine None Seen (0-5/HPF); Urine Volume 10mL (spun); Urobilinogen Urine UA 0.2 E.U./dL (0.2); WBC Urine 1-5/HPF (0-5/HPF)
[2024-01-20 11:02] LABS: Culture Indicated Urine Specimen Cultured
[2024-01-20 11:15] LABS: HCG Quantitative /Beta subunit 10033 mIU/mL
--- NOTE | 2024-01-20 12:41 | ED.FEMALEGU ---
HPI - Female Genitourinary General Chief complaint: OB/Uterine Contractions Stated complaint: 18wk preg, cramping, bleeding Time Seen by Provider: 01/20/24 12:41 Source: patient Mode of arrival: Family Vehicle History of Present Illness HPI Narrative: 28-year-old at 18 weeks' gestation, [facility], next visit due February, had lower abdominal cramping without vaginal bleeding or gush of fluid yesterday, yesterday had intercourse with her , no other trauma or new activities. No fevers or chills. Recent dysuria, taking Cefdinir antibiotic for UTI. Related Data Home Medications Medication Instructions Recorded Confirmed vit 122-ferrous fumarate 1 tab PO DAILY 12/23/23 01/12/24 27 mg iron-folic acid 800 mcg tablet ( Multi) Previous Rx's Medication Instructions Recorded albuterol sulfate 90 mcg/actuation 2 puff inhalation Q4-6H PRN 02/11/21 aerosol inhaler shortness of breath or wheezing #8.5 grams cefdinir 300 mg capsule 300 mg PO BID 11 days #22 caps 01/13/24 cyclobenzaprine 5 mg tablet 5 mg PO TID PRN muscle spasm 10 01/13/24 days #20 tabs oxycodone 5 mg tablet 5 mg PO Q6H PRN pain #10 tabs 01/13/24 Allergies Allergy/AdvReac Type Severity Reaction Status Date / Time fluoxetine [From Prozac] AdvReac Severe Agitated Verified 01/20/24 10:28 nitrofurantoin AdvReac Severe Nausea Verified 01/20/24 10:28 [From Macrobid] Review of Systems Review of Systems Narrative: as per HPI Patient History Medical History First degree perineal laceration during delivery History of UTI Hydronephrosis, left Left flank pain Ovarian cyst (~2015) Anxiety Depression PCOS (polycystic ovarian syndrome) Bipolar 1 disorder (~2014) Morbid obesity with BMI of 40.0-44.9, adult Asthma Surgical History Anesthesia H/O bilateral breast reduction surgery (~01/2018) Family History Mother Hypertension Mental health problem Brother Mental health problem Brother Mental health problem Sister Mental health problem Grandfather Mental health problem Grandmother Diabetes mellitus Grandfather Skin cancer Diabetes mellitus Grandmother Mental health problem tobacco type: cigarettes alcohol intake frequency: 0-2 drinks per day Substance Use Type: does not use Exam Initial Vital Signs Initial Vital Signs: Vital Signs Temperature 98.5 F 01/20/24 10:14 Pulse Rate 98 H 01/20/24 10:14 Respiratory Rate 18 01/20/24 10:14 Blood Pressure 127/88 01/20/24 10:14 Pulse Oximetry 98 01/20/24 10:14 Oxygen Delivery Method Room Air 01/20/24 10:14 Course Orders Ordered: Discontinued Medications Nitrofurantoin Macrocrystals (Nitrofurantoin Er 100 Mg Capsule) 100 mg PO NOW ONE Stop: 01/20/24 13:54 Last Admin: 01/20/24 14:09 Dose: Not Given Documented By: DEB Vital Signs Vital signs: Vital Signs - 8 hr 01/20/24 10:14 01/20/24 10:38 01/20/24 10:39 Temperature 98.5 F Pulse Rate 98 H 91 H 90 Respiratory Rate 18 Blood Pressure 127/88 Pulse Oximetry 98 97 97 Oxygen Delivery Method Room Air 01/20/24 10:39 01/20/24 11:43 01/20/24 11:44 Temperature Pulse Rate 82 82 Respiratory Rate Blood Pressure 115/71 Pulse Oximetry 94 98 Oxygen Delivery Method 01/20/24 11:44 01/20/24 12:00 01/20/24 12:30 Temperature Pulse Rate 83 83 Respiratory Rate Blood Pressure 123/69 Pulse Oximetry 98 97 Oxygen Delivery Method 01/20/24 13:00 Temperature Pulse Rate 87 Respiratory Rate Blood Pressure Pulse Oximetry 98 Oxygen Delivery Method MDM - Female Genitourinary Lab Data Attestation: I reviewed the patient's lab results. 01/20/24 10:39 01/20/24 10:39 Labs: Lab Results 01/20/24 01/20/24 Range/Units 10:32 10:39 WBC 17.6 H (4.5-11.0) X10^3/uL RBC 4.58 (4.0-5.2) X10^6/uL Hgb 12.4 (12.0-16.0) g/dL Hct 36.9 (36-46) % MCV 80.6 (80-100) fL MCH 27.0 (26-34) PG MCHC 33.5 (30-36) % RDW 15.7 H (11.6-14.8) % Plt Count 343 (150-400) X10^3/uL Neut % (Auto) 77.1 H (50-75) % Lymph % (Auto) 17.7 L (25-40) % [place] % (Auto) 2.8 L (3-14) % Eos % (Auto) 1.7 L (2-4) % Baso % (Auto) 0.7 (0-2) % Neut # (Auto) 78618 H (2461-5102) /uL Lymph # (Auto) 3100 (4166-8432) /uL [place] # (Auto) 500 (0-900) /uL Eos # (Auto) 300 (0-450) /uL Baso # (Auto) 100 (0-100) /uL Sodium 136 L (137-145) mmol/L Potassium 4.0 (3.4-5.1) mmol/L Chloride 108 H (98-107) mmol/L Carbon Dioxide 21 L (22-32) mmol/L BUN 8 (7-17) mg/dL Creatinine 0.64 (0.52-1.04) mg/dL Estimated GFR > 60 (>60) mL/min BUN/Creatinine Ratio 12.5 (6-22) Glucose 88 (70-100) mg/dL Calcium 8.8 (8.4-10.2) mg/dL Total Bilirubin 0.3 (0.2-1.3) mg/dL AST 20 (14-36) IU/L ALT 15 (<35) IU/L Alkaline Phosphatase 101 (38-126) U/L Total Protein 7.0 (6.3-8.2) g/dL Albumin 4.0 (3.5-5.0) g/dL Globulin 3.0 (1.7-4.1) g/dL Albumin/Globulin Ratio 1.3 (1.0-2.8) HCG, Quant 85607 mIU/mL Urine Color Red Urine Appearance Cloudy Urine pH 5.5 (4.5-8.0) Ur Specific [place] 1.030 (1.000-1.035) Urine Protein 3+ H (Negative) Urine Glucose (UA) Negative (Negative) g/dL Urine Ketones Trace H (NEGATIVE) Urine Occult Blood 3+ H (Negative) Urine Nitrate Negative (Negative) Urine Bilirubin Negative (NEGATIVE) Urine Urobilinogen 0.2 (0.2) E.U./dL Ur Leukocyte Esterase 1+ H (NEGATIVE) Urine RBC >100/hpf H (0-5/HPF) Urine WBC 1-5/hpf (0-5/HPF) Ur Squamous Epith Cells None seen D (0-5/HPF) Urine Bacteria None seen (None) Ur Culture Indicated? Specimen cultured Vol Urine Centrifuged 10ml (spun) Blood Type O Positive Antibody Screen Negative Imaging Data US - OB: Radiologist's Impression: [address] [id number] Ultrasound Report Signed Patient: Ann Camarillo MR#: [id number] : 1995 Acct:[id number] Age/Sex: 28 / F Date of Service: 01/20/24 Loc: ED Accession Number: [id number] Procedure: US OB limited Ordering Provider: Milton Renteria MD PROCEDURE: US OB LIMITED INDICATIONS: bleeding and clots OUTSIDE/PRIOR DATING DATA: Last menstrual period (LMP): 09/19/2023. LMP-based estimated date of delivery (SILVIO): 06/25/2024. First dating scan (date and location): 12/17/2023. Estimated date of delivery (SILVIO) from first dating scan: 06/20/2024. The calculations are made using the clinical SILVIO of 06/24/2024. TECHNIQUE: Real-time scanning was performed of the fetus, with image documentation. Endovaginal scanning: Performed. COMPARISON: [facility], US OB LIMITED, 12/23/2023, 9:39. FINDINGS: A single living intrauterine gestation is present. Presentation: Transverse, head to maternal left. Placenta: Placental position is posterior. Low lying 0.9 cm from the internal cervical os. The placental edge appears upturned. Amniotic fluid index: 14.9 cm, normal range is 5-24 cm. Single deepest vertical pocket is 4.7 cm. heart rate: 140 beats per minute. Maternal cervical canal: 4.9 cm long. Normal lower limit is 2.5 cm. Closed. No funneling. Clinically estimated gestational age: 17 weeks 5 days IMPRESSION: 1. [place] living intrauterine at 17 weeks 5 days based on prior dating. 2. Low lying placenta 0.9 cm from the internal cervical os. Hypoechoic retroplacental tissue is again seen. The placental edge has an upturned appearance. Retroplacental hematoma/placental abruption is a diagnostic consideration. However, this appears similar compared to the prior ultrasound 12/23/2023. 3. Cervix is closed. 4. Amniotic fluid is normal. Recommend anatomic survey ultrasound at 20 weeks. An intervening a pelvic ultrasound may be helpful if clinically indicated. Comment: Findings were discussed with Milton Renteria at 12:43 p.m. Dictated by: Gallo Lowe M.D. on 01/20/2024 at 12:31 Approved by: Gallo Lowe M.D. on 01/20/2024 at 12:46 MDM Narrative Medical decision making narrative: 28-year-old at 18 weeks' gestation with crampy abdominal pain after intercourse with her , denies any recent vaginal bleeding. Ultrasound pelvis requested. Verbal sono tech report IUP live, 17 weeks 2 days' gestation, SHADE of 14.9, heart rate 140, believes there to be some inferior placental lakes, that looked similar in appearance to study on 12/23/2023, no change, cervix appears closed, with cervical length 4.9 cm reported. No free fluid in the pelvis. No abnormal adnexal masses. Call back from Radiology, who had concerns about placental edge that appeared slightly hypoechoic, looking similar to previous study, up turn placental edge of unclear significance, could represent abruption but it is unchanged in appearance from prior study. Case discussed with black mill operator Dr. Martins on-call, agrees with discharge home, pelvic rest, follow up with her care providers, suggest a call office on Sunday to see if it can be moved up, return precautions discussed UA shows presence of blood, no vaginal bleeding, urine culture requested. Continue Cefdinir, followup with your ObGyn provider 2 days Discharge Plan Departure Patient Disposition: Home Clinical Impression: Abdominal cramping, , Urinary tract infection Activity Restrictions/Additional Instructions: Current 18 weeks gestation, crampy abdominal pain, recent intercourse, no vaginal bleeding symptoms. Urinalysis showed blood, in the presence of vaginal bleeding this might not be significant, however no reported vaginal bleeding, continue taking your cefdinir antibiotic for the full course. Ultrasound showed intrauterine 17 weeks 2 days size, pereira, with normal heart rate, some up turning like change in the low-lying placenta, was of concern radiology, could consider abruption of the placenta, however it is unchanged in appearance from last month, unclear significance. Case discussed with Dr. Martins on-call for Obstetrics, advises pelvic rest, follow up with your OB providers, possibly on Sunday to check symptoms and also urine culture results. Return to this/nearest emergency department for any change worsening symptoms or any concerns prior Prescriptions: No Action albuterol sulfate 90 mcg/actuation HFA aerosol inhaler 2 puff inhalation Q4-6H PRN (Reason: shortness of breath or wheezing) Qty: 8.5 2RF Multi 27-800 mg-mcg Tablet 1 tab PO DAILY cefdinir 300 mg capsule 300 mg PO BID 11 Days Qty: 22 0RF cyclobenzaprine 5 mg tablet 5 mg PO TID PRN (Reason: muscle spasm) 10 Days Qty: 20 0RF oxycodone 5 mg tablet 5 mg PO Q6H PRN (Reason: pain) Qty: 10 0RF Referrals: Valencia Albert, ANJUM-BC [Primary Care Provider] - Stand Alone Forms: Patient Portal/API
== END 2024-01-20 14:15 | disposition home or self-care (01) ==
PROVIDERS: Emergency Provider Emergency Medicine; PCP Nurse Practitioner Family
DX: O23.42 Unspecified infection of urinary tract in pregnancy, second trimester (principal); O26.892 Other specified pregnancy related conditions, second trimester; N39.0 Urinary tract infection, site not specified; R10.9 Unspecified abdominal pain; Z3A.18 18 weeks gestation of pregnancy
CPT/HCPCS: 36415; 76815; 76817; 80053; 81001; 84702; 85025; 86850; 86900; 86901; 87086; 99283; 99284

== ENCOUNTER → 2024-03-06 06:49 | Outpatient (CLI) | payer OTHER, MEDICAID, SELFPAY ==
--- NOTE | 2024-03-06 06:50 | DI.US.S_ITS ---
PROCEDURE: US RENAL COMPLETE INDICATIONS: Kidney stone TECHNIQUE: Real-time scanning was performed of the kidneys and bladder, with image documentation. COMPARISON: [facility], , US RENAL COMPLETE, 01/11/2024, 23:31. FINDINGS: Kidneys: Kidneys are normal in size. Right kidney measures 10.4 cm long; left kidney measures 10.4 cm long. Right renal cortical thickness is 0.0 cm; left renal cortical thickness is 1.2 cm. Renal cortical echotexture is normal. No hydronephrosis or nephrolithiasis. No suspicious solid mass lesions. Bladder: Pre-void bladder volume is 58 mL. Post-void residual is 1 mL. Pre-void images demonstrate no intraluminal masses or stones. Left ureteral stent is not as well visualized. On pre-void images, bilateral ureteral jets are noted with color Doppler interrogation. (Of note, ureteral jets may not be detectable in up to 25% of cases due to insufficient differences in specific gravity between ureteral and bladder urine). Miscellaneous: No free pelvic fluid. heart rate of 137 beats per minute. IMPRESSION: 1. No hydronephrosis. No renal stones. 2. Left ureteral stent is not as well visualized as prior. 3. heart rate of 137 beats per minute. Dictated by: Burton Gomez M.D. on 03/06/2024 at 8:59 Approved by: Burton Gomez M.D. on 03/06/2024 at 9:01
== END ==
PROVIDERS: PCP Nurse Practitioner Family; Referring Provider Specialist; Visit Provider Specialist
DX: O99.891 Other specified diseases and conditions complicating pregnancy (principal); N13.30 Unspecified hydronephrosis; R31.0 Gross hematuria; R10.9 Unspecified abdominal pain; Z96.0 Presence of urogenital implants; Z87.440 Personal history of urinary (tract) infections
CPT/HCPCS: 76770

== ENCOUNTER → 2024-03-13 11:31 | Outpatient (CLI) | payer OTHER, MEDICAID, SELFPAY | PROVIDERS: PCP Nurse Practitioner Family; Visit Provider Specialist | DX: Z96.0 Presence of urogenital implants (principal); N39.0 Urinary tract infection, site not specified; R31.9 Hematuria, unspecified | CPT/HCPCS: 87086 ==

== ENCOUNTER → 2024-03-24 08:44 | Outpatient (CLI) | payer OTHER, MEDICAID, SELFPAY ==
--- NOTE | 2024-03-24 08:45 | DI.US.S_ITS ---
PROCEDURE: US RENAL COMPLETE INDICATIONS: 10 DAYS POST LT URETERAL STENT REMOVAL TECHNIQUE: Real-time scanning was performed of the kidneys and bladder, with image documentation. COMPARISON: [facility], , US RENAL COMPLETE, 03/06/2024, 7:01. FINDINGS: Kidneys: Kidneys are normal in size. Right kidney measures 11.2 cm long; left kidney measures 12.5 cm long. Right renal cortical thickness is 2.2 cm; left renal cortical thickness is 1.9 cm. Renal cortical echotexture is normal. Mild right-sided hydronephrosis. No left-sided hydronephrosis. No suspicious solid mass lesions. Bladder: Pre-void bladder volume is 90 mL. Post-void residual is 0 mL. Pre-void images demonstrate no intraluminal masses or stones. On pre-void images, both ureteral jets are noted with color Doppler interrogation. (Of note, ureteral jets may not be detectable in up to 25% of cases due to insufficient differences in specific gravity between ureteral and bladder urine). Miscellaneous: No free pelvic fluid. IMPRESSION: New mild right-sided hydronephrosis. No left-sided hydronephrosis. Dictated by: Lane Hinds M.D. on 03/24/2024 at 16:32 Approved by: Lane Hinds M.D. on 03/24/2024 at 16:33
== END ==
PROVIDERS: PCP Nurse Practitioner Family; Referring Provider Specialist; Visit Provider Specialist
DX: N39.0 Urinary tract infection, site not specified (principal); N13.30 Unspecified hydronephrosis; Z96.0 Presence of urogenital implants
CPT/HCPCS: 76770

== ENCOUNTER → 2024-04-04 11:29 | Outpatient (CLI) | payer OTHER, MEDICAID, SELFPAY | PROVIDERS: PCP Nurse Practitioner Family; Visit Provider Urology | DX: Z87.59 Personal history of other complications of pregnancy, childbirth and the puerperium (principal); Z87.442 Personal history of urinary calculi | CPT/HCPCS: 82365 ==

== ENCOUNTER 2024-04-12 17:53 | Observation (INO) | payer OTHER, MEDICAID, SELFPAY ==
[2024-04-12 18:33] LABS: Appearance Urine UA CLEAR; Bilirubin Urine UA NEGATIVE (NEGATIVE); Color Urine UA YELLOW; Glucose Urine UA NEGATIVE (Negative); Ketones Urine UA NEGATIVE (NEGATIVE); Leukocyte Esterase Urine UA NEGATIVE (NEGATIVE); Nitrite Urine UA NEGATIVE (Negative); Occult Blood Urine UA NEGATIVE (Negative); Protein Urine UA NEGATIVE (Negative); Urobilinogen Urine UA 0.2 E.U./dL (0.2)
[2024-04-12 18:41] LABS: Bacteria Urine None Seen; Culture Indicated Urine Cult Not Indicated; RBC Urine None Seen (0-5/HPF); Squamous Epithelial Cell Urine 0-1 /HPF (0-5/HPF); Urine Volume 10mL (spun); WBC Urine None Seen (0-5/HPF)
--- NOTE | 2024-04-12 18:52 | P.TNLD_ITS ---
Visit Information Visit Information Date of evaluation: 04/12/24 Primary OB Provider: Gloria Bowman On-call OB Provider: Gloria Bowman Reason for Evaluation: Yes non-stress test non-stress test reason: decreased movement Comments/Additional reasons for admission: 29YO here for evalaution of decreased FM. Has been feleing weak and fatigued all week, trying to hydrate well, but thinks she's fighting off an illness. Has not felt as much FM as she usually does all day today. Denies urinary sx. Feels occasional, mild cramping, but not worried about a kidney stone or contractions. No vaginal bleeding or leaking of fluid. Vital Signs Vital Signs: BP 127/82, HR 92bpm, T 35.7C Temporal PFSH Medical History Retained ureteral stent First degree perineal laceration during delivery History of UTI Hydronephrosis, left Left flank pain Ovarian cyst (~2015) Anxiety Depression PCOS (polycystic ovarian syndrome) Bipolar 1 disorder (~2014) Morbid obesity with BMI of 40.0-44.9, adult Asthma Surgical History Anesthesia H/O bilateral breast reduction surgery (~01/2018) Family History Mother Hypertension Mental health problem Brother Mental health problem Brother Mental health problem Sister Mental health problem Grandfather Mental health problem Grandmother Diabetes mellitus Grandfather Skin cancer Diabetes mellitus Grandmother Mental health problem Social History marital status: household members: spouse and children lives independently: Yes occupational status: employed Smoking Status: Former smoker alcohol intake: former Exam Vital Signs (past 8 hours): see above Resp Effort & Inspection: normal respiratory effort and able to speak in complete sentences Auscultation: clear to auscultation bilaterally Cardio Rate: regular rate Rhythm: regular rhythm Objective Labs 04/12/24 18:55 Labs: Laboratory Results - last 24 hr 04/12/24 18:25 Urine Color Yellow Urine Appearance Clear Urine pH 6.0 Ur Specific [place] 1.020 Urine Protein Negative Urine Glucose (UA) Negative Urine Ketones Negative Urine Occult Blood Negative Urine Nitrate Negative Urine Bilirubin Negative Urine Urobilinogen 0.2 Ur Leukocyte Esterase Negative Urine RBC None seen Urine WBC None seen Ur Squamous Epith Cells 0-1 /hpf Urine Bacteria None seen Ur Culture Indicated? Cult not indicated Vol Urine Centrifuged 10ml (spun) Evaluation Evaluation Baseline heart rate: 130 Variability: Moderate (11-25) monitor accelerations: Present Monitor Decelerations: Absent Comments: CE not indicated Diagnosis, Plan/Disposition Final Diagnosis (1) Decreased movement affecting management of in third trimester: Status: Acute Problem details: Reassuring NST for EGA Plan/Disposition Plan: discharge to home with routine precautions. Close follow-up in clinic scheduled for 04/15/24. OB Disposition: home
[2024-04-12 19:09] LABS: Add Manual Diff / Slide Review NO; Basophils Absolute Auto 100 /uL (0-100); Basophils Percent Auto 0.5 % (0-2); Eosinophils Absolute Auto 500 /uL (0-450); Eosinophils Percent Auto 2.6 % (2-4); Hematocrit 34.5 % (36-46); Hemoglobin 11.1 g/dL (12.0-16.0); Lymphocytes Absolute Auto 3600 /uL (1100-4500); Lymphocytes Percent Auto 17.9 % (25-40); Mean Corpuscular HGB Conc 32.2 % (30-36); Mean Corpuscular Hemoglobin 26.1 PG (26-34); Monocytes Absolute Auto 1000 /uL (0-900); Neutrophils Absolute Auto 14800 /uL (1500-7000); Platelet Count 381 X10^3/uL (150-400); Red Blood Cell Count 4.26 X10^6/uL (4.0-5.2); Red Cell Distribution Width 13.6 % (11.6-14.8)
== END 2024-04-12 18:55 | disposition home or self-care (01) ==
LOC: LABOR 17:56
PROVIDERS: Admitting Provider Nurse Practitioner Obstetrics & Gynecology; PCP Nurse Practitioner Family; Referring Provider Nurse Practitioner Obstetrics & Gynecology; Visit Provider Nurse Practitioner Obstetrics & Gynecology
DX: O36.8130 Decreased fetal movements, third trimester, not applicable or unspecified (principal); Z3A.29 29 weeks gestation of pregnancy
CPT/HCPCS: 59025; 81001; 85025; G0378; G0379

== ENCOUNTER → 2024-04-25 07:14 | Outpatient (CLI) | payer OTHER, MEDICAID, SELFPAY ==
--- NOTE | 2024-04-25 | DI.US.S_ITS ---
PROCEDURE: US OB LIMITED INDICATIONS: Supervision of high risk , unspecified, second trim OUTSIDE/PRIOR DATING DATA: Last menstrual period (LMP): 09/19/2023. LMP-based estimated date of delivery (SILVIO): 05/29/2024. First dating scan (date and location): 12/17/2023. Estimated date of delivery (SILVIO) from first dating scan: 06/20/2024. TECHNIQUE: Real-time scanning was performed of the fetus, with image documentation. COMPARISON: [facility], OB LIMITED, 01/20/2024, 11:04. No prior anatomy scan available for review) FINDINGS: A single living intrauterine gestation is present. Presentation: Vertex Placenta: Placental position is posterior, without previa. Amniotic fluid index: 12.2 cm, normal range is 5-24 cm. Single deepest vertical pocket is 5.2 cm. heart rate: 141 beats per minute. Maternal cervical canal: 3.8 cm long. Normal lower limit is 2.5 cm. Estimated gestational age is 31 weeks and 3 days. BPD is 8.3 centimeters, 33 weeks and 3 days Head circumference is 29.6 centimeters, 32 weeks and 5 days Abdominal circumference is 27.7 centimeters, 31 weeks and 6 days Femur length is 6.2 centimeters, 32 weeks and 2 days Composition gestational age today is 32 weeks and 4 days. Estimated weight is at 1916 grams, 63 percent IMPRESSION: Living intrauterine gestation with EFW at the 63rd percentile. SHADE within normal limits Dictated by: Melo Mello M.D. on 04/29/2024 at 10:55 Approved by: Melo Mello M.D. on 04/29/2024 at 10:59
== END ==
PROVIDERS: PCP Nurse Practitioner Family; Referring Provider Advanced Practice Midwife; Visit Provider Advanced Practice Midwife
DX: O09.92 Supervision of high risk pregnancy, unspecified, second trimester (principal); N20.0 Calculus of kidney; Z3A.32 32 weeks gestation of pregnancy
CPT/HCPCS: 76815

== ENCOUNTER 2024-05-21 15:53 | Outpatient (CLI) | payer OTHER, MEDICAID, SELFPAY ==
--- NOTE | 2024-06-03 10:44 | P.TNLD_ITS ---
Visit Information Visit Information Date of evaluation: 05/21/24 Primary OB Provider: Gloria Bowman On-call OB Provider: Brandee Miranda Reason for Evaluation: Yes non-stress test and Yes rupture of membranes Comments/Additional reasons for admission: Ann is a 29 year old with IUP at 35w1d. She texted to report that she is concerned she is leaking fluid since she had a very painful cramp yester day. Has continued to cramp irregularly and felt lots of pressure, like I gotta poop. Unable to time the contractions; has been having them for about a week. Tried to slow down/ease the cramping, and when she stood up, felt a solid amount of liquid come out. Put on a pad because her pants were getting damp, and requests evaluation in triage to be sure her water has not broken. Vital Signs Vital Signs: BP 125/60 HR: 104 bpm Temp: 35.7 C SpO2: 97 % [facility] Medical History Retained ureteral stent First degree perineal laceration during delivery History of UTI Hydronephrosis, left Left flank pain Ovarian cyst (~2015) Anxiety Depression PCOS (polycystic ovarian syndrome) Bipolar 1 disorder (~2014) Morbid obesity with BMI of 40.0-44.9, adult Asthma Surgical History Anesthesia H/O bilateral breast reduction surgery (~01/2018) Family History Mother Hypertension Mental health problem Brother Mental health problem Brother Mental health problem Sister Mental health problem Grandfather Mental health problem Grandmother Diabetes mellitus Grandfather Skin cancer Diabetes mellitus Grandmother Mental health problem Social History marital status: household members: spouse and children lives independently: Yes occupational status: employed Smoking Status: Former smoker alcohol intake: former Review of Systems Review of Systems Narrative: all negative except as mentioned above Exam Vital Signs (past 8 hours): see above Objective Labs Labs: Amnisure negative. Evaluation Evaluation Baseline heart rate: 135 Variability: Moderate (11-25) monitor accelerations: Present Monitor Decelerations: Absent Contraction Frequency (minutes): 0 Category of Tracing: Reactive Non-invasive Membranes Rupture Test: negative Diagnosis, Plan/Disposition Final Diagnosis (1) NST (non-stress test) reactive: Status: Acute (2) Intact amniotic membranes: Status: Acute (3) Supervision of normal in third trimester: Status: Acute Plan/Disposition Plan: Discharge home with precautions. RTC next week for scheduled visit with CNM.
== END 2024-05-21 16:38 | disposition home or self-care (01) ==
LOC: OB 05-26 09:02
PROVIDERS: PCP Nurse Practitioner Family; Referring Provider Nurse Practitioner Obstetrics & Gynecology; Visit Provider Nurse Practitioner Obstetrics & Gynecology
DX: O26.893 Other specified pregnancy related conditions, third trimester (principal); N89.8 Other specified noninflammatory disorders of vagina; Z3A.35 35 weeks gestation of pregnancy
CPT/HCPCS: 59025; 84112; G0378; G0379

== ENCOUNTER 2024-06-11 10:35 | Outpatient (CLI) | payer OTHER, MEDICAID, SELFPAY ==
--- NOTE | 2024-06-11 11:26 | PM.OBTRLD ---
Visit Information Visit Information Date of evaluation: 06/11/24 Primary OB Provider: Gloria Bowman On-call OB Provider: Gloria Bowman Comments/Additional reasons for admission: 29YO @ 38wks 1day by LMP concordant with 10wk US who presents for evaluation of decreased FM and elevated BP in her MH provider's office. Still feeling FM, but it has been less than normal. No cramping, VB or LOF. PN care w/ CNMs. Vital Signs Vital Signs: BP 135/77, 130/74 HR 100 T 35.8C Temporal SpO2 98% [facility] Medical History Retained ureteral stent First degree perineal laceration during delivery History of UTI Hydronephrosis, left Left flank pain Ovarian cyst (~2015) Anxiety Depression PCOS (polycystic ovarian syndrome) Bipolar 1 disorder (~2014) Morbid obesity with BMI of 40.0-44.9, adult Asthma Surgical History Anesthesia H/O bilateral breast reduction surgery (~01/2018) Family History Mother Hypertension Mental health problem Brother Mental health problem Brother Mental health problem Sister Mental health problem Grandfather Mental health problem Grandmother Diabetes mellitus Grandfather Skin cancer Diabetes mellitus Grandmother Mental health problem Social History marital status: household members: spouse and children lives independently: Yes occupational status: employed Smoking Status: Former smoker alcohol intake: former Exam Vital Signs (past 8 hours): see above Presentation: vertex Evaluation Evaluation Baseline heart rate: 150 Variability: Moderate (11-25) monitor accelerations: Present Monitor Decelerations: Absent Category of Tracing: Reactive Diagnosis, Plan/Disposition Final Diagnosis (1) Decreased movement: Status: Acute Plan/Disposition Plan: Reassurance given for status and normotensive BP. Reviewed warning sx and when to call. RTC in 2 days, as previously scheduled. OB Disposition: home
== END 2024-06-11 11:25 | disposition home or self-care (01) ==
LOC: LABOR 11:35 → OB 06-12 09:59
PROVIDERS: PCP Nurse Practitioner Family; Referring Provider Nurse Practitioner Obstetrics & Gynecology; Visit Provider Nurse Practitioner Obstetrics & Gynecology
DX: O36.8130 Decreased fetal movements, third trimester, not applicable or unspecified (principal); R03.0 Elevated blood-pressure reading, without diagnosis of hypertension; O26.893 Other specified pregnancy related conditions, third trimester; Z3A.38 38 weeks gestation of pregnancy
CPT/HCPCS: 59025; G0378; G0379

== ENCOUNTER 2024-06-18 16:31 | Observation (INO) | payer OTHER, MEDICAID, SELFPAY ==
[2024-06-18 17:32] LABS: Add Manual Diff / Slide Review NO; Basophils Absolute Auto 100 /uL (0-100); Basophils Percent Auto 0.5 % (0-2); Eosinophils Absolute Auto 300 /uL (0-450); Eosinophils Percent Auto 1.9 % (2-4); Hematocrit 36.4 % (36-46); Hemoglobin 11.8 g/dL (12.0-16.0); Lymphocytes Absolute Auto 2600 /uL (1100-4500); Lymphocytes Percent Auto 18.2 % (25-40); Mean Corpuscular HGB Conc 32.5 % (30-36); Mean Corpuscular Hemoglobin 25.6 PG (26-34); Mean Corpuscular Volume 78.7 fL (80-100); Monocytes Absolute Auto 700 /uL (0-900); Monocytes Percent Auto 4.8 % (3-14); Neutrophils Absolute Auto 10800 /uL (1500-7000); Neutrophils Percent Auto 74.6 % (50-75); Platelet Count 304 X10^3/uL (150-400); Red Blood Cell Count 4.62 X10^6/uL (4.0-5.2); White Blood Cell Count 14.5 X10^3/uL (4.5-11.0)
[2024-06-18 17:49] LABS: Uric Acid 3.7 mg/dL (2.5-6.2)
[2024-06-18 17:50] LABS: Alanine Aminotransferase 17 IU/L (<35); Albumin 3.7 g/dL (3.5-5.0); Albumin Globulin Ratio 1.4 (1.0-2.8); Alkaline Phosphatase 156 U/L (38-126); Aspartate Aminotransferase 20 IU/L (14-36); BUN Creatinine Ratio 15.9 (6-22); Bilirubin Total 0.3 mg/dL (0.2-1.3); Blood Urea Nitrogen 7 mg/dL (7-17); Calcium 9.3 mg/dL (8.4-10.2); Carbon Dioxide 19 mmol/L (22-32); Chloride 106 mmol/L (98-107); Estimated Glomerular Filt Rate > 60 mL/min (>60); Globulin 2.6 g/dL (1.7-4.1); Glucose 104 mg/dL (70-100); HEMOLYSIS < 15 (0-50); Potassium 3.8 mmol/L (3.4-5.1); Sodium 133 mmol/L (137-145); Total Protein 6.3 g/dL (6.3-8.2)
[2024-06-18 18:08] LABS: Creatinine Urine Random 95.07 mg/dL; Protein (Total) Urine Random 20 mg/dL (0-12); Protein Creatinine Ratio Urine 0.21 GRAM/24H
--- NOTE | 2024-06-18 18:38 | PM.OBTRLD ---
Visit Information Visit Information Date of evaluation: 06/18/24 Primary OB Provider: Brandee Miranda Comments/Additional reasons for admission: Ann was seen in the clinic today for routine care. The first thing she noted is that has been having visual changes most of today. She describes the visual changes as fireworks or floaters in both eyes. She took home BPs today that were normal and as high as 142/100. She was asked to come to L&D for assessment. She had a headache last night that resolved with 1000mg of acetaminophen and rest. She has some discomfort between her eyes at the bridge of her nose that she describes as mild, she is not concerned about and has not taken medication for. She continues to have the mid-sternal chest discomfort that she has had for several weeks now; this pain is not worse today than it has been. She does not have RUQ pain or increased edema. Baby has been moving well. Has not noticed contractions. Is still taking LDASA daily. FORMERLY [facility] Medical History Retained ureteral stent First degree perineal laceration during delivery History of UTI Hydronephrosis, left Left flank pain Ovarian cyst (~2015) Anxiety Depression PCOS (polycystic ovarian syndrome) Bipolar 1 disorder (~2014) Morbid obesity with BMI of 40.0-44.9, adult Asthma Surgical History Anesthesia H/O bilateral breast reduction surgery (~01/2018) Family History Mother Hypertension Mental health problem Brother Mental health problem Brother Mental health problem Sister Mental health problem Grandfather Mental health problem Grandmother Diabetes mellitus Grandfather Skin cancer Diabetes mellitus Grandmother Mental health problem Social History marital status: household members: spouse and children lives independently: Yes occupational status: employed Smoking Status: Former smoker alcohol intake: former Exam Vital Signs (past 8 hours): BP: 114-138/67-87 HR: 98 bpm Temp: 35.7 C SpO2: 97% Resp Effort & Inspection: normal respiratory effort and able to speak in complete sentences Objective Labs 06/18/24 17:15 06/18/24 17:15 Labs: Laboratory Results - last 24 hr 06/18/24 17:15 WBC 14.5 H RBC 4.62 Hgb 11.8 L Hct 36.4 MCV 78.7 L MCH 25.6 L MCHC 32.5 RDW 18.0 H Plt Count 304 Neut % (Auto) 74.6 Lymph % (Auto) 18.2 L [place] % (Auto) 4.8 Eos % (Auto) 1.9 L Baso % (Auto) 0.5 Neut # (Auto) 33265 H Lymph # (Auto) 2600 [place] # (Auto) 700 Eos # (Auto) 300 Baso # (Auto) 100 Sodium 133 L Potassium 3.8 Chloride 106 Carbon Dioxide 19 L BUN 7 Creatinine 0.44 L Estimated GFR > 60 BUN/Creatinine Ratio 15.9 Glucose 104 H Uric Acid 3.7 Calcium 9.3 Total Bilirubin 0.3 AST 20 ALT 17 Alkaline Phosphatase 156 H Total Protein 6.3 Albumin 3.7 Globulin 2.6 Albumin/Globulin Ratio 1.4 U Random Total Protein 20 H Urine Creatinine 95.07 Protein/Creatinin Ratio 0.21 Evaluation Evaluation Baseline heart rate: 135 Variability: Moderate (11-25) monitor accelerations: Present Monitor Decelerations: Absent Contraction Frequency (minutes): 10 (irregular, painless) Category of Tracing: Reactive Cervical dilation (cm): 0 Cervical effacement (%): 80 station: -3 Comments: Cervix soft and mid position. Diagnosis, Plan/Disposition Final Diagnosis (1) Supervision of normal in third trimester: Status: Acute (2) Morbid obesity with BMI of 40.0-44.9, adult: Status: Acute (3) NST (non-stress test) reactive: Status: Acute Plan/Disposition Plan: @ 39w1d Elevated home BP readings, normotensive x 4 hours History of GHTN Consult with Dr. Khanna regarding recommendations and plan of care. She agrees with our plan. I discussed with patient that she does not meet the criteria for pre-eeclampsia or HELP syndrome at this time but it is likely developing. Recommend induction of labor tomorrow since she is 39 weeks. Discharge home.
== END 2024-06-18 20:32 | disposition home or self-care (01) ==
PROVIDERS: Admitting Provider Advanced Practice Midwife; PCP Nurse Practitioner Family; Referring Provider Advanced Practice Midwife; Visit Provider Advanced Practice Midwife
DX: O99.213 Obesity complicating pregnancy, third trimester (principal); E66.01 Morbid (severe) obesity due to excess calories; O26.893 Other specified pregnancy related conditions, third trimester; R03.0 Elevated blood-pressure reading, without diagnosis of hypertension; H53.8 Other visual disturbances; Z3A.39 39 weeks gestation of pregnancy
CPT/HCPCS: 59050; 80053; 82570; 84156; 84550; 85025; G0378; G0379

== ENCOUNTER 2024-06-19 07:17 | Inpatient (IN) | payer OTHER, MEDICAID, SELFPAY ==
--- NOTE | 2024-06-19 08:10 | P.HPOB_ITS ---
OB HPI History of Present Condition Chief complaint: INDUCTION : 2 Para: 1 Estimated Date of Delivery: 06/24/24 Estimated Gestational Age (weeks): 39w2d Narrative: Ann Camarillo is a 29 year old female at 39w2d by LMP and confirmed by 11 week ultrasound and consistent with known conception date. She is here for elective induction complicated by concerns for history of gestational hypertension and recent headache and visual changes. Normal serial BPs x 4 hours and PET panel 06/18/24. Reported elevated BPs at home as high as 142/100 yesterday. Today reports very mild headache due to poor sleep and denies visual changes and epigastric pain. She has not had contractions that are timable, no leaking of fluid, no vaginal bleeding. She has felt good movement. She is in good spirits and is excited to meet her son today. She is well supported by her , Loi. Ann had a complicated by pre- BMI of 42, pyelonephritis with stent placement in late 1st trimester, bipolar stable on medication. She has been seen by [facility] midwives since 10wks per the usual visit course. She was also followed by psychiatrist for continued anxiety, depression and bipolar management throughout her . Indications Indication for induction OB: other (Elective/elevated home BPs ) History of Present care: good care Dating criteria: LMP confirmed by 1st trimester US Ultrasounds: normal 1st trimester US and normal mid trimester US Obstetrical complications: gestational hypertension Preadmission Labs Blood type: O (+) positive -: Antibody screen: negative, Cystic fibrosis screen: negative, GBS status: negative, HBsAG: negative, HIV: negative, HSV 1: negative, HSV 2: negative and RPR/VDLR: negative -: Chlamydia screen: not detected and Gonorrhea screen: not detected -: Rubella: immune and Varicella: immune HCT: 33.4 HCAB: negative PAP: Normal Integrated screen: negative Sequential screen: negative Cell-free DNA: negative Urine: mixed harry, negative for pathologic bacteria 1 hr GTT: 81 Prior (ies) History: x 2021 Evaluation Evaluation Baseline heart rate: 130 Variability: Moderate (11-25) monitor accelerations: Present Monitor Decelerations: Absent Contraction Frequency (minutes): 0 Category of Tracing: Reactive Status: Category l Dilation (cm): 0.5 Effacement (%): 80 Dilation: 1-2 cm Effacement: >/=80% station: -3 Position of cervix: mid Consistency: soft Stone score: 7 PFSH Medical History Retained ureteral stent First degree perineal laceration during delivery History of UTI Hydronephrosis, left Left flank pain Ovarian cyst (~2015) Anxiety Depression PCOS (polycystic ovarian syndrome) Bipolar 1 disorder (~2014) Morbid obesity with BMI of 40.0-44.9, adult Asthma Surgical History Anesthesia H/O bilateral breast reduction surgery (~01/2018) Family History Mother Hypertension Mental health problem Brother Mental health problem Brother Mental health problem Sister Mental health problem Grandfather Mental health problem Grandmother Diabetes mellitus Grandfather Skin cancer Diabetes mellitus Grandmother Mental health problem Social History marital status: household members: spouse and children lives independently: Yes occupational status: employed Smoking Status: Former smoker alcohol intake: former Meds Home Medications and Allergies Home Medications Medication Instructions Recorded Confirmed Type albuterol sulfate 90 mcg/actuation 2 puff inhalation Q4-6H PRN 02/11/21 04/04/24 Rx aerosol inhaler shortness of breath or wheezing #8.5 grams vit 122-ferrous fumarate 1 tab PO DAILY 12/23/23 04/04/24 History 27 mg iron-folic acid 800 mcg tablet ( Multi) aspirin 81 mg tablet,delayed 81 mg PO DAILY 03/06/24 04/04/24 History release lamotrigine 200 mg tablet 200 mg PO DAILY 06/19/24 06/19/24 History Allergies Allergy/AdvReac Type Severity Reaction Status Date / Time fluoxetine [From Prozac] AdvReac Severe Agitated Verified 04/04/24 11:35 nitrofurantoin AdvReac Severe Nausea Verified 04/04/24 11:35 [From Macrobid] Review of Systems Constitutional Constitutional: Reports as per HPI, Reports system reviewed and no additional complaints, except as documented and Reports headache(s) (mild, because I am tired) ENT Ears, Nose, Mouth, and Throat: Yes headache(s) (mild, because I am tired) Cardiovascular Cardiovascular: Reports system reviewed and no additional complaints, except as documented Respiratory Respiratory: Reports as per HPI and Reports system reviewed and no additional complaints, except as documented Neurologic Neurologic: Reports as per HPI, Reports headache(s) (mild, because I am tired) and Reports other (patellar DTR +2, bilaterally) Psychiatric Psychiatric: Reports as per HPI and Reports system reviewed and no additional complaints, except as documented OB Exam Vital signs Blood Pressure: 108/69 Pulse Rate: 115 Respiratory Rate: 18 Temperature: 96.3 F Assessment and Plan Assessment and Plan Assessment and Plan narrative: Assessment: @ 39w2d Elective induction and concern for gestational hypertension No antibiotics indicated. Rhogam not indicated. History of pyelonephritis and stent in first trimester BMI 42 (pre-) Bipolar disorder PCOS Plan: Admit to L&D for induction of labor with pitocin. Usual orders. Cervical exam delayed, presumed similar to exam on 06/18/2024. Discussed methods of induction including mechanical cervical dilation and pitocin. Recommend pitocin which she is agreeable to starting. Continuous monitoring per protocol with Sophie device. Will reassess in 4 hour or PRN sooner. Time-Based Coding :: [TOTAL MINUTES] spent with patient and on the chart (including review of chart, obtaining history, exam, reviewing outside data, placing orders, documenting exam and treatment plan, and counseling patient) on [DATE].
[2024-06-19] MEDS: OXYTOCIN PREMIX 30 UNIT/500 ML PLAST..BAG IV (08:50)
[2024-06-19] MEDS: LACTATED RINGERS 1,000 ML 100 ML IV (08:51)
[2024-06-19 09:24] VITALS: BP 108/69; PULSE 115; RESP 18; TEMP 35.7
[2024-06-19 09:57] VITALS: BP 108/69
--- NOTE | 2024-06-19 14:24 | PM.OBPNLAB ---
Date/Time Date Patient Seen: 06/19/24 Time Patient Seen: 13:30 Pain Control Pain control: tolerating well Comments: Ann continues to tolerate early labor after laying down to rest for a few hours. She ate lunch and continues to hydrate. She is feeling mild but consistent contractions that she successfully philipp with by moving around. She requests to have her cervix checked. After discussing cervical exam with her and next steps, she would like to continue increasing the pitocin to see how labor progress. She is interested in trying hydrotherapy as a comfort measure as labor intensifies. She continues to feel regular movement. Pelvic Exam Dilation (cm): 2 Effacement (%): 70 station: -2 Amniotic membrane status: Intact Contractions Monitor mode: External (Sophie) Pitocin rate (mU/min): 16 Contraction frequency (min): 7 (5-10) Contraction duration (min): 1 (30 sec - 1 min) Contraction pattern: Regular Contraction intensity: Mild Status status: Category l Heart Rate Baseline: 135 Monitor Accelerations: Present Monitor Decelerations: Absent Monitor Variability: Moderate Assessment and Plan Assessment: induction ongoing Plan: begin patient augmentation (Increase pitocin) Comments: A: at 29w2d Elective IOL versus GHTN Early labor GBS neg Rh pos Membranes intact FHR Cat 1 P: Increase pitocin per protocol but stop increasing at 20 mu/min Reassess in 4 hours or PRN
[2024-06-19] MEDS: ONDANSETRON 4 MG/2 ML INJ IV (17:28)
--- NOTE | 2024-06-19 17:52 | PM.OBPNLAB ---
Date/Time Date Patient Seen: 06/19/24 Time Patient Seen: 16:50 Pain Control Pain control: tolerating well Comments: Ann's contractions continue to intensify and she is not out of the tub requesting another cervical exam; starting to think about epidural. Pelvic Exam Dilation (cm): 3 Effacement (%): 85 station: 0 Amniotic membrane status: Intact Contractions Monitor mode: External (Sophie) Pitocin rate (mU/min): 20 Contraction frequency (min): 3 (1-3) Contraction duration (min): 1 (40 seconds) Contraction pattern: Regular Contraction intensity: Mild Status status: Category l Heart Rate Baseline: 140 Monitor Accelerations: Present Monitor Decelerations: Absent Monitor Variability: Moderate Assessment and Plan Assessment: induction ongoing Plan: continuous present management Comments: in early labor IOL for GHTN versus elective FHR Cat 1 Reassured Ann that she can try nitrous oxide, epidural, other forms of pain relief when desired. Anticipate NSVB.
--- NOTE | 2024-06-19 19:04 | PM.OBPNLAB ---
Date/Time Date Patient Seen: 06/19/24 Time Patient Seen: 19:04 Pain Control Pain control: epidural Pelvic Exam Dilation (cm): 5 Effacement (%): 85 station: 0 Amniotic membrane status: Intact Contractions Monitor mode: External (Sophie) Pitocin rate (mU/min): 10 Contraction frequency (min): 3 (1-3) Contraction pattern: Regular Contraction intensity: Mild Status status: Category ll Heart Rate Baseline: 140 Monitor Accelerations: Present Monitor Decelerations: Variable (non-recurrent, not deep) Monitor Variability: Moderate Comments: VS 123/75 at 1850 with range 99-143/55-93; a single hypertensive reading was 146/83 at 1820 HR 92 bpm SpO2 96% Temp 98 F Assessment and Plan Assessment: active labor Plan: continuous present management Comments: at 39w2d IOL for GHTN vs. elective FHR Cat 2 Intact membranes Active labor Normotensive Pitocin turned down to 10 mu/min at 1800. Repeat serum PET labs. SVE at 1848 after epidural placement. Consider AROM. Anticipate
--- NOTE | 2024-06-19 19:45 | PM.AN.REGBLK ---
Regional Block Pre-procedure Procedure: Continuous Lumbar Epidural for L&D Attending OB provider: Brandee Miranda PMH/ROS narrative: term labor, gestational hypertension, well controlled. ASA Class: III Medications: Current Medications Generic Name Dose Route Start Last Admin Trade Name Freq PRN Reason Stop Dose Admin Calcium Carbonate 1,000 mg 06/19/24 07:56 Calcium Carbonate 500 Mg Tab PO Q2HR PRN Dyspepsia Carboprost Tromethamine 250 mcg 06/19/24 07:56 Carboprost 250 Mcg/Ml Ampul IM Q90M PRN Bleeding Oxytocin/Lactated Ringer's 30 unit in 500 mls @ 200 mls/hr 06/19/24 07:56 Oxytocin Premix IV CONT PRN Bleeding Protocol Tranexamic Acid 1,000 mg/ 100 mls @ 600 mls/hr 06/19/24 07:56 Sodium Chloride IV NOW PRN Bleeding Oxytocin/Lactated Ringer's 30 unit in 500 mls @ 2 mls/hr 06/19/24 08:00 06/19/24 08:50 Oxytocin Premix IV 2 milliunit/min TITRATE JOY 2 mls/hr Administration Protocol 2 MILLIUNIT/MIN Lamotrigine 200 mg 06/19/24 21:00 Lamotrigine 100 Mg Tablet PO BEDTIME JOY Lidocaine HCl 20 ml 06/19/24 07:56 Lidocaine 1% 20 Ml INJ INTRA-OP PRN Post Delivery Methylergonovine Maleate 0.2 mg 06/19/24 07:56 Methylergonovine 0.2 Mg Tablet PO Q6HR PRN Heavy Bleeding Mineral Oil 30 ml 06/19/24 07:56 Mineral Oil 30 Ml Udc TOP PRN PRN Version Misoprostol 800 mcg 06/19/24 07:56 Misoprostol 200 Mcg Tablet [place] NOW PRN Bleeding Misoprostol 400 mcg 06/19/24 07:56 Misoprostol 200 Mcg Tablet SL NOW PRN Bleeding Naloxone HCl 0.2 mg 06/19/24 07:56 Naloxone 0.4 Mg/Ml Vial IV Q2MIN PRN Opiate Reversal Ondansetron HCl 4 mg 06/19/24 07:56 06/19/24 17:28 Ondansetron 4 Mg/2 Ml Inj IV 4 mg Q4HR PRN Administration Nausea And Vomiting Oxytocin 10 unit 06/19/24 07:56 Oxytocin 10 Unit/Ml Vial IM NOW PRN Bleeding Allergies: Allergies Allergy/AdvReac Type Severity Reaction Status Date / Time fluoxetine [From Prozac] AdvReac Severe Agitated Verified 06/19/24 10:13 nitrofurantoin AdvReac Severe Nausea Verified 06/19/24 10:13 [From Macrobid] Procedure Insertion date: 06/19/24 Insertion time: 18:22 Prep/Local: betadine x3 and 1% lidocaine Interspace: L34 Patient position: sitting Needle: 18 gauge [employer] (CSE: 27g [place] through [place], clear CSF, 1mL 0.25% bupiv) Loss of resistance with: saline JOHNNIE at (cm): 7 Catheter placed at SKIN (cm): 14 Catheter in SPACE (cm): 7 Insertion: No CSF, No Blood, No Paresthesia with insertion, No Paresthesia with injection and No Test dose reaction Initial Medications TEST DOSE time: 18:23 TEST DOSE: 1.5% lidocaine with epinephrine 1:200k (mL): 3 BOLUS DOSE time: 18:29 BOLUS DOSE (mL): 4 BOLUS DOSE med: other (infusate) Infusion INFUSION: 0.125% bupivacaine Initial rate (mL/hr): 10 Post-procedure Anesthesia date START: 06/19/24 Anesthesia time START: 18:12 Anesthesia date END: 06/19/24 Anesthesia time END: 21:45 Post-procedure Anesthesia Assessment: Yes CV function: HR/BP stable, Yes Resp function: RR/sat/airway adequate, Yes Post-op hydration adequate, Yes Pain control adequate, Yes Nausea & vomiting absent, Yes Temperature > 36 C, Yes Mental status appropriate and No Anesthesia complications
[2024-06-19 19:50] LABS: Add Manual Diff / Slide Review NO; Basophils Absolute Auto 100 /uL (0-100); Basophils Percent Auto 0.8 % (0-2); Eosinophils Absolute Auto 100 /uL (0-450); Eosinophils Percent Auto 0.8 % (2-4); Hematocrit 38.1 % (36-46); Hemoglobin 12.3 g/dL (12.0-16.0); Lymphocytes Absolute Auto 1900 /uL (1100-4500); Mean Corpuscular HGB Conc 32.2 % (30-36); Mean Corpuscular Hemoglobin 25.7 PG (26-34); Mean Corpuscular Volume 79.5 fL (80-100); Monocytes Absolute Auto 700 /uL (0-900); Monocytes Percent Auto 3.8 % (3-14); Neutrophils Absolute Auto 14300 /uL (1500-7000); Neutrophils Percent Auto 83.6 % (50-75); Platelet Count 280 X10^3/uL (150-400); Red Blood Cell Count 4.79 X10^6/uL (4.0-5.2); Red Cell Distribution Width 18.2 % (11.6-14.8); White Blood Cell Count 17.2 X10^3/uL (4.5-11.0)
[2024-06-19 20:01] LABS: Alanine Aminotransferase 14 IU/L (<35); Albumin 3.8 g/dL (3.5-5.0); Albumin Globulin Ratio 1.4 (1.0-2.8); Alkaline Phosphatase 163 U/L (38-126); Aspartate Aminotransferase 21 IU/L (14-36); BUN Creatinine Ratio 12.9 (6-22); Bilirubin Total 0.4 mg/dL (0.2-1.3); Blood Urea Nitrogen 8 mg/dL (7-17); Calcium 9.2 mg/dL (8.4-10.2); Carbon Dioxide 23 mmol/L (22-32); Chloride 104 mmol/L (98-107); Estimated Glomerular Filt Rate > 60 mL/min (>60); Globulin 2.7 g/dL (1.7-4.1); Glucose 122 mg/dL (70-100); HEMOLYSIS < 15 (0-50); Potassium 4.1 mmol/L (3.4-5.1); Sodium 133 mmol/L (137-145); Total Protein 6.5 g/dL (6.3-8.2); Uric Acid 3.9 mg/dL (2.5-6.2)
--- NOTE | 2024-06-19 20:47 | PM.OBPNLAB ---
Date/Time Date Patient Seen: 06/19/24 Time Patient Seen: 20:48 Pain Control Pain control: epidural Pelvic Exam Dilation (cm): 8 Effacement (%): 85 station: 0 Amniotic membrane status: Ruptured (AROM, clear fluid) Comments: VS: 107/63 HR: 93 bpm SpO2 99% Contractions Monitor mode: External (Sophie) Pitocin rate (mU/min): 10 Contraction frequency (min): 3 (1-3) Contraction pattern: Regular Contraction intensity: Mild Status status: Category ll Heart Rate Baseline: 135 Monitor Accelerations: Present Monitor Decelerations: Variable Monitor Variability: Moderate Assessment and Plan Assessment: active labor Plan: continuous present management Comments: A: No Rhogam indicated No antibiotics indicated Active labor Normal PET labs Cat II status, reassuring P: AROM with clear fluid Continue pitocin at current rate Position change with peanut ball Continue monitoring BP q2 hours Expect NSVB soon
[2024-06-19] MEDS: lamoTRIgine 100 MG TABLET 200 MG PO (21:05)
--- NOTE | 2024-06-19 22:04 | P.PCNOB_ITS ---
Labor & Delivery Delivery date: 06/19/24 Cervical ripening method: none Induction method: per pitocin protocol Delivery augmentation: rupture of membranes Delivery monitor: external FHT Route of delivery: L&D Laceration Description: None Quantitative Blood Loss: 635 Anesthesia Type: Epidural Baby 1: Infant gender: Male Presentation: vertex Position: Left Occiput Anterior Placenta delivery description: Spontaneous and Normal Configuration Cord Vessel Description: 3 Vessels score (1 min): 8 score (5 min): 8 weight: 3508 kg Narrative: Labor progressed quickly after AROM and coping with a well working epidural. Bleeding noted during labor included clots with cervical change in the active p hase. Ann felt the spontaneous urge to push and was assumed complete, complete. Nursing staff used a straight cath to empty her bladdern and then we assisted Ann to her L side at her request to push. She pushed for a rapid 2nd stage, less than 10 minutes. Baby emerged PANCHO and delivered his own anterior shoulder; he did not restitute due to tight nuchal cord but was somersaulted toward the maternal R thigh and then nuchal cord was released by SNM. Single, vigorous, infant male was passed through the maternal legs and placed on maternal abdomen. Dark red bleeding noted and Chux pad weighed for 325 mL. The cord was double clamped by CNM and cut by FOB after the cord lost vigorous pulse and Pitocin was started immediately for active management of the 3rd stage. Cord blood collected by CNM to send to lab due to maternal blood type O positive. More moderate bleeding prior to placental delivery but minimal after. QBL 635mL. Webber delivery of apparently intact placenta and 3 vessel cord delivered with maternal effort. No jovanny-urethral, vaginal or perineal tears upon inspection. Ann and Jakob thrilled to meet their son, Marcus. Mother and baby were skin to skin and vital signs were stable. initiated shortly thereafter. LORRIE Laguerre, ENRIKE Plan for aftercare: Routine care
[2024-06-20] MEDS: IBUPROFEN 600 MG TABLET PO ×2 (06:22→13:12)
[2024-06-20 06:58] LABS: Add Manual Diff / Slide Review NO; Basophils Absolute Auto 0 /uL (0-100); Basophils Percent Auto 0.3 % (0-2); Eosinophils Absolute Auto 300 /uL (0-450); Eosinophils Percent Auto 1.6 % (2-4); Hematocrit 34.9 % (36-46); Hemoglobin 11.3 g/dL (12.0-16.0); Lymphocytes Absolute Auto 3700 /uL (1100-4500); Lymphocytes Percent Auto 20.7 % (25-40); Mean Corpuscular HGB Conc 32.3 % (30-36); Mean Corpuscular Hemoglobin 25.5 PG (26-34); Mean Corpuscular Volume 78.9 fL (80-100); Monocytes Absolute Auto 1100 /uL (0-900); Monocytes Percent Auto 6.3 % (3-14); Neutrophils Absolute Auto 12700 /uL (1500-7000); Neutrophils Percent Auto 71.1 % (50-75); Platelet Count 287 X10^3/uL (150-400); Red Blood Cell Count 4.43 X10^6/uL (4.0-5.2); Red Cell Distribution Width 17.8 % (11.6-14.8); White Blood Cell Count 17.9 X10^3/uL (4.5-11.0)
[2024-06-20 07:12] LABS: Alanine Aminotransferase 13 IU/L (<35); Albumin 3.5 g/dL (3.5-5.0); Albumin Globulin Ratio 1.3 (1.0-2.8); Alkaline Phosphatase 141 U/L (38-126); Aspartate Aminotransferase 24 IU/L (14-36); BUN Creatinine Ratio 14.6 (6-22); Bilirubin Total 0.3 mg/dL (0.2-1.3); Blood Urea Nitrogen 7 mg/dL (7-17); Calcium 8.9 mg/dL (8.4-10.2); Carbon Dioxide 22 mmol/L (22-32); Chloride 106 mmol/L (98-107); Estimated Glomerular Filt Rate > 60 mL/min (>60); Globulin 2.7 g/dL (1.7-4.1); Glucose 87 mg/dL (70-100); HEMOLYSIS < 15 (0-50); Potassium 3.9 mmol/L (3.4-5.1); Sodium 132 mmol/L (137-145); Total Protein 6.2 g/dL (6.3-8.2)
[2024-06-20] MEDS: ACETAMINOPHEN 325 MG TABLET 650 MG PO ×2 (07:19→17:39)
[2024-06-20] MEDS: lamoTRIgine 100 MG TABLET 200 MG PO (10:15)
[2024-06-20] MEDS: HYDROCODONE/ACET 5/325 TABLET 1 TAB PO (10:34)
--- NOTE | 2024-06-20 17:16 | P.DS_ITS ---
Discharge Providers Provider Date of admission: 06/19/24 07:17 Discharge Date: 06/20/24 Primary care physician: RONNIE Lynch Consults: 06/19/24 07:57 Consult to Anesthesiology Urgent Comment: Consulting Provider: Anesthesiologist Reason for consultation: Epidural Has provider been notified: No 06/20/24 22:07 Consult to Crossing Supervisor Routine Comment: Discharge provider: Brandee Miranda CNM, ARNP Summary Hospital Course Date Patient Seen: 06/20/24 Time Patient Seen: 17:16 Diagnoses: o80, Z39.1 NSVB, intact perineum, Peripartum Data Delivery Method: Natural Vaginal Laceration Description: None [place] 1: Gender: Male Discharge Diagnosis (1) (normal spontaneous vaginal delivery): Status: Acute (2) Breast feeding status of mother: Status: Acute (3) History of gestational hypertension: Status: Acute (4) Normotensive: Status: Acute Status at Discharge Cognitive/behavioral status at discharge: oriented and calm Functional status at discharge: independent ambulation Overall status at discharge: patient is progressing back to baseline Time Spent with Patient Time attestation: Total time spent providing and/or coordinating discharge services: Time spent: Less than 30 minutes Specific discharge activities: discharge teaching Objective Labs 06/20/24 06:35 06/20/24 06:35 Labs: Laboratory Results - last 24 hr 06/19/24 06/20/24 19:37 06:35 WBC 17.2 H 17.9 H RBC 4.79 4.43 Hgb 12.3 11.3 L Hct 38.1 34.9 L MCV 79.5 L 78.9 L MCH 25.7 L 25.5 L MCHC 32.2 32.3 RDW 18.2 H 17.8 H Plt Count 280 287 Neut % (Auto) 83.6 H 71.1 Lymph % (Auto) 11.0 L 20.7 L [place] % (Auto) 3.8 6.3 Eos % (Auto) 0.8 L 1.6 L Baso % (Auto) 0.8 0.3 Neut # (Auto) 30519 H 72458 H Lymph # (Auto) 1900 3700 [place] # (Auto) 700 1100 H Eos # (Auto) 100 300 Baso # (Auto) 100 0 Sodium 133 L 132 L Potassium 4.1 3.9 Chloride 104 106 Carbon Dioxide 23 22 BUN 8 7 Creatinine 0.62 0.48 L Estimated GFR > 60 > 60 BUN/Creatinine Ratio 12.9 14.6 Glucose 122 H 87 Uric Acid 3.9 Calcium 9.2 8.9 Total Bilirubin 0.4 0.3 AST 21 24 ALT 14 13 Alkaline Phosphatase 163 H 141 H Total Protein 6.5 6.2 L Albumin 3.8 3.5 Globulin 2.7 2.7 Albumin/Globulin Ratio 1.4 1.3 Exam Vital Signs (past 8 hours): Normotensive today. Only one elevated BP during admission. BP: 118/82 HR: 89 bpm RR 16/min Temp 98.7 F temporal SpO2: 98% Const General: healthy appearing, comfortable and well groomed Orientation: alert, awake and oriented x3 Resp Effort & Inspection: normal respiratory effort and able to speak in complete sentences Cardio Rate: regular rate Other: Fundus firm at U, midline. Lochia light Perineum intact with minimal edema Skin General: no rashes or lesions noted Extrem Other: Mild to no edema Discharge Plan Discharge Plan Patient Disposition: Home Discharge orders & Medications Prescriptions: Continued albuterol sulfate 90 mcg/actuation HFA aerosol inhaler 2 puff inhalation Q4-6H PRN (Reason: shortness of breath or wheezing) Qty: 8.5 2RF lamotrigine 200 mg tablet 200 mg PO DAILY Multi 27-800 mg-mcg Tablet 1 tab PO DAILY Discontinued aspirin 81 mg tablet,delayed release (DR/EC) 81 mg PO DAILY Medication counseling provided by Pharmacist: No Follow up/Referrals: Valencia Albert FNP- [Primary Care Provider] - Brandee Miranda CNM, OSTOMY RN [[facility] Specialist] - 1 Week (Appointment scheduled for follow up 06/25/24 Pt will do daily BP checks at home and report in to CNZoie.) Diet/Activity/Treatments Diet: Diet as Tolerated and Regular Diet comment: increase fiber and fluid Activity: low davila x 2 weeks Cold/Heat Therapy: as needed Visit Report/Discharge Packet Stand Alone Forms: Patient Portal/API, Stroke Signs & Symptoms Discharge Data Primary Care Provider: Valencia Albert
== END 2024-06-20 18:17 | disposition home or self-care (01) | DRG 560 ==
PROVIDERS: Admitting Provider Advanced Practice Midwife; PCP Nurse Practitioner Family; Referring Provider Advanced Practice Midwife; Visit Provider Advanced Practice Midwife
DX: O13.4 Gestational [pregnancy-induced] hypertension without significant proteinuria, complicating childbirth (principal); O99.344 Other mental disorders complicating childbirth; F31.9 Bipolar disorder, unspecified; O76 Abnormality in fetal heart rate and rhythm complicating labor and delivery; O99.214 Obesity complicating childbirth; E66.01 Morbid (severe) obesity due to excess calories; Z3A.39 39 weeks gestation of pregnancy; Z37.0 Single live birth; O99.213 Obesity complicating pregnancy, third trimester; O26.893 Other specified pregnancy related conditions, third trimester; R03.0 Elevated blood-pressure reading, without diagnosis of hypertension; H53.8 Other visual disturbances
CPT/HCPCS: 36415; 59050; 80053; 82570; 84156; 84550; 85025; 86850; 86900; 86901; G0378; G0379; J2405; J2590